=== PATIENT | male | born 1950 | race African-American/Black ===

== ENCOUNTER 2020-06-15 12:42 | Inpatient (IN) | payer OTHER ==
[~2020-06-15] VITALS: Ht 170.2 cm; Wt 71.2 kg
--- NOTE | 2020-06-15 15:25 | NUR ---
Admission Note with Justification for Admission to [facility] Patient admitted to [facility] for protective oversight for emergency stabilization of acute psychiatric crisis. Pt admitted from: [facility] Mode of arrival: EMS Accompanied By: Secure Transport Precipitating behaviors that initiated intake and admission: agitation, paranoia Description of failure of out patient attempts at stabilization in previous setting list behavior and medication trials: seroquel Behaviors and assessment findings upon admission: Agitation, threatening, paranoid Plan: Admit for protective oversight for adjustment and stabilization of medications, behaviors and mood. Intense treatment regimen including groups, medication adjustments, therapy, consistent regimen for ADL's, self care, and sleep hygiene. Daily monitoring by Inpatient staff, Psychiatry, and Medical Physician.
--- NOTE | 2020-06-15 15:51 | NUR ---
Mauricio has [facility] Medicaid insurance. Call placed to Ame Riddle at [facility] and received pending authorization number of [id number]. Call reference number is [place] 06/15/20 2:53pm. Clinical updates need to be faxed to [phone].
[2020-06-15 17:15] VITALS: BP 127/73
[2020-06-15] MEDS ORDERED: ACET325T21 PO (17:46)
[2020-06-15] MEDS ORDERED: QUET25TA5 PO (17:47)
[2020-06-15] MEDS ORDERED: CETI10TA74 PO (17:47)
[2020-06-15] MEDS ORDERED: HYDR-2765 PO (17:47)
[2020-06-15] MEDS ORDERED: THIA100T22 PO (17:47)
[2020-06-15] MEDS ORDERED: AMLO2.5T2 PO (17:47)
[2020-06-15] MEDS ORDERED: FOLI0.8T32 PO (17:47)
[2020-06-15] MEDS ORDERED: LORA0.5T21 PO ×2 (17:47)
[2020-06-15] MEDS ORDERED: MAG355OR12 PO ×2 (17:47)
[2020-06-15] MEDS ORDERED: DOCU100C28 PO (17:47)
[2020-06-15] MEDS ORDERED: OMEP20TA63 PO (17:47)
[2020-06-15] MEDS ORDERED: TRAZ-125 PO ×2 (17:47)
[2020-06-15] MEDS ORDERED: DOCUSATE SODIUM 100 MG CAPSULE PO PRN (18:00)
[2020-06-15] MEDS: CETIRIZINE HCL 10 MG TABLET PO SCH (20:08)
[2020-06-15] MEDS: THIAMINE 100 MG TABLET. PO SCH (20:08)
[2020-06-15] MEDS: LORazepam 0.5 MG TABLET PO SCH (20:09)
[2020-06-15] MEDS: traZODone 100 MG TABLET. PO SCH (20:09)
[2020-06-15] MEDS: amLODIPine BESYLATE 2.5 MG TABLET PO SCH (20:09)
[2020-06-15] MEDS: HYDROcodone/APAP 7.5/325MG 1 TAB TABLET PO SCH (20:10)
[2020-06-15] MEDS ORDERED: QUEtiapine 25 MG TABLET. PO SCH (21:00)
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
[2020-06-16] MEDS: ACETAMINOPHEN 325 MG TABLET PO PRN (00:20)
[2020-06-16 05:29] VITALS: BP 131/78
[2020-06-16 07:48] LABS: BASO # 0.1 x10^3/uL (0.0-0.2); BASO % 1 % (0-3); EOS # 0.2 x10^3/uL (0.0-0.7); EOS % 3 % (0-3); HEMATOCRIT 29.7 % (39.0-53.0); HEMOGLOBIN 9.5 g/dL (13.0-17.5); LYMPH # 1.1 x10^3/uL (1.0-4.8); LYMPH % 15 % (24-48); MEAN CORPUSCULAR HEMOGLOBIN 27 pg (25-35); MEAN CORPUSCULAR HGB CONC 32 g/dL (31-37); MEAN CORPUSCULAR VOLUME 85 fL (79-100); MONO # 0.5 x10^3/uL (0.0-1.1); MONO % 7 % (0-9); NEUT # 5.3 x10^3uL (1.8-7.7); NEUT % 74 % (31-73); PLATELET COUNT 328 x10^3/uL (140-400); RED BLOOD COUNT 3.48 x10^6/uL (4.30-5.70); RED CELL DISTRIBUTION WIDTH 14.8 % (11.5-14.5); WHITE BLOOD COUNT 7.2 x10^3/uL (4.0-11.0)
[2020-06-16 08:06] LABS: ALBUMIN 3.1 g/dL (3.4-5.0); ALBUMIN/GLOBULIN RATIO 0.8 (1.0-1.7); CALCIUM 8.8 mg/dL (8.5-10.1); CREATININE 0.8 mg/dL (0.7-1.3); GFR 116.3; MAGNESIUM 2.2 mg/dL (1.8-2.4); POTASSIUM 3.7 mmol/L (3.5-5.1); TOTAL BILIRUBIN 0.4 mg/dL (0.2-1.0); TOTAL PROTEIN 7.2 g/dL (6.4-8.2)
[2020-06-16] MEDS: traZODone 100 MG TABLET. PO SCH ×2 (08:47→19:47)
[2020-06-16] MEDS: FOLIC/VIT B COMP W-C (RENAL) TABLET. PO SCH (08:47)
[2020-06-16] MEDS: LORazepam 0.5 MG TABLET PO SCH ×2 (08:47→19:49)
[2020-06-16] MEDS: THIAMINE 100 MG TABLET. PO SCH ×2 (08:47→19:48)
[2020-06-16] MEDS: HYDROcodone/APAP 7.5/325MG 1 TAB TABLET PO SCH ×2 (08:47→19:49)
[2020-06-16] MEDS: amLODIPine BESYLATE 2.5 MG TABLET PO SCH ×2 (08:48→19:48)
[2020-06-16] MEDS: PANTOPRAZOLE 40 MG TABLET. PO SCH (08:48)
[2020-06-16] MEDS ORDERED: MAG HYDROX/AL HYDROX/SIMETH 30 ML ORAL.SUSP PO SCH (09:00)
[2020-06-16 11:13] LABS: THYROID STIM HORMONE (TSH) 1.335 uIU/mL (0.358-3.740)
[2020-06-16 15:52] VITALS: BP 111/72
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
[2020-06-16] MEDS: CETIRIZINE HCL 10 MG TABLET PO SCH (19:47)
[2020-06-16] MEDS: MIRTAZAPINE 7.5 MG TABLET. PO SCH (19:48)
--- NOTE | 2020-06-16 21:28 | PDOC ---
Exam Note: Srini Note: Please also refer to the separate dictated note~for this date of service dictated separately.~Patient seen individually. Discussed the patient with Nursing staff reviewed the chart.~Reviewed interim history and current functioning. Reviewed vital signs,~Labs/ Radiology~and current medications noted below. Continue current treatment with the changes noted in the dictated addendum note Assessment: Vital Signs/I&O: Vital Signs Date Time Temp Pulse Resp B/P (MAP) Pulse Ox O2 Delivery O2 Flow Rate FiO2 06/16/20 21:04 98 06/16/20 19:48 110 111/72 06/16/20 15:52 98.5 20 06/16/20 09:49 Room Air I & O 06/15/20 06/15/20 06/16/20 15:00 23:00 07:00 Intake Total 360 ml Balance 360 ml Labs: Laboratory Tests Test 06/16/20 06:00 06/16/20 07:30 Coronavirus (PCR) Not detected (Not Detected) White Blood Count 7.2 x10^3/uL (4.0-11.0) Red Blood Count 3.48 x10^6/uL (4.30-5.70) L Hemoglobin 9.5 g/dL (13.0-17.5) L Hematocrit 29.7 % (39.0-53.0) L Mean Corpuscular Volume 85 fL (79-100) Mean Corpuscular Hemoglobin 27 pg (25-35) Mean Corpuscular Hemoglobin Concent 32 g/dL (31-37) Red Cell Distribution Width 14.8 % (11.5-14.5) H Platelet Count 328 x10^3/uL (140-400) Neutrophils (%) (Auto) 74 % (31-73) H Lymphocytes (%) (Auto) 15 % (24-48) L Monocytes (%) (Auto) 7 % (0-9) Eosinophils (%) (Auto) 3 % (0-3) Basophils (%) (Auto) 1 % (0-3) Neutrophils # (Auto) 5.3 x10^3uL (1.8-7.7) Lymphocytes # (Auto) 1.1 x10^3/uL (1.0-4.8) Monocytes # (Auto) 0.5 x10^3/uL (0.0-1.1) Eosinophils # (Auto) 0.2 x10^3/uL (0.0-0.7) Basophils # (Auto) 0.1 x10^3/uL (0.0-0.2) Sodium Level 140 mmol/L (136-145) Potassium Level 3.7 mmol/L (3.5-5.1) Chloride Level 103 mmol/L (98-107) Carbon Dioxide Level 30 mmol/L (21-32) Anion Gap 7 (6-14) Blood Urea Nitrogen 18 mg/dL (8-26) Creatinine 0.8 mg/dL (0.7-1.3) Estimated GFR (Cockcroft-Gault) 116.3 BUN/Creatinine Ratio 23 (6-20) H Glucose Level 114 mg/dL (70-99) H Calcium Level 8.8 mg/dL (8.5-10.1) Magnesium Level 2.2 mg/dL (1.8-2.4) Iron Level 75 ug/dL (65-175) Total Iron Binding Capacity 317 ug/dL (250-450) Iron Saturation 24 % (15-34) Total Bilirubin 0.4 mg/dL (0.2-1.0) Aspartate Amino Transferase (AST) 24 U/L (15-37) Alanine Aminotransferase (ALT) 56 U/L (16-63) Alkaline Phosphatase 125 U/L (46-116) H Total Protein 7.2 g/dL (6.4-8.2) Albumin 3.1 g/dL (3.4-5.0) L Albumin/Globulin Ratio 0.8 (1.0-1.7) L Triglycerides Level 53 mg/dL (0-150) Cholesterol Level 162 mg/dL (0-200) LDL Cholesterol, Calculated 91 mg/dL (0-100) VLDL Cholesterol, Calculated 10 mg/dL (0-40) Non-HDL Cholesterol Calculated 101 mg/dL (0-129) HDL Cholesterol 61 mg/dL (40-60) H Cholesterol/HDL Ratio 2.0 Thyroid Stimulating Hormone (TSH) 1.335 uIU/mL (0.358-3.740) Current Medications: Meds: Current Medications Medications (Trade) Dose Ordered Sig/Jasmeet Route PRN Reason Start Time Stop Time Status Last Admin Dose Admin Multivit/Ca Carb/ B Cmplx/FA/Prenat (Nephro-Marilyn) 1 tab DAILY PO 06/16/20 09:00 06/16/20 08:47 Pantoprazole Sodium (Protonix) 40 mg DAILY PO 06/16/20 09:00 06/16/20 08:48 Mirtazapine (Remeron) 7.5 mg QHS PO 06/16/20 21:00 06/16/20 19:48 I have reviewed the current psychotropics carefully including drug interactions. Risk benefit ratio favors no change other than as noted in my dictated progress note. ARY PABLO MD Jun 16, 2020 21:28
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
--- NOTE | 2020-06-17 00:33 | PN ---
DATE: 06/16/2020 PSYCHIATRIC PROGRESS NOTE This note covers elements not covered in my initial note of 06/16/2020. SUBJECTIVE: I met with the patient in the evening of 06/16/2020. At length discussed with MALACHI Locke. The patient slept just 2 hours previous night. He has been anxious, restless, hyperverbal, constantly moving around the unit. He is demanding to leave, restless, paranoid at night. REVIEW OF SYSTEMS: No CV, , pulmonary, eye system symptoms on review. MENTAL STATUS EXAM: Oriented to himself. Insight, judgment, recent and remote memory, attention, concentration, fund of knowledge poor, consistent with his diagnosis. IMPRESSION: Major neurocognitive disorder, multifactorial, probably alcohol related and vascular with delusion, depression, behavioral disturbance; anxiety disorder, unspecified; impulse control disorder, unspecified. PLAN: The patient slept just 2 hours previous night. We will add Remeron 7.5 mg at bedtime to help with insomnia. Change Seroquel 25 mg at bedtime to 25 mg at 9 a.m., 1:00 p.m., and 5:00 p.m. We will make further adjustments as clinically indicated. MAN Matt PABLO MD DR: MARISELA/deejay JOB#: [id number] / [id number]
[2020-06-17 02:06] LABS: THYROXINE 5.2 ug/dL (4.5-12.0)
[2020-06-17] MEDS: ACETAMINOPHEN 325 MG TABLET PO PRN ×2 (04:54→23:32)
--- NOTE | 2020-06-17 05:27 | RAD ---
3 view bilateral knee radiographs 06/17/2020 CLINICAL HISTORY: Bilateral pain and swelling involving both knees. AP, lateral and oblique digital radiographs of both knees were obtained. No fracture or dislocation o f either knee is seen. A serpiginous sclerotic area is seen involving the proximal metaphysis/diaphys is of the left tibia which may represent an area of bone infarction. Mild to moderate degenerative ch anges are seen involving both knees. There is no radiographic evidence of a joint effusion. Scattered atherosclerotic calcification is seen in the region popliteal arteries and their branches. IMPRESSION: No acute osseous abnormality is seen. Electronically signed by: Cristhian Cárdenas MD (06/17/2020 5:24 AM) [id number]
[2020-06-17 05:38] LABS: HEMOGLOBIN A1C 4.6 % (4.8-5.6)
[2020-06-17] MEDS: MAG HYDROX/AL HYDROX/SIMETH 30 ML ORAL.SUSP PO PRN (06:13)
[2020-06-17 06:32] VITALS: BP 128/79
[2020-06-17] MEDS: LORazepam 0.5 MG TABLET PO SCH ×2 (08:29→21:04)
[2020-06-17] MEDS: amLODIPine BESYLATE 2.5 MG TABLET PO SCH ×2 (08:29→18:35)
[2020-06-17] MEDS: traZODone 100 MG TABLET. PO SCH ×2 (08:29→18:34)
[2020-06-17] MEDS: FOLIC/VIT B COMP W-C (RENAL) TABLET. PO SCH (08:30)
[2020-06-17] MEDS: QUEtiapine 25 MG TABLET. PO SCH ×3 (08:30→15:09)
[2020-06-17] MEDS: HYDROcodone/APAP 7.5/325MG 1 TAB TABLET PO SCH ×2 (08:30→21:04)
[2020-06-17] MEDS: THIAMINE 100 MG TABLET. PO SCH ×2 (08:30→18:34)
[2020-06-17] MEDS: PANTOPRAZOLE 40 MG TABLET. PO SCH (08:30)
--- NOTE | 2020-06-17 09:53 | RAD ---
EXAM: Bilateral lower extremity venous Doppler sonogram. HISTORY: Pain and swelling. TECHNIQUE: Ventura scale and color Doppler sonographic evaluation of the bilateral lower extremity veins with spectral waveform analysis was performed. FINDINGS: There is normal color flow, normal compressibility and there are normal spectral waveforms in the common femoral, superficial femoral, popliteal, posterior tibial and greater saphenous veins. There is bilateral lower extremity soft tissue edema. There are prominent bilateral inguinal lymph no latasha. These maintain fatty black are likely reactive in etiology. IMPRESSION: No Doppler evidence of lower extremity deep venous thrombosis. Electronically signed by: Angelica Alonzo MD (06/17/2020 9:50 AM) [id number]
--- NOTE | 2020-06-17 15:06 | NUR ---
Patient is obsessed with leaving. patient is wandering and asking all staff to let jaycob go home. Patient difficult to redirect.
[2020-06-17 16:20] VITALS: BP 124/81
[2020-06-17] MEDS: CETIRIZINE HCL 10 MG TABLET PO SCH (18:33)
[2020-06-17] MEDS: MIRTAZAPINE 7.5 MG TABLET. PO SCH (18:34)
--- NOTE | 2020-06-17 21:01 | PDOC ---
Exam Note: Srini Note: Please also refer to the separate dictated note~for this date of service dictated separately.~Patient seen individually. Discussed the patient with Nursing staff reviewed the chart.~Reviewed interim history and current functioning. Reviewed vital signs,~Labs/ Radiology~and current medications noted below. Continue current treatment with the changes noted in the dictated addendum note Assessment: Vital Signs/I&O: Vital Signs Date Time Temp Pulse Resp B/P (MAP) Pulse Ox O2 Delivery O2 Flow Rate FiO2 06/17/20 18:35 108 124/81 06/17/20 16:20 97.0 20 94 06/17/20 09:47 Room Air I & O 06/16/20 06/16/20 06/17/20 15:00 23:00 07:00 Intake Total 480 ml 750 ml Balance 480 ml 750 ml Current Medications: Meds: Current Medications Medications (Trade) Dose Ordered Sig/Jasmeet Route PRN Reason Start Time Stop Time Status Last Admin Dose Admin Quetiapine Fumarate (SEROquel) 25 mg TIDAC PO 06/17/20 09:00 06/17/20 15:09 Mirtazapine (Remeron) 7.5 mg QHS PO 06/16/20 21:00 06/17/20 18:34 I have reviewed the current psychotropics carefully including drug interactions. Risk benefit ratio favors no change other than as noted in my dictated progress note. Diagnosis: Problems: (1) Major neurocognitive disorder (2) Dementia associated with alcoholism with behavioral disturbance (3) Dementia in Alzheimer's disease with delusions (4) Dementia in Alzheimer's disease with depression (5) Dementia, vascular, with delusions (6) Dementia, vascular, with depression (7) Anxiety disorder, unspecified (8) Impulse control disorder, unspecified ARY PABLO MD Jun 17, 2020 21:01
--- NOTE | 2020-06-17 23:59 | NUR ---
Patient is located in the hallway on assumption of care, walking around the unit. He continues to be hyperverbal, perseverative about his money and wanting to leave, and getting snacks and vanilla Ensures. Patient repeatedly talks about these subjects and when explanations are provided to him, he doesn't retain that information. Compliant with assessments and medications whole. PRN Zydis given to patient with HS meds, little effect. Complained of bilateral knee pain and requested PRN, Tylenol given at 2345, pending effect. Patient remains awake in his room at present time, sitting quietly. Will continue to monitor.
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
[2020-06-18 06:36] VITALS: BP 135/79
[2020-06-18] MEDS: QUEtiapine 25 MG TABLET. PO SCH ×3 (07:30→16:30)
--- NOTE | 2020-06-18 08:45 | PDOC ---
Exam Note: Srini Note: This note is a late entry for 06/17/2020 covers elements not covered in my initial note. Subjective: The patient was seen face to face in the evening of 06/17/2020 with Morales LY, reviewed the chart. The patient slept 3-1/2 hours previous night. The patient has been obsessed and fixated on discharge. He did have a shower, listening to music on his tablet. He remains quite confused. Review of Systems: No CV, , pulmonary, eye system symptoms on review. Mental Status Exam: The patient is oriented to himself. Insight and judgment, recent and remote memory, attention and concentration, fund of knowledge is poor consistent with his diagnosis. Laboratory Data: Reviewed. Impression: Major neurocognitive disorder Alzheimer vascular with delusion, depression, behavioral disturbance. Anxiety disorder unspecified. Impulse control disorder unspecified. Plan: No change from initial note. Assessment: Vital Signs/I&O: Vital Signs Date Time Temp Pulse Resp B/P (MAP) Pulse Ox O2 Delivery O2 Flow Rate FiO2 06/18/20 06:36 98.1 85 14 135/79 (97) 100 Room Air I & O 06/17/20 06/17/20 06/18/20 15:00 23:00 07:00 Intake Total 480 ml 480 ml 120 ml Balance 480 ml 480 ml 120 ml Current Medications: Meds: Current Medications Medications (Trade) Dose Ordered Sig/Jasmeet Route PRN Reason Start Time Stop Time Status Last Admin Dose Admin Acetaminophen (Tylenol) 650 mg PRN Q4HRS PRN PO MILD PAIN / TEMP > 100.3'F 06/15/20 18:00 06/17/20 23:32 Amlodipine Besylate (Norvasc) 2.5 mg BID PO 06/15/20 21:00 06/17/20 18:35 Cetirizine HCl (ZyrTEC) 10 mg HS PO 06/15/20 21:00 06/17/20 18:33 Docusate Sodium (Colace) 100 mg PRN BID PRN PO CONSTIPATION 06/15/20 18:00 Multivit/Ca Carb/ B Cmplx/FA/Prenat (Nephro-Marilyn) 1 tab DAILY PO 06/16/20 09:00 06/17/20 08:30 Acetaminophen/ Hydrocodone Bitart (Lortab 7.5/325) 1 tab BID PO 06/15/20 21:00 06/17/20 21:04 Lorazepam (Ativan) 0.5 mg BID PO 06/15/20 21:00 06/17/20 21:04 Al Hydroxide/Mg Hydroxide (Mylanta Plus Xs) 30 ml PRN DAILY PRN PO DYSPEPSIA 06/15/20 18:00 06/17/20 06:13 Al Hydroxide/Mg Hydroxide (Mylanta Plus Xs) 355 ml DAILY PO 06/16/20 09:00 UNV Quetiapine Fumarate (SEROquel) 25 mg HS PO 06/15/20 21:00 06/16/20 16:15 DC 06/15/20 20:09 Thiamine HCl (Vitamin B-1) 100 mg BID PO 06/15/20 21:00 06/17/20 18:34 Trazodone HCl (Desyrel) 100 mg BID PO 06/15/20 21:00 06/17/20 18:34 Pantoprazole Sodium (Protonix) 40 mg DAILY PO 06/16/20 09:00 06/17/20 08:30 Olanzapine (ZyPREXA ZYDIS) 5 mg PRN Q2HR PRN PO PSYCHOSIS 06/15/20 18:00 06/17/20 21:04 Quetiapine Fumarate (SEROquel) 25 mg TIDAC PO 06/17/20 09:00 06/17/20 15:09 Mirtazapine (Remeron) 7.5 mg QHS PO 06/16/20 21:00 06/17/20 18:34 Current Medications Medications (Trade) Dose Ordered Sig/Jasmeet Route PRN Reason Start Time Stop Time Status Last Admin Dose Admin Quetiapine Fumarate (SEROquel) 25 mg TIDAC PO 06/17/20 09:00 06/17/20 15:09 I have reviewed the current psychotropics carefully including drug interactions. Risk benefit ratio favors no change other than as noted in my dictated progress note. Diagnosis: Problems: (1) Impulse control disorder, unspecified (2) Anxiety disorder, unspecified (3) Dementia, vascular, with depression (4) Dementia, vascular, with delusions (5) Dementia in Alzheimer's disease with depression (6) Dementia in Alzheimer's disease with delusions (7) Major neurocognitive disorder (8) Dementia associated with alcoholism with behavioral disturbance ARY PABLO MD Jun 18, 2020 08:44
[2020-06-18] MEDS: traZODone 100 MG TABLET. PO SCH ×2 (09:00→20:49)
[2020-06-18] MEDS: amLODIPine BESYLATE 2.5 MG TABLET PO SCH ×2 (09:00→20:50)
[2020-06-18] MEDS: FOLIC/VIT B COMP W-C (RENAL) TABLET. PO SCH (09:00)
[2020-06-18] MEDS: THIAMINE 100 MG TABLET. PO SCH ×2 (09:00→20:49)
[2020-06-18] MEDS: PANTOPRAZOLE 40 MG TABLET. PO SCH (09:00)
[2020-06-18] MEDS: HYDROcodone/APAP 7.5/325MG 1 TAB TABLET PO SCH ×2 (09:00→21:01)
[2020-06-18] MEDS: LORazepam 0.5 MG TABLET PO SCH ×2 (09:00→21:01)
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
--- NOTE | 2020-06-18 11:40 | NUR ---
ACTIVITY THERAPY ASSESSMENT completed based on notes, observation and interview. Pt was laying in quiet room with her eyes open. Pt had pulled her arms through the top of her onesie which exposed a small quarter size bruise on her shoulder. Pt was impulsive, agitated and not redirectable during time of assessment. AT introduced herself and pt yelled at AT "I know who you are" in an agitated manner. AT asked if she remembered her and remembered being here and pt yelled "yes". AT asked pt what activities she likes to do, she yelled "none" . Pt yelled out all her answers and some often unrelated to the question being asked. When asked how old she was and what year it was pt yelled "51" and "". Pt said that she does not like activities with her family or friends. AT said "thank you Olga for meeting with me" which pt replied with "eladio Espinoza". As AT left room pt said "fucking [facility] [employer] Initial goal aimed to increase time management and stress management/relaxation skills. Pt will participate in at least three individual or group Activity Therapy sessions before discharge. Addendum: 06/25/20 at 1428 by CAROLIN PAGAN ACT DISREGARD. NOTE BELONGS TO A DIFFERENT PATIENT
--- NOTE | 2020-06-18 12:09 | NUR ---
See downtime med rec for am medication administration.
--- NOTE | 2020-06-18 12:30 | NUR ---
WEEKLY ACTIVITY THERAPY NOTE Date of Admission: 06/15/2020 Date of AT Assessment: 06/18 Precipitating behaviors that initiated intake and admission: agitation, paranoia Goal aimed: increase stress management and relaxation skills Initial Goal: Pt will participate in at least three Activity Therapy group sessions per week. Weekly progress towards goal: NA Group participation level: 2 min on Thursday Weekly highlights: briefly engaged in both groups on Thursday Behaviors observed: hyperverbal, jumps from thought to thought, difficulty focusing Plan: meet/ assess Pt Beneficial adaptations:
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
[2020-06-18 16:14] VITALS: BP 122/78
--- NOTE | 2020-06-18 17:21 | NUR ---
Pt has been fixated on various topics today ranging from calling his sister, having food delivered to [facility] for himself, his money, and various belongings. He often requires multiple attempts at explanation and redirection. He is complaint with medications and assessment, cooperative and appropriate in his interactions with staff and other pts. Will pass on to the next shift
[2020-06-18] MEDS: CETIRIZINE HCL 10 MG TABLET PO SCH (20:49)
[2020-06-18] MEDS ORDERED: MIRTAZAPINE 7.5 MG TABLET. PO SCH (21:00)
[2020-06-18] MEDS: MIRTAZAPINE 15 MG TABLET PO SCH (21:04)
--- NOTE | 2020-06-18 21:11 | PDOC ---
Exam Note: Srini Note: Please also refer to the separate dictated note~for this date of service dictated separately.~Patient seen individually. Discussed the patient with Nursing staff reviewed the chart.~Reviewed interim history and current functioning. Reviewed vital signs,~Labs/ Radiology~and current medications noted below. Continue current treatment with the changes noted in the dictated addendum note Assessment: Vital Signs/I&O: Vital Signs Date Time Temp Pulse Resp B/P (MAP) Pulse Ox O2 Delivery O2 Flow Rate FiO2 06/18/20 20:50 108 122/78 06/18/20 16:14 97.2 20 100 06/18/20 06:36 Room Air I & O 06/17/20 06/17/20 06/18/20 15:00 23:00 07:00 Intake Total 480 ml 480 ml 120 ml Balance 480 ml 480 ml 120 ml Current Medications: Meds: Current Medications Medications (Trade) Dose Ordered Sig/Jasmeet Route PRN Reason Start Time Stop Time Status Last Admin Dose Admin Acetaminophen (Tylenol) 650 mg PRN Q4HRS PRN PO MILD PAIN / TEMP > 100.3'F 06/15/20 18:00 06/17/20 23:32 Amlodipine Besylate (Norvasc) 2.5 mg BID PO 06/15/20 21:00 06/18/20 20:50 Cetirizine HCl (ZyrTEC) 10 mg HS PO 06/15/20 21:00 06/18/20 20:49 Docusate Sodium (Colace) 100 mg PRN BID PRN PO CONSTIPATION 06/15/20 18:00 Multivit/Ca Carb/ B Cmplx/FA/Prenat (Nephro-Marilyn) 1 tab DAILY PO 06/16/20 09:00 06/17/20 08:30 Acetaminophen/ Hydrocodone Bitart (Lortab 7.5/325) 1 tab BID PO 06/15/20 21:00 06/18/20 21:01 Lorazepam (Ativan) 0.5 mg BID PO 06/15/20 21:00 06/18/20 21:01 Al Hydroxide/Mg Hydroxide (Mylanta Plus Xs) 30 ml PRN DAILY PRN PO DYSPEPSIA 06/15/20 18:00 06/17/20 06:13 Al Hydroxide/Mg Hydroxide (Mylanta Plus Xs) 355 ml DAILY PO 06/16/20 09:00 UNV Quetiapine Fumarate (SEROquel) 25 mg HS PO 06/15/20 21:00 06/16/20 16:15 DC 06/15/20 20:09 Thiamine HCl (Vitamin B-1) 100 mg BID PO 06/15/20 21:00 06/18/20 20:49 Trazodone HCl (Desyrel) 100 mg BID PO 06/15/20 21:00 06/18/20 20:49 Pantoprazole Sodium (Protonix) 40 mg DAILY PO 06/16/20 09:00 06/17/20 08:30 Olanzapine (ZyPREXA ZYDIS) 5 mg PRN Q2HR PRN PO PSYCHOSIS 06/15/20 18:00 06/17/20 21:04 Quetiapine Fumarate (SEROquel) 25 mg TIDAC PO 06/17/20 09:00 06/18/20 16:30 Mirtazapine (Remeron) 7.5 mg QHS PO 06/16/20 21:00 06/18/20 20:59 DC 06/17/20 18:34 Sertraline HCl (Zoloft) 25 mg DAILY PO 06/19/20 09:00 Mirtazapine (Remeron) 7.5 mg QHS PO 06/18/20 21:00 06/18/20 20:59 DC Mirtazapine (Remeron) 15 mg QHS PO 06/18/20 21:00 06/18/20 21:04 Current Medications Medications (Trade) Dose Ordered Sig/Jasmeet Route PRN Reason Start Time Stop Time Status Last Admin Dose Admin Mirtazapine (Remeron) 15 mg QHS PO 06/18/20 21:00 06/18/20 21:04 I have reviewed the current psychotropics carefully including drug interactions. Risk benefit ratio favors no change other than as noted in my dictated progress note. Diagnosis: Problems: (1) Impulse control disorder, unspecified (2) Anxiety disorder, unspecified (3) Dementia, vascular, with depression (4) Dementia, vascular, with delusions (5) Dementia in Alzheimer's disease with depression (6) Dementia in Alzheimer's disease with delusions (7) Major neurocognitive disorder (8) Dementia associated with alcoholism with behavioral disturbance ARY PABLO MD Jun 18, 2020 21:11
--- NOTE | 2020-06-18 21:30 | NUR ---
Patient has been pacing in the hallway, wanting to make phone calls to his sister. He has also been asking for lotion for "his legs" and went into great detail about how he soaks his legs in epsom salts then puts lotion on them. (staff reported that he was actually using the lotion to masturbate). Patient angry when he cannot have any more lotion. Patient compliant with medications taken whole with water. Urine sample obtained, it was negative and did not go to culture.
[2020-06-18 21:49] LABS: BACTERIA,URINE 0 /HPF (0-FEW); BILIRUBIN,URINE NEG (NEG); CLARITY,URINE CLEAR; COLOR,URINE YELLOW; GLUCOSE,URINE NEG (NEG); NITRITE,URINE NEG (NEG); RBC,URINE 0 /HPF (0-2); WBC,URINE 0 /HPF (0-4)
--- NOTE | 2020-06-19 00:19 | NUR ---
Patient has been attention seeking most of the night, making frequent requests for water, snacks and lotion. When patient is told he cannot have these items because he already has had them multiple times this shift, he gets angry, curses and slams his door. PRN zyprexa given for agitation as ordered. Will continue to monitor.
[2020-06-19] MEDS: ACETAMINOPHEN 325 MG TABLET PO PRN (02:51)
[2020-06-19] MEDS: MAG HYDROX/AL HYDROX/SIMETH 30 ML ORAL.SUSP PO PRN (04:40)
--- NOTE | 2020-06-19 04:41 | NUR ---
Patient reports dyspepsia. Requests mylanta. PRN mylanta provided per order.
[2020-06-19 06:07] VITALS: BP 108/71
[2020-06-19] MEDS: QUEtiapine 25 MG TABLET. PO SCH ×2 (07:30→11:30)
[2020-06-19] MEDS: LORazepam 0.5 MG TABLET PO SCH ×2 (09:00→20:19)
[2020-06-19] MEDS: HYDROcodone/APAP 7.5/325MG 1 TAB TABLET PO SCH ×2 (09:00→20:20)
[2020-06-19] MEDS: FOLIC/VIT B COMP W-C (RENAL) TABLET. PO SCH (09:00)
[2020-06-19] MEDS: THIAMINE 100 MG TABLET. PO SCH ×2 (09:00→20:18)
[2020-06-19] MEDS: SERTRALINE 25 MG TABLET. PO SCH (09:00)
[2020-06-19] MEDS: PANTOPRAZOLE 40 MG TABLET. PO SCH (09:00)
[2020-06-19] MEDS: amLODIPine BESYLATE 2.5 MG TABLET PO SCH ×2 (09:00→20:18)
[2020-06-19] MEDS: traZODone 100 MG TABLET. PO SCH ×2 (09:00→20:18)
--- NOTE | 2020-06-19 11:04 | NUR ---
Per request of Gracia Hernández, faxed update for concurrent review to [employer] to fax number [phone]. Awaiting outcome. Addendum: 06/19/20 at 1651 by BRANNON ALONSO Mauricio has been approved thru 06/22/20, next review due on 06/22/20.
--- NOTE | 2020-06-19 16:02 | NUR ---
Pt presents with pressured speech and hyperfixation over his personal belongings, in particular the belongings in the facility safe. Attempts and explanation of facility policy is difficult d/t pt dominating the conversation. He often presents with flight of ideas and it's difficult to keep up with the shifting topics, which are often unrelated to eachother. He is often grandiose in his delusions, in particular concerning his wealth and belongings. He denies SI/HI/VA/AH. He has been absent of aggressive behaviors so far this shift. PRN Mylanta administered for c/o nausea with reported effectiveness. Will pass on to the next shift.
[2020-06-19 16:24] VITALS: BP 152/82
[2020-06-19] MEDS: CETIRIZINE HCL 10 MG TABLET PO SCH (20:18)
[2020-06-19] MEDS: DIVALPROEX 125 MG CAP.SPRINK PO SCH (20:18)
[2020-06-19] MEDS: MIRTAZAPINE 15 MG TABLET PO SCH (20:19)
--- NOTE | 2020-06-19 21:35 | PDOC ---
Exam Note: Srini Note: This note is a late entry for 06/18/2020 covers elements not covered in my initial note. Subjective: The patient was seen face to face in the morning of 06/18/2020 for a treatment team meeting with Haylie Yoo, Cassie Vazquez and Judy (social welfare research worker), Krysten Schroeder, activity therapy and Julia LY, discussed the patients diagnosis, progress, and reviewed the chart. The patient slept 2-3/4 hours previous night. We got further historical information from the patients sister. He has a history of alcohol abuse, mainly beer. No drug abuse. He remains hyperverbal, confused, states he needs to leave to pay off his bills, and believes people are stealing his possessions. He received Zyprexa and Tylenol previous night. Review of Systems: No CV, , pulmonary, eye system symptoms on review. Reliability poor. Mental Status Exam: The patient is oriented to himself. Insight and judgment, recent and remote memory, attention and concentration, fund of knowledge is poor consistent with his diagnosis. Laboratory Data: Reviewed. Impression: Major neurocognitive disorder Alzheimer vascular with delusion, depression, behavioral disturbance. Anxiety disorder unspecified. Impulse control disorder unspecified. Plan: No change from initial note. Continue current psychotropics. Start Remeron 7.5 mg h.s. to help with insomnia. Initiate Zoloft 25 mg a day. Assessment: Vital Signs/I&O: Vital Signs Date Time Temp Pulse Resp B/P (MAP) Pulse Ox O2 Delivery O2 Flow Rate FiO2 06/19/20 20:20 18 Room Air 06/19/20 20:18 111 152/82 06/19/20 16:24 97.6 100 I & O 06/18/20 06/18/20 06/19/20 15:00 23:00 07:00 Intake Total 480 ml 360 ml 120 ml Balance 480 ml 360 ml 120 ml Current Medications: Meds: Current Medications Medications (Trade) Dose Ordered Sig/Jasmeet Route PRN Reason Start Time Stop Time Status Last Admin Dose Admin Acetaminophen (Tylenol) 650 mg PRN Q4HRS PRN PO MILD PAIN / TEMP > 100.3'F 06/15/20 18:00 06/19/20 02:51 Amlodipine Besylate (Norvasc) 2.5 mg BID PO 06/15/20 21:00 2/16/21 20:18 Cetirizine HCl (ZyrTEC) 10 mg HS PO 06/15/20 21:00 06/19/20 20:18 Docusate Sodium (Colace) 100 mg PRN BID PRN PO CONSTIPATION 06/15/20 18:00 Multivit/Ca Carb/ B Cmplx/FA/Prenat (Nephro-Marilyn) 1 tab DAILY PO 06/16/20 09:00 06/19/20 09:00 Acetaminophen/ Hydrocodone Bitart (Lortab 7.5/325) 1 tab BID PO 06/15/20 21:00 06/19/20 20:20 Lorazepam (Ativan) 0.5 mg BID PO 06/15/20 21:00 06/19/20 20:19 Al Hydroxide/Mg Hydroxide (Mylanta Plus Xs) 30 ml PRN DAILY PRN PO DYSPEPSIA 06/15/20 18:00 06/19/20 04:40 Al Hydroxide/Mg Hydroxide (Mylanta Plus Xs) 355 ml DAILY PO 06/16/20 09:00 UNV Quetiapine Fumarate (SEROquel) 25 mg HS PO 06/15/20 21:00 06/16/20 16:15 DC 06/15/20 20:09 Thiamine HCl (Vitamin B-1) 100 mg BID PO 06/15/20 21:00 06/19/20 20:18 Trazodone HCl (Desyrel) 100 mg BID PO 06/15/20 21:00 06/19/20 20:18 Pantoprazole Sodium (Protonix) 40 mg DAILY PO 06/16/20 09:00 06/19/20 09:00 Olanzapine (ZyPREXA ZYDIS) 5 mg PRN Q2HR PRN PO PSYCHOSIS 06/15/20 18:00 06/19/20 00:22 Quetiapine Fumarate (SEROquel) 25 mg TIDAC PO 06/17/20 09:00 06/19/20 11:30 Mirtazapine (Remeron) 7.5 mg QHS PO 06/16/20 21:00 06/18/20 20:59 DC 06/17/20 18:34 Sertraline HCl (Zoloft) 25 mg DAILY PO 06/19/20 09:00 06/19/20 09:00 Mirtazapine (Remeron) 7.5 mg QHS PO 06/18/20 21:00 06/18/20 20:59 DC Mirtazapine (Remeron) 15 mg QHS PO 06/18/20 21:00 06/19/20 20:19 Divalproex Sodium (Depakote Sprinkles) 250 mg 0900,2100 PO 06/19/20 21:00 06/19/20 20:18 Current Medications Medications (Trade) Dose Ordered Sig/Jasmeet Route PRN Reason Start Time Stop Time Status Last Admin Dose Admin Sertraline HCl (Zoloft) 25 mg DAILY PO 06/19/20 09:00 06/19/20 09:00 Divalproex Sodium (Depakote Sprinkles) 250 mg 0900,2100 PO 06/19/20 21:00 06/19/20 20:18 I have reviewed the current psychotropics carefully including drug interactions. Risk benefit ratio favors no change other than as noted in my dictated progress note. Diagnosis: Problems: (1) Impulse control disorder, unspecified (2) Anxiety disorder, unspecified (3) Dementia, vascular, with depression (4) Dementia, vascular, with delusions (5) Dementia in Alzheimer's disease with depression (6) Dementia in Alzheimer's disease with delusions (7) Major neurocognitive disorder (8) Dementia associated with alcoholism with behavioral disturbance ARY PABLO MD Jun 19, 2020 21:35
--- NOTE | 2020-06-19 21:36 | PDOC ---
Exam Note: Srini Note: Please also refer to the separate dictated note~for this date of service dictated separately.~Patient seen individually. Discussed the patient with Nursing staff reviewed the chart.~Reviewed interim history and current functioning. Reviewed vital signs,~Labs/ Radiology~and current medications noted below. Continue current treatment with the changes noted in the dictated addendum note Assessment: Vital Signs/I&O: Vital Signs Date Time Temp Pulse Resp B/P (MAP) Pulse Ox O2 Delivery O2 Flow Rate FiO2 06/19/20 20:20 18 Room Air 06/19/20 20:18 111 152/82 06/19/20 16:24 97.6 100 I & O 06/18/20 06/18/20 06/19/20 15:00 23:00 07:00 Intake Total 480 ml 360 ml 120 ml Balance 480 ml 360 ml 120 ml Current Medications: Meds: Current Medications Medications (Trade) Dose Ordered Sig/Jasmeet Route PRN Reason Start Time Stop Time Status Last Admin Dose Admin Acetaminophen (Tylenol) 650 mg PRN Q4HRS PRN PO MILD PAIN / TEMP > 100.3'F 06/15/20 18:00 06/19/20 02:51 Amlodipine Besylate (Norvasc) 2.5 mg BID PO 06/15/20 21:00 06/19/20 20:18 Cetirizine HCl (ZyrTEC) 10 mg HS PO 06/15/20 21:00 06/19/20 20:18 Docusate Sodium (Colace) 100 mg PRN BID PRN PO CONSTIPATION 06/15/20 18:00 Multivit/Ca Carb/ B Cmplx/FA/Prenat (Nephro-Marilyn) 1 tab DAILY PO 06/16/20 09:00 06/19/20 09:00 Acetaminophen/ Hydrocodone Bitart (Lortab 7.5/325) 1 tab BID PO 06/15/20 21:00 06/19/20 20:20 Lorazepam (Ativan) 0.5 mg BID PO 06/15/20 21:00 06/19/20 20:19 Al Hydroxide/Mg Hydroxide (Mylanta Plus Xs) 30 ml PRN DAILY PRN PO DYSPEPSIA 06/15/20 18:00 06/19/20 04:40 Al Hydroxide/Mg Hydroxide (Mylanta Plus Xs) 355 ml DAILY PO 06/16/20 09:00 UNV Quetiapine Fumarate (SEROquel) 25 mg HS PO 06/15/20 21:00 06/16/20 16:15 DC 06/15/20 20:09 Thiamine HCl (Vitamin B-1) 100 mg BID PO 06/15/20 21:00 06/19/20 20:18 Trazodone HCl (Desyrel) 100 mg BID PO 06/15/20 21:00 06/19/20 20:18 Pantoprazole Sodium (Protonix) 40 mg DAILY PO 06/16/20 09:00 06/19/20 09:00 Olanzapine (ZyPREXA ZYDIS) 5 mg PRN Q2HR PRN PO PSYCHOSIS 06/15/20 18:00 06/19/20 00:22 Quetiapine Fumarate (SEROquel) 25 mg TIDAC PO 06/17/20 09:00 06/19/20 11:30 Mirtazapine (Remeron) 7.5 mg QHS PO 06/16/20 21:00 06/18/20 20:59 DC 06/17/20 18:34 Sertraline HCl (Zoloft) 25 mg DAILY PO 06/19/20 09:00 06/19/20 09:00 Mirtazapine (Remeron) 7.5 mg QHS PO 06/18/20 21:00 06/18/20 20:59 DC Mirtazapine (Remeron) 15 mg QHS PO 06/18/20 21:00 06/19/20 20:19 Divalproex Sodium (Depakote Sprinkles) 250 mg 0900,2100 PO 06/19/20 21:00 06/19/20 20:18 Current Medications Medications (Trade) Dose Ordered Sig/Jasmeet Route PRN Reason Start Time Stop Time Status Last Admin Dose Admin Sertraline HCl (Zoloft) 25 mg DAILY PO 06/19/20 09:00 06/19/20 09:00 Divalproex Sodium (Depakote Sprinkles) 250 mg 0900,2100 PO 06/19/20 21:00 06/19/20 20:18 I have reviewed the current psychotropics carefully including drug interactions. Risk benefit ratio favors no change other than as noted in my dictated progress note. Diagnosis: Problems: (1) Impulse control disorder, unspecified (2) Anxiety disorder, unspecified (3) Dementia, vascular, with depression (4) Dementia, vascular, with delusions (5) Dementia in Alzheimer's disease with depression (6) Dementia in Alzheimer's disease with delusions (7) Major neurocognitive disorder (8) Dementia associated with alcoholism with behavioral disturbance ARY PABLO MD Jun 19, 2020 21:36
--- NOTE | 2020-06-19 22:33 | NUR ---
Nursing Note The patient has been intrusive and repetitive this shift. The patient was intrusive with other patients r/t attempting to talk to this nurse while interacting with/assessing other patients. The patient was repetitive this shift r/t repeatedly asking for snacks and medications even after being provided with them. The patient was compliant with his medication and took them whole. The patient is currently in his room.
[2020-06-20] MEDS: MAG HYDROX/AL HYDROX/SIMETH 30 ML ORAL.SUSP PO PRN (00:32)
[2020-06-20 05:52] VITALS: BP 172/100
[2020-06-20] MEDS: QUEtiapine 25 MG TABLET. PO SCH ×4 (07:30→16:53)
--- NOTE | 2020-06-20 07:50 | PDOC ---
Exam Note: Srini Note: This note is a late entry for 06/19/2020 covers elements not covered in my initial note. Subjective: The patient was seen face to face in the evening of 06/19/2020 with Julia LY, discussed and reviewed the chart. The patient slept 1-1/2 hours previous night and we will increase the Remeron from 7.5 mg h.s. to 15 mg h.s. Overall he had pressure of speech and flight of ideas. He gets fixated on different things including discharge plans, wanting his belongings, unable to be redirected. Review of Systems: No CV, , pulmonary, eye system symptoms on review. Mental Status Exam: The patient is oriented to himself. Insight and judgment, recent and remote memory, attention and concentration, fund of knowledge is poor consistent with his diagnosis. Laboratory Data: Reviewed. Impression: Major neurocognitive disorder Alzheimer vascular with delusion, depression, behavioral disturbance. Anxiety disorder unspecified. Impulse control disorder unspecified. Plan: No change from initial note. Increase Remeron as above. Start Depakote Sprinkle 250 mg twice a day. Check CBC, CMP, valproic acid level in 3 days. Rest unchanged for now. Assessment: Vital Signs/I&O: Vital Signs Date Time Temp Pulse Resp B/P (MAP) Pulse Ox O2 Delivery O2 Flow Rate FiO2 06/20/20 05:52 98.8 104 24 172/100 (124) 99 06/19/20 21:42 Room Air I & O 06/19/20 06/19/20 06/20/20 14:59 22:59 06:59 Intake Total 840 ml 600 ml Balance 840 ml 600 ml Current Medications: Meds: Current Medications Medications (Trade) Dose Ordered Sig/Jasmeet Route PRN Reason Start Time Stop Time Status Last Admin Dose Admin Acetaminophen (Tylenol) 650 mg PRN Q4HRS PRN PO MILD PAIN / TEMP > 100.3'F 06/15/20 18:00 06/19/20 02:51 Amlodipine Besylate (Norvasc) 2.5 mg BID PO 06/15/20 21:00 06/19/20 20:18 Cetirizine HCl (ZyrTEC) 10 mg HS PO 06/15/20 21:00 06/19/20 20:18 Docusate Sodium (Colace) 100 mg PRN BID PRN PO CONSTIPATION 06/15/20 18:00 Multivit/Ca Carb/ B Cmplx/FA/Prenat (Nephro-Marilyn) 1 tab DAILY PO 06/16/20 09:00 06/19/20 09:00 Acetaminophen/ Hydrocodone Bitart (Lortab 7.5/325) 1 tab BID PO 06/15/20 21:00 06/19/20 20:20 Lorazepam (Ativan) 0.5 mg BID PO 06/15/20 21:00 06/19/20 20:19 Al Hydroxide/Mg Hydroxide (Mylanta Plus Xs) 30 ml PRN DAILY PRN PO DYSPEPSIA 06/15/20 18:00 06/20/20 00:32 Al Hydroxide/Mg Hydroxide (Mylanta Plus Xs) 355 ml DAILY PO 06/16/20 09:00 UNV Quetiapine Fumarate (SEROquel) 25 mg HS PO 06/15/20 21:00 06/16/20 16:15 DC 06/15/20 20:09 Thiamine HCl (Vitamin B-1) 100 mg BID PO 06/15/20 21:00 06/19/20 20:18 Trazodone HCl (Desyrel) 100 mg BID PO 06/15/20 21:00 06/19/20 20:18 Pantoprazole Sodium (Protonix) 40 mg DAILY PO 06/16/20 09:00 06/19/20 09:00 Olanzapine (ZyPREXA ZYDIS) 5 mg PRN Q2HR PRN PO PSYCHOSIS 06/15/20 18:00 06/19/20 00:22 Quetiapine Fumarate (SEROquel) 25 mg TIDAC PO 06/17/20 09:00 06/19/20 11:30 Mirtazapine (Remeron) 7.5 mg QHS PO 06/16/20 21:00 06/18/20 20:59 DC 06/17/20 18:34 Sertraline HCl (Zoloft) 25 mg DAILY PO 06/19/20 09:00 06/19/20 09:00 Mirtazapine (Remeron) 7.5 mg QHS PO 06/18/20 21:00 06/18/20 20:59 DC Mirtazapine (Remeron) 15 mg QHS PO 06/18/20 21:00 06/19/20 20:19 Divalproex Sodium (Depakote Sprinkles) 250 mg 0900,2100 PO 06/19/20 21:00 06/19/20 20:18 Current Medications Medications (Trade) Dose Ordered Sig/Jasmeet Route PRN Reason Start Time Stop Time Status Last Admin Dose Admin Sertraline HCl (Zoloft) 25 mg DAILY PO 06/19/20 09:00 06/19/20 09:00 Divalproex Sodium (Depakote Sprinkles) 250 mg 0900,2100 PO 06/19/20 21:00 06/19/20 20:18 I have reviewed the current psychotropics carefully including drug interactions. Risk benefit ratio favors no change other than as noted in my dictated progress note. Diagnosis: Problems: (1) Impulse control disorder, unspecified (2) Anxiety disorder, unspecified (3) Dementia, vascular, with depression (4) Dementia, vascular, with delusions (5) Dementia in Alzheimer's disease with depression (6) Dementia in Alzheimer's disease with delusions (7) Major neurocognitive disorder (8) Dementia associated with alcoholism with behavioral disturbance ARY PABLO MD Jun 20, 2020 07:50
[2020-06-20] MEDS: HYDROcodone/APAP 7.5/325MG 1 TAB TABLET PO SCH ×2 (08:02→19:53)
[2020-06-20] MEDS: amLODIPine BESYLATE 2.5 MG TABLET PO SCH ×2 (08:02→19:53)
[2020-06-20] MEDS: SERTRALINE 25 MG TABLET. PO SCH (08:02)
[2020-06-20] MEDS: traZODone 100 MG TABLET. PO SCH ×2 (08:02→19:52)
[2020-06-20] MEDS: LORazepam 0.5 MG TABLET PO SCH ×2 (08:02→19:51)
[2020-06-20] MEDS: PANTOPRAZOLE 40 MG TABLET. PO SCH (08:02)
[2020-06-20] MEDS: THIAMINE 100 MG TABLET. PO SCH ×2 (08:03→19:53)
[2020-06-20] MEDS: DIVALPROEX 125 MG CAP.SPRINK PO SCH ×2 (08:03→19:55)
[2020-06-20] MEDS: FOLIC/VIT B COMP W-C (RENAL) TABLET. PO SCH (08:03)
--- NOTE | 2020-06-20 12:49 | NUR ---
Pt remains very manic in speech and behaviors. He continues with pressured speech and dominating the conversation with others. He has continued to be hyperfixated on his personal belongings in the safe, as well as medications for indigestion. Attempts at explanation/redirection/distraction with pt have been unsuccessful, this is the 2nd day in a row that he attempts to revisit these particular topics to great length. He has participated in group activity with fellow pts and has been absent of verbal/physical inappropriateness in his interactions with them. He denies SI/HI/VH/AH. He is A&OX4. He has been appropriate and complaint with assessment and medication administration. Will pass on to the next shift.
[2020-06-20] MEDS ORDERED: MAG HYDROX/AL HYDROX/SIMETH 30 ML ORAL.SUSP PO ONE (16:00)
[2020-06-20 16:59] VITALS: BP 157/92
--- NOTE | 2020-06-20 18:37 | NUR ---
MATERIAL EXPEDITOR reports that when he went into pt's room to do housekeeping he found a metal fork and spoon. Pts on this unit are not given metal eating utensils (plastic only). However, there is one patient who is not at risk for HI/SI/aggression who is permitted metal utensils d/t difficulties with ROM and fine motor skills. It appears as if pt took the metal utensils from the other patient and hid them in his room. MATERIAL EXPEDITOR also found a tablet that he was unable to identify. This nurse observed it to be a Acetaminophen/Hydrocodone 325 mg / 7.5 mg tab. Pt is one of 3 pts who are currently on Acetaminophen/Hydrocodone. It is unknown if he obtained this medication from another patient, or if he is cheeking/saving his own medications. Will pass on to the next shift. Addendum: 06/20/20 at 1842 by NABIL STACK RN Medication wasted by this nurse and Trey LY
[2020-06-20] MEDS: MIRTAZAPINE 15 MG TABLET PO SCH (19:53)
[2020-06-20] MEDS: CETIRIZINE HCL 10 MG TABLET PO SCH (19:53)
--- NOTE | 2020-06-20 21:11 | PDOC ---
Exam Note: Srini Note: Please also refer to the separate dictated note~for this date of service dictated separately.~Patient seen individually. Discussed the patient with Nursing staff reviewed the chart.~Reviewed interim history and current functioning. Reviewed vital signs,~Labs/ Radiology~and current medications noted below. Continue current treatment with the changes noted in the dictated addendum note Assessment: Vital Signs/I&O: Vital Signs Date Time Temp Pulse Resp B/P (MAP) Pulse Ox O2 Delivery O2 Flow Rate FiO2 06/20/20 19:53 18 Room Air 06/20/20 19:53 72 157/92 06/20/20 16:59 98.1 95 I & O 06/19/20 06/19/20 06/20/20 14:59 22:59 06:59 Intake Total 840 ml 600 ml Balance 840 ml 600 ml Current Medications: Meds: Current Medications Medications (Trade) Dose Ordered Sig/Jasmeet Route PRN Reason Start Time Stop Time Status Last Admin Dose Admin Acetaminophen (Tylenol) 650 mg PRN Q4HRS PRN PO MILD PAIN / TEMP > 100.3'F 06/15/20 18:00 06/19/20 02:51 Amlodipine Besylate (Norvasc) 2.5 mg BID PO 06/15/20 21:00 06/20/20 19:53 Cetirizine HCl (ZyrTEC) 10 mg HS PO 06/15/20 21:00 06/20/20 19:53 Docusate Sodium (Colace) 100 mg PRN BID PRN PO CONSTIPATION 06/15/20 18:00 Multivit/Ca Carb/ B Cmplx/FA/Prenat (Nephro-Marilyn) 1 tab DAILY PO 06/16/20 09:00 06/20/20 08:03 Acetaminophen/ Hydrocodone Bitart (Lortab 7.5/325) 1 tab BID PO 06/15/20 21:00 06/20/20 19:53 Lorazepam (Ativan) 0.5 mg BID PO 06/15/20 21:00 06/20/20 19:51 Al Hydroxide/Mg Hydroxide (Mylanta Plus Xs) 30 ml PRN DAILY PRN PO DYSPEPSIA 06/15/20 18:00 06/20/20 00:32 Al Hydroxide/Mg Hydroxide (Mylanta Plus Xs) 355 ml DAILY PO 06/16/20 09:00 UNV Quetiapine Fumarate (SEROquel) 25 mg HS PO 06/15/20 21:00 06/16/20 16:15 DC 06/15/20 20:09 Thiamine HCl (Vitamin B-1) 100 mg BID PO 06/15/20 21:00 06/20/20 19:53 Trazodone HCl (Desyrel) 100 mg BID PO 06/15/20 21:00 06/20/20 19:52 Pantoprazole Sodium (Protonix) 40 mg DAILY PO 06/16/20 09:00 06/20/20 08:02 Olanzapine (ZyPREXA ZYDIS) 5 mg PRN Q2HR PRN PO PSYCHOSIS 06/15/20 18:00 06/19/20 00:22 Quetiapine Fumarate (SEROquel) 25 mg TIDAC PO 06/17/20 09:00 06/20/20 16:53 Mirtazapine (Remeron) 7.5 mg QHS PO 06/16/20 21:00 06/18/20 20:59 DC 06/17/20 18:34 Sertraline HCl (Zoloft) 25 mg DAILY PO 06/19/20 09:00 06/21/20 09:00 06/20/20 08:02 Mirtazapine (Remeron) 7.5 mg QHS PO 06/18/20 21:00 06/18/20 20:59 DC Mirtazapine (Remeron) 15 mg QHS PO 06/18/20 21:00 06/20/20 19:53 Divalproex Sodium (Depakote Sprinkles) 250 mg 0900,2100 PO 06/19/20 21:00 06/20/20 19:55 Al Hydroxide/Mg Hydroxide (Mylanta Plus Xs) 30 ml 1X ONCE PO 06/20/20 16:00 06/20/20 16:02 DC 06/20/20 16:00 Sertraline HCl (Zoloft) 50 mg DAILY PO 06/22/20 09:00 Melatonin (Melatonin) 3 mg PRN QHS PRN PO INSOMNIA 06/20/20 18:30 Current Medications Medications (Trade) Dose Ordered Sig/Jasmeet Route PRN Reason Start Time Stop Time Status Last Admin Dose Admin Al Hydroxide/Mg Hydroxide (Mylanta Plus Xs) 30 ml 1X ONCE PO 06/20/20 16:00 06/20/20 16:02 DC 06/20/20 16:00 I have reviewed the current psychotropics carefully including drug interactions. Risk benefit ratio favors no change other than as noted in my dictated progress note. Diagnosis: Problems: (1) Impulse control disorder, unspecified (2) Anxiety disorder, unspecified (3) Dementia, vascular, with depression (4) Dementia, vascular, with delusions (5) Dementia in Alzheimer's disease with depression (6) Dementia in Alzheimer's disease with delusions (7) Major neurocognitive disorder (8) Dementia associated with alcoholism with behavioral disturbance ARY PABLO MD Jun 20, 2020 21:11
[2020-06-21] MEDS: MAG HYDROX/AL HYDROX/SIMETH 30 ML ORAL.SUSP PO PRN (04:54)
--- NOTE | 2020-06-21 04:57 | NUR ---
Patient requested mylanta for upset stomach. PRN mylanta given per order for dyspepsia.
[2020-06-21 06:20] VITALS: BP 131/82
--- NOTE | 2020-06-21 06:31 | NUR ---
Nursing Note The patient was compliant with his medication this shift. The patient continues to talk about discharge while this nurse is attempting to assess him and give medication. The patient is difficult to assess due to constant speech. The patient discussed his prior abuse of alcohol with this nurse. The patient had a long conversation with his sister which seemed to go well. The patient wandered the halls while he was awake.
--- NOTE | 2020-06-21 08:11 | PDOC ---
Exam Note: Srini Note: This note is a late entry for 06/20/2020 covers elements not covered in my initial note. Subjective: The patient was seen face to face in the evening of 06/20/2020 with Julia LY, discussed and reviewed the chart. The patient slept 2-3/4 hours previous night. He continues to be confused, agitated, demanding, pressure of speech intrusive, somewhat domineering. He has been obsessed about wanting excessive amounts of Mylanta, seemed to urinate on the wall in the hallway. Review of Systems: No CV, , pulmonary, eye system symptoms on review. Mental Status Exam: The patient is oriented to himself and situation. Speech has some latency, coherent, rapid. Abstraction is fair. Computation is impaired. Language function is intact. Attention span is short. Mood and affect remains labile. Laboratory Data: Reviewed. Impression: Major neurocognitive disorder Alzheimer vascular with delusion, depression, behavioral disturbance. Anxiety disorder unspecified. Impulse control disorder unspecified. Plan: After he has been on Zoloft 25 mg a day for 3 days, we will increase to 50 mg a day. Add melatonin 3 mg h.s. for insomnia. Rest unchanged. Assessment: Vital Signs/I&O: Vital Signs Date Time Temp Pulse Resp B/P (MAP) Pulse Ox O2 Delivery O2 Flow Rate FiO2 06/21/20 06:20 98.6 94 22 131/82 (98) 96 06/20/20 20:53 Room Air I & O 06/20/20 06/20/20 06/21/20 15:00 23:00 07:00 Intake Total 240 ml 960 ml Balance 240 ml 960 ml Current Medications: Meds: Current Medications Medications (Trade) Dose Ordered Sig/Jasmeet Route PRN Reason Start Time Stop Time Status Last Admin Dose Admin Acetaminophen (Tylenol) 650 mg PRN Q4HRS PRN PO MILD PAIN / TEMP > 100.3'F 06/15/20 18:00 06/19/20 02:51 Amlodipine Besylate (Norvasc) 2.5 mg BID PO 06/15/20 21:00 06/20/20 19:53 Cetirizine HCl (ZyrTEC) 10 mg HS PO 06/15/20 21:00 06/20/20 19:53 Docusate Sodium (Colace) 100 mg PRN BID PRN PO CONSTIPATION 06/15/20 18:00 Multivit/Ca Carb/ B Cmplx/FA/Prenat (Nephro-Marilyn) 1 tab DAILY PO 06/16/20 09:00 06/20/20 08:03 Acetaminophen/ Hydrocodone Bitart (Lortab 7.5/325) 1 tab BID PO 06/15/20 21:00 06/20/20 19:53 Lorazepam (Ativan) 0.5 mg BID PO 06/15/20 21:00 06/20/20 19:51 Al Hydroxide/Mg Hydroxide (Mylanta Plus Xs) 30 ml PRN DAILY PRN PO DYSPEPSIA 06/15/20 18:00 06/21/20 04:54 Al Hydroxide/Mg Hydroxide (Mylanta Plus Xs) 355 ml DAILY PO 06/16/20 09:00 UNV Quetiapine Fumarate (SEROquel) 25 mg HS PO 06/15/20 21:00 06/16/20 16:15 DC 06/15/20 20:09 Thiamine HCl (Vitamin B-1) 100 mg BID PO 06/15/20 21:00 06/20/20 19:53 Trazodone HCl (Desyrel) 100 mg BID PO 06/15/20 21:00 06/20/20 19:52 Pantoprazole Sodium (Protonix) 40 mg DAILY PO 06/16/20 09:00 06/20/20 08:02 Olanzapine (ZyPREXA ZYDIS) 5 mg PRN Q2HR PRN PO PSYCHOSIS 06/15/20 18:00 06/19/20 00:22 Quetiapine Fumarate (SEROquel) 25 mg TIDAC PO 06/17/20 09:00 06/20/20 16:53 Mirtazapine (Remeron) 7.5 mg QHS PO 06/16/20 21:00 06/18/20 20:59 DC 06/17/20 18:34 Sertraline HCl (Zoloft) 25 mg DAILY PO 06/19/20 09:00 06/21/20 09:00 06/20/20 08:02 Mirtazapine (Remeron) 7.5 mg QHS PO 06/18/20 21:00 06/18/20 20:59 DC Mirtazapine (Remeron) 15 mg QHS PO 06/18/20 21:00 06/20/20 19:53 Divalproex Sodium (Depakote Sprinkles) 250 mg 0900,2100 PO 06/19/20 21:00 06/20/20 19:55 Al Hydroxide/Mg Hydroxide (Mylanta Plus Xs) 30 ml 1X ONCE PO 06/20/20 16:00 06/20/20 16:02 DC 06/20/20 16:00 Sertraline HCl (Zoloft) 50 mg DAILY PO 06/22/20 09:00 Melatonin (Melatonin) 3 mg PRN QHS PRN PO INSOMNIA 06/20/20 18:30 Current Medications Medications (Trade) Dose Ordered Sig/Jasmeet Route PRN Reason Start Time Stop Time Status Last Admin Dose Admin Al Hydroxide/Mg Hydroxide (Mylanta Plus Xs) 30 ml 1X ONCE PO 06/20/20 16:00 06/20/20 16:02 DC 06/20/20 16:00 I have reviewed the current psychotropics carefully including drug interactions. Risk benefit ratio favors no change other than as noted in my dictated progress note. Diagnosis: Problems: (1) Impulse control disorder, unspecified (2) Anxiety disorder, unspecified (3) Dementia, vascular, with depression (4) Dementia, vascular, with delusions (5) Dementia in Alzheimer's disease with depression (6) Dementia in Alzheimer's disease with delusions (7) Major neurocognitive disorder (8) Dementia associated with alcoholism with behavioral disturbance ARY PABLO MD Jun 21, 2020 08:11
[2020-06-21] MEDS: FOLIC/VIT B COMP W-C (RENAL) TABLET. PO SCH (09:00)
[2020-06-21] MEDS: amLODIPine BESYLATE 2.5 MG TABLET PO SCH ×2 (09:01→20:04)
[2020-06-21] MEDS: traZODone 100 MG TABLET. PO SCH ×2 (09:01→20:03)
[2020-06-21] MEDS: LORazepam 0.5 MG TABLET PO SCH ×2 (09:01→20:04)
[2020-06-21] MEDS: PANTOPRAZOLE 40 MG TABLET. PO SCH (09:01)
[2020-06-21] MEDS: HYDROcodone/APAP 7.5/325MG 1 TAB TABLET PO SCH ×2 (09:01→20:00)
[2020-06-21] MEDS: SERTRALINE 25 MG TABLET. PO SCH (09:01)
[2020-06-21] MEDS: DIVALPROEX 125 MG CAP.SPRINK PO SCH ×2 (09:01→20:03)
[2020-06-21] MEDS: QUEtiapine 25 MG TABLET. PO SCH ×3 (09:01→16:30)
[2020-06-21] MEDS: THIAMINE 100 MG TABLET. PO SCH ×2 (09:01→20:03)
--- NOTE | 2020-06-21 15:30 | NUR ---
GAVIN returned call to Aleena, bilingual patient support caseworker with [employer], to see if pt needs more behavioral health services at the time of discharge. GAVIN informed Aleena that pt is scheduled to discharge to a placement if one can be found. Aleena asked if the hospital has any DPOA paperwork that can be sent to [place] so they have it on file. GAVIN was also asked to email Aleena re: updates as GAVIN has them re: placement options at [email or web address]. Aleena can be reached at . It is noted that pt has a review due on 06/22/20 before noon.
--- NOTE | 2020-06-21 18:52 | NUR ---
Patient in room at time of assessment. Patient is cooperative and takes medications crushed with no problems. Patient has no complaints. No further concerns at this time.
[2020-06-21] MEDS: MIRTAZAPINE 15 MG TABLET PO SCH (20:03)
[2020-06-21] MEDS: MELATONIN 3 MG TABLET PO PRN (20:03)
[2020-06-21] MEDS: CETIRIZINE HCL 10 MG TABLET PO SCH (20:04)
--- NOTE | 2020-06-21 21:10 | PDOC ---
Exam Note: Srini Note: Please also refer to the separate dictated note~for this date of service dictated separately.~Patient seen individually. Discussed the patient with Nursing staff reviewed the chart.~Reviewed interim history and current functioning. Reviewed vital signs,~Labs/ Radiology~and current medications noted below. Continue current treatment with the changes noted in the dictated addendum note Assessment: Vital Signs/I&O: Vital Signs Date Time Temp Pulse Resp B/P (MAP) Pulse Ox O2 Delivery O2 Flow Rate FiO2 06/21/20 20:04 94 131/82 06/21/20 20:00 18 Room Air 06/21/20 06:20 98.6 96 I & O 06/20/20 06/20/20 06/21/20 15:00 23:00 07:00 Intake Total 240 ml 960 ml Balance 240 ml 960 ml Current Medications: Meds: Current Medications Medications (Trade) Dose Ordered Sig/Jasmeet Route PRN Reason Start Time Stop Time Status Last Admin Dose Admin Acetaminophen (Tylenol) 650 mg PRN Q4HRS PRN PO MILD PAIN / TEMP > 100.3'F 06/15/20 18:00 06/19/20 02:51 Amlodipine Besylate (Norvasc) 2.5 mg BID PO 06/15/20 21:00 06/21/20 20:04 Cetirizine HCl (ZyrTEC) 10 mg HS PO 06/15/20 21:00 06/21/20 20:04 Docusate Sodium (Colace) 100 mg PRN BID PRN PO CONSTIPATION 06/15/20 18:00 Multivit/Ca Carb/ B Cmplx/FA/Prenat (Nephro-Marilyn) 1 tab DAILY PO 06/16/20 09:00 06/21/20 09:00 Acetaminophen/ Hydrocodone Bitart (Lortab 7.5/325) 1 tab BID PO 06/15/20 21:00 06/21/20 20:00 Lorazepam (Ativan) 0.5 mg BID PO 06/15/20 21:00 06/21/20 20:04 Al Hydroxide/Mg Hydroxide (Mylanta Plus Xs) 30 ml PRN DAILY PRN PO DYSPEPSIA 06/15/20 18:00 06/21/20 04:54 Al Hydroxide/Mg Hydroxide (Mylanta Plus Xs) 355 ml DAILY PO 06/16/20 09:00 UNV Quetiapine Fumarate (SEROquel) 25 mg HS PO 06/15/20 21:00 06/16/20 16:15 DC 06/15/20 20:09 Thiamine HCl (Vitamin B-1) 100 mg BID PO 06/15/20 21:00 06/21/20 20:03 Trazodone HCl (Desyrel) 100 mg BID PO 06/15/20 21:00 06/21/20 20:03 Pantoprazole Sodium (Protonix) 40 mg DAILY PO 06/16/20 09:00 06/21/20 09:01 Olanzapine (ZyPREXA ZYDIS) 5 mg PRN Q2HR PRN PO PSYCHOSIS 06/15/20 18:00 06/21/20 20:03 Quetiapine Fumarate (SEROquel) 25 mg TIDAC PO 06/17/20 09:00 06/21/20 16:30 Mirtazapine (Remeron) 7.5 mg QHS PO 06/16/20 21:00 06/18/20 20:59 DC 06/17/20 18:34 Sertraline HCl (Zoloft) 25 mg DAILY PO 06/19/20 09:00 06/21/20 09:00 DC 06/21/20 09:01 Mirtazapine (Remeron) 7.5 mg QHS PO 06/18/20 21:00 06/18/20 20:59 DC Mirtazapine (Remeron) 15 mg QHS PO 06/18/20 21:00 06/21/20 20:03 Divalproex Sodium (Depakote Sprinkles) 250 mg 0900,2100 PO 06/19/20 21:00 06/21/20 20:03 Al Hydroxide/Mg Hydroxide (Mylanta Plus Xs) 30 ml 1X ONCE PO 06/20/20 16:00 06/20/20 16:02 DC 06/20/20 16:00 Sertraline HCl (Zoloft) 50 mg DAILY PO 06/22/20 09:00 Melatonin (Melatonin) 3 mg PRN QHS PRN PO INSOMNIA 06/20/20 18:30 06/21/20 20:03 I have reviewed the current psychotropics carefully including drug interactions. Risk benefit ratio favors no change other than as noted in my dictated progress note. Diagnosis: Problems: (1) Impulse control disorder, unspecified (2) Anxiety disorder, unspecified (3) Dementia, vascular, with depression (4) Dementia, vascular, with delusions (5) Dementia in Alzheimer's disease with depression (6) Dementia in Alzheimer's disease with delusions (7) Major neurocognitive disorder ARY PABLO MD Jun 21, 2020 21:10
[2020-06-22] MEDS: ACETAMINOPHEN 325 MG TABLET PO PRN ×2 (00:04→21:11)
--- NOTE | 2020-06-22 01:00 | NUR ---
Pt has been active on unit [employer]. He is hyperverbal and social with peers. He took meds whole with vanilla boost with minimal difficulty swallowing reported. He reports a history of esophageal narrowing and dysphagia saying the diameter of his esophagus is about that of a "toothpick", note that a speech therapy consult is pending. Awhile after going to bed he was given pain med which he had declined at HS and melatonin.
[2020-06-22] MEDS: MAG HYDROX/AL HYDROX/SIMETH 30 ML ORAL.SUSP PO PRN (03:54)
[2020-06-22 05:49] VITALS: BP 122/78
--- NOTE | 2020-06-22 05:57 | NUR ---
Nursing Note The patient was calm and compliant this shift. The patient took his medication whole and was pleasant during interactions with this nurse. The patient requested numerous food items throughout this shift. the patient interacted appropriately with peers this shift. the patient is currently sitting in the day room watching the news.
--- NOTE | 2020-06-22 07:37 | NUR ---
Late entry for 06/20/20: Around dinner time CNAs observed pt standing by the wall near the dining room, facing very close to it. They report to this nurse that his hands were down in close proximity to his genital area. When CNAs called out to pt he quickly walked away and they saw wet streaks on the wall where he was facing. CNAs question if he was urinating on the wall. This nurse contacted Security to conduct tape review of the hallway to confirm if he was in fact urinating however they were unable to clearly see pt on footage to confirm this.
[2020-06-22] MEDS: SERTRALINE 50 MG TABLET. PO SCH (08:29)
[2020-06-22] MEDS: LORazepam 0.5 MG TABLET PO SCH ×2 (08:29→21:11)
[2020-06-22] MEDS: HYDROcodone/APAP 7.5/325MG 1 TAB TABLET PO SCH ×3 (08:30→23:52)
[2020-06-22] MEDS: FOLIC/VIT B COMP W-C (RENAL) TABLET. PO SCH (08:30)
[2020-06-22] MEDS: PANTOPRAZOLE 40 MG TABLET. PO SCH (08:30)
[2020-06-22] MEDS: QUEtiapine 25 MG TABLET. PO SCH ×4 (08:30→17:10)
--- NOTE | 2020-06-22 08:30 | PDOC ---
Exam Note: Srini Note: This note is a late entry for 06/21/2020 covers elements not covered in my initial note. Subjective: The patient was seen face to face in the evening of 06/21/2020 with Eloina LY, discussed and reviewed the chart. The patient slept 3-1/2 hours previous night. He remains confused, anxious, restless. He was walking around with the Bible this evening as I met with him. Review of Systems: No CV, , pulmonary, eye system symptoms on review. Mental Status Exam: The patient is oriented to himself and situation. Speech is coherent, somewhat pressured at times. Abstraction is fair. Computation is impaired. Language function is intact. Mood and affect somewhat anxious, labile. Laboratory Data: Reviewed. Impression: Major neurocognitive disorder Alzheimer vascular with delusion, depression, behavioral disturbance. Anxiety disorder unspecified. Impulse control disorder unspecified. Plan: No change from initial note. We have added melatonin 3 mg h.s. for insomnia. She slept 3-1/2 hours previous night. Zoloft is increased to 50 mg a day. Assessment: Vital Signs/I&O: Vital Signs Date Time Temp Pulse Resp B/P (MAP) Pulse Ox O2 Delivery O2 Flow Rate FiO2 06/22/20 05:49 97.2 82 18 122/78 (93) 99 Room Air I & O 06/21/20 06/21/20 06/22/20 15:00 23:00 07:00 Intake Total 360 ml 200 ml 360 ml Balance 360 ml 200 ml 360 ml Current Medications: Meds: Current Medications Medications (Trade) Dose Ordered Sig/Jasmeet Route PRN Reason Start Time Stop Time Status Last Admin Dose Admin Acetaminophen (Tylenol) 650 mg PRN Q4HRS PRN PO MILD PAIN / TEMP > 100.3'F 06/15/20 18:00 06/22/20 00:04 Amlodipine Besylate (Norvasc) 2.5 mg BID PO 06/15/20 21:00 06/21/20 20:04 Cetirizine HCl (ZyrTEC) 10 mg HS PO 06/15/20 21:00 06/21/20 20:04 Docusate Sodium (Colace) 100 mg PRN BID PRN PO CONSTIPATION 06/15/20 18:00 Multivit/Ca Carb/ B Cmplx/FA/Prenat (Nephro-Marilyn) 1 tab DAILY PO 06/16/20 09:00 06/21/20 09:00 Acetaminophen/ Hydrocodone Bitart (Lortab 7.5/325) 1 tab BID PO 06/15/20 21:00 06/21/20 20:00 Lorazepam (Ativan) 0.5 mg BID PO 06/15/20 21:00 06/21/20 20:04 Al Hydroxide/Mg Hydroxide (Mylanta Plus Xs) 30 ml PRN DAILY PRN PO DYSPEPSIA 06/15/20 18:00 06/22/20 03:54 Al Hydroxide/Mg Hydroxide (Mylanta Plus Xs) 355 ml DAILY PO 06/16/20 09:00 UNV Quetiapine Fumarate (SEROquel) 25 mg HS PO 06/15/20 21:00 06/16/20 16:15 DC 06/15/20 20:09 Thiamine HCl (Vitamin B-1) 100 mg BID PO 06/15/20 21:00 06/21/20 20:03 Trazodone HCl (Desyrel) 100 mg BID PO 06/15/20 21:00 06/21/20 20:03 Pantoprazole Sodium (Protonix) 40 mg DAILY PO 06/16/20 09:00 06/21/20 09:01 Olanzapine (ZyPREXA ZYDIS) 5 mg PRN Q2HR PRN PO PSYCHOSIS 06/15/20 18:00 06/21/20 20:03 Quetiapine Fumarate (SEROquel) 25 mg TIDAC PO 06/17/20 09:00 06/21/20 16:30 Mirtazapine (Remeron) 7.5 mg QHS PO 06/16/20 21:00 06/18/20 20:59 DC 06/17/20 18:34 Sertraline HCl (Zoloft) 25 mg DAILY PO 06/19/20 09:00 06/21/20 09:00 DC 06/21/20 09:01 Mirtazapine (Remeron) 7.5 mg QHS PO 06/18/20 21:00 06/18/20 20:59 DC Mirtazapine (Remeron) 15 mg QHS PO 06/18/20 21:00 06/21/20 20:03 Divalproex Sodium (Depakote Sprinkles) 250 mg 0900,2100 PO 06/19/20 21:00 06/21/20 20:03 Al Hydroxide/Mg Hydroxide (Mylanta Plus Xs) 30 ml 1X ONCE PO 06/20/20 16:00 06/20/20 16:02 DC 06/20/20 16:00 Sertraline HCl (Zoloft) 50 mg DAILY PO 06/22/20 09:00 Melatonin (Melatonin) 3 mg PRN QHS PRN PO INSOMNIA 06/20/20 18:30 06/21/20 20:03 I have reviewed the current psychotropics carefully including drug interactions. Risk benefit ratio favors no change other than as noted in my dictated progress note. Diagnosis: Problems: (1) Impulse control disorder, unspecified (2) Anxiety disorder, unspecified (3) Dementia, vascular, with depression (4) Dementia, vascular, with delusions (5) Dementia in Alzheimer's disease with depression (6) Dementia in Alzheimer's disease with delusions (7) Major neurocognitive disorder (8) Dementia associated with alcoholism with behavioral disturbance ARY PABLO MD Jun 22, 2020 08:30
[2020-06-22] MEDS: amLODIPine BESYLATE 2.5 MG TABLET PO SCH ×2 (08:31→21:12)
[2020-06-22] MEDS: traZODone 100 MG TABLET. PO SCH ×2 (08:31→21:11)
[2020-06-22] MEDS: THIAMINE 100 MG TABLET. PO SCH ×2 (08:35→21:12)
[2020-06-22] MEDS: DIVALPROEX 125 MG CAP.SPRINK PO SCH ×2 (08:35→21:11)
--- NOTE | 2020-06-22 08:58 | NUR ---
Pt abrasive, demanding, and confrontational this morning. Upon entering with his morning medications he immediately said, "Where's my vanilla Ensure?! I know I talked to you about that this morning." Of note, he has not talked to this nurse at all this morning about an Ensure. PO medications administered whole, except for Trazodone, Seroquel, Ativan, and Lortab which were crushed and mixed into applesauce d/t concerns of pt holding onto medications and not taking them when administered. Pt took only one spoonful and became increasingly argumentative, stating he will not take medications crushed into applesauce. This nurse reinforced purpose of unit safety, informing him that staff discovered Lortab in his room that he apparently did not take when administered. Pt stopped and said, "If I knew you would find that in my room I would have just kept it in my pocket." This nurse reminded pt that the unit has patients who wander and are confused, and a patient could have taken the medication and become sick. This nurse also informed pt that by possibly saving and taking multiple doses of a medication he too could also become sick. 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 Pt became angry and said, "Well fine! Kick me out!" Pt then attempted to rationalize his inability to take medications crushed in applesauce, stating that he's had multiple surgeries on this throat d/t a narrow esophageal opening; and that taking medications in applesauce is physically difficult and causes choking. This nurse asked for clarification, "So you physically cannot swallow applesauce but you are able to swallow a whole tablet?" Pt then changed the complaint to dissatisfaction with taste. He would not take anymore of the applesauce with medications in it, and this nurse provided him with a vanilla Ensure.
--- NOTE | 2020-06-22 10:39 | NUR ---
While discussing pt's confrontational morning regarding his medications with GAVIN Garcia and DORIS Pina, GAVIN states that pt has no hx of esophageal surgery that is known to her. EHR/Chart review by this nurse revealed no esophageal surgery, only documented GI hx is GERD. Further discussion with GAVIN Garcia and DORIS Pina, LUMBER HACKER reports yesterday (06/21/20) that she observed pt attempt to tuck metal silverware assigned to another pt into his sleeve during mealtime which was intervened and halted by staff. LUMBER HACKER also reports pt going to the bathroom after medication administration and vomiting d/t what he claims is "allergies" and that staff is becoming increasingly concerned that he may be attempting to purge his medications up to hold onto and save. Possible interventions were discussed with GAVIN and DORIS, including continuing to crush his medications and mix with applesauce or having him sit by the nurse station for approx 30 minutes after medication administration to be observed by staff and he not be allowed to go to the bathroom to potentially purge. This nurse spoke directly with DORIS Pina and instructed her to write progress notes detailing any concerning or problematic behaviors performed by pt and to maintain open communication with nursing staff. DORIS verbalized understanding.
--- NOTE | 2020-06-22 14:01 | NUR ---
This nurse received a call from pt's sister, who requested that pt's once daily Mylanta be changed to TID. This nurse said I would have to discuss changing it with the Dr before any modifications can be made. Sister also discussed further pt's GI and dental hx, including needing his meat ground up for easier chewing. This nurse asked if pt has had any surgical hx with his esophagus and she replied that his esophagus had a procedure where it was "stretched out." When asked if he struggles with swallowing or will sometimes regurgitate food or medication she replied that he has. We discussed the concern of pt possibly holding onto medications/not taking them when administered, and the intervention of crushing them into applesauce which is he not pleased about. Sister stated that pt doesn't typically like applesauce and may be more receptive to pudding or vanilla Ensure.
--- NOTE | 2020-06-22 14:58 | NUR ---
Spoke with Dr Barth about pt's home Mylanta schedule being TID and reports from him and his sister concerning esophageal procedure hx with hx of difficulty swallowing and possible regurgitation of medications. Orders given: Mylanta 30 mL PO TID, ST consult. Order read back and verified.
[2020-06-22] MEDS: MAG HYDROX/AL HYDROX/SIMETH 30 ML ORAL.SUSP PO SCH ×2 (15:00→17:00)
[2020-06-22 15:37] VITALS: BP 115/72
--- NOTE | 2020-06-22 18:43 | NUR ---
Pt was discovered with cordless phone for patients in his pocket. When asked by a JAILER CHIEF, he denied it was a phone but it was discovered in fact to be one. This is not the first time staff has had difficulties with pt and the phone, one particular time he took the phone as another patient was talking to a loved one and hung up on the loved one so he could use it. JAILER CHIEF and this nurse attempted to discuss the phone with pt and to explain that there are 3 cordless phones for 13 patients, and after a phone call is completed the phone needs to be returned. In response pt became verbally aggressive, yelled, swore, accused staff of singling him out because of his race, postured. Among things yelled by pt include "Get off my case," "this ain't your business," "I'll find another way to call my sister," "this is because of the color of my skin," "back off, you can't handle a man like me in any way." Attempts to diffuse the situation were difficult d/t pt's inability to listen to staff. In the end pt walked away on his own volition and staff allowed him to d/t the tense situation for all involved.
--- NOTE | 2020-06-22 20:59 | PDOC ---
Exam Note: Srini Note: Please also refer to the separate dictated note~for this date of service dictated separately.~Patient seen individually. Discussed the patient with Nursing staff reviewed the chart.~Reviewed interim history and current functioning. Reviewed vital signs,~Labs/ Radiology~and current medications noted below. Continue current treatment with the changes noted in the dictated addendum note Assessment: Vital Signs/I&O: Vital Signs Date Time Temp Pulse Resp B/P (MAP) Pulse Ox O2 Delivery O2 Flow Rate FiO2 06/22/20 15:37 98.6 91 16 115/72 (86) 97 06/22/20 05:49 Room Air I & O 06/21/20 06/21/20 06/22/20 14:59 22:59 06:59 Intake Total 360 ml 200 ml 360 ml Balance 360 ml 200 ml 360 ml Current Medications: Meds: Current Medications Medications (Trade) Dose Ordered Sig/Jasmeet Route PRN Reason Start Time Stop Time Status Last Admin Dose Admin Acetaminophen (Tylenol) 650 mg PRN Q4HRS PRN PO MILD PAIN / TEMP > 100.3'F 06/15/20 18:00 06/22/20 00:04 Amlodipine Besylate (Norvasc) 2.5 mg BID PO 06/15/20 21:00 06/22/20 08:31 Cetirizine HCl (ZyrTEC) 10 mg HS PO 06/15/20 21:00 06/21/20 20:04 Docusate Sodium (Colace) 100 mg PRN BID PRN PO CONSTIPATION 06/15/20 18:00 Multivit/Ca Carb/ B Cmplx/FA/Prenat (Nephro-Marilyn) 1 tab DAILY PO 06/16/20 09:00 06/22/20 08:30 Acetaminophen/ Hydrocodone Bitart (Lortab 7.5/325) 1 tab BID PO 06/15/20 21:00 06/22/20 08:30 Lorazepam (Ativan) 0.5 mg BID PO 06/15/20 21:00 06/22/20 08:29 Al Hydroxide/Mg Hydroxide (Mylanta Plus Xs) 30 ml PRN DAILY PRN PO DYSPEPSIA 06/15/20 18:00 06/22/20 03:54 Al Hydroxide/Mg Hydroxide (Mylanta Plus Xs) 355 ml DAILY PO 06/16/20 09:00 UNV Quetiapine Fumarate (SEROquel) 25 mg HS PO 06/15/20 21:00 06/16/20 16:15 DC 06/15/20 20:09 Thiamine HCl (Vitamin B-1) 100 mg BID PO 06/15/20 21:00 06/22/20 08:35 Trazodone HCl (Desyrel) 100 mg BID PO 06/15/20 21:00 06/22/20 08:31 Pantoprazole Sodium (Protonix) 40 mg DAILY PO 06/16/20 09:00 06/22/20 08:30 Olanzapine (ZyPREXA ZYDIS) 5 mg PRN Q2HR PRN PO PSYCHOSIS 06/15/20 18:00 06/21/20 20:03 Quetiapine Fumarate (SEROquel) 25 mg TIDAC PO 06/17/20 09:00 06/22/20 17:10 Mirtazapine (Remeron) 7.5 mg QHS PO 06/16/20 21:00 06/18/20 20:59 DC 06/17/20 18:34 Sertraline HCl (Zoloft) 25 mg DAILY PO 06/19/20 09:00 06/21/20 09:00 DC 06/21/20 09:01 Mirtazapine (Remeron) 7.5 mg QHS PO 06/18/20 21:00 06/18/20 20:59 DC Mirtazapine (Remeron) 15 mg QHS PO 06/18/20 21:00 06/21/20 20:03 Divalproex Sodium (Depakote Sprinkles) 250 mg 0900,2100 PO 06/19/20 21:00 06/22/20 08:35 Al Hydroxide/Mg Hydroxide (Mylanta Plus Xs) 30 ml 1X ONCE PO 06/20/20 16:00 06/20/20 16:02 DC 06/20/20 16:00 Sertraline HCl (Zoloft) 50 mg DAILY PO 06/22/20 09:00 06/22/20 08:29 Melatonin (Melatonin) 3 mg PRN QHS PRN PO INSOMNIA 06/20/20 18:30 06/21/20 20:03 Al Hydroxide/Mg Hydroxide (Mylanta Plus Xs) 30 ml DAILY08 PO 06/23/20 08:00 06/22/20 14:58 DC Al Hydroxide/Mg Hydroxide (Mylanta Plus Xs) 30 ml 0800,1300,1700 PO 06/22/20 15:00 06/22/20 17:00 Current Medications Medications (Trade) Dose Ordered Sig/Jasmeet Route PRN Reason Start Time Stop Time Status Last Admin Dose Admin Sertraline HCl (Zoloft) 50 mg DAILY PO 06/22/20 09:00 06/22/20 08:29 Al Hydroxide/Mg Hydroxide (Mylanta Plus Xs) 30 ml 0800,1300,1700 PO 06/22/20 15:00 06/22/20 17:00 I have reviewed the current psychotropics carefully including drug interactions. Risk benefit ratio favors no change other than as noted in my dictated progress note. Diagnosis: Problems: (1) Impulse control disorder, unspecified (2) Anxiety disorder, unspecified (3) Dementia, vascular, with depression (4) Dementia, vascular, with delusions (5) Dementia in Alzheimer's disease with depression (6) Dementia in Alzheimer's disease with delusions (7) Major neurocognitive disorder (8) Dementia associated with alcoholism with behavioral disturbance ARY PABLO MD Jun 22, 2020 20:59
[2020-06-22] MEDS: MIRTAZAPINE 15 MG TABLET PO SCH (21:11)
[2020-06-22] MEDS: CETIRIZINE HCL 10 MG TABLET PO SCH (21:12)
[2020-06-22] MEDS: MELATONIN 3 MG TABLET PO PRN (23:52)
[2020-06-23 06:21] VITALS: BP 108/71
[2020-06-23] MEDS: DIVALPROEX 125 MG CAP.SPRINK PO SCH ×2 (07:54→20:51)
[2020-06-23] MEDS: HYDROcodone/APAP 7.5/325MG 1 TAB TABLET PO SCH ×2 (07:54→20:52)
[2020-06-23] MEDS: THIAMINE 100 MG TABLET. PO SCH ×2 (07:54→20:52)
[2020-06-23] MEDS: SERTRALINE 50 MG TABLET. PO SCH (07:54)
[2020-06-23] MEDS: QUEtiapine 25 MG TABLET. PO SCH ×3 (07:54→16:47)
[2020-06-23] MEDS: traZODone 100 MG TABLET. PO SCH ×2 (07:54→20:52)
--- NOTE | 2020-06-23 07:54 | PDOC ---
Exam Note: Srini Note: This note is a late entry for 06/22/2020 covers elements not covered in my initial note. Subjective: The patient was seen face to face in the evening of 06/22/2020 with Julia LY, discussed and reviewed the chart. The patient slept just 1-3/4 hours previous night. He has had pressure of speech, somewhat domineering, manic, and grandiose. A tablet of Lortab was found in his room and he has been trying to discard the medication. He is trying to vomit after meds to prevent taking them. Review of Systems: No CV, , pulmonary, eye, ENT system symptoms on review. Mental Status Exam: The patient is oriented to himself and situation. Insight and judgment, recent and remote memory, attention and concentration, fund of knowledge is poor consistent with his diagnosis. Laboratory Data: Reviewed. Impression: Major neurocognitive disorder Alzheimer vascular with delusion, depression, behavioral disturbance. Anxiety disorder unspecified. Impulse control disorder unspecified. Plan: No change from initial note. We have increased Zoloft. Started melatonin, adjusting the Depakote. We will adjust further as clinically indicated. Assessment: Vital Signs/I&O: Vital Signs Date Time Temp Pulse Resp B/P (MAP) Pulse Ox O2 Delivery O2 Flow Rate FiO2 06/23/20 06:21 97.8 85 18 108/71 (83) 98 06/23/20 01:00 Room Air I & O 06/22/20 06/22/20 06/23/20 14:59 22:59 06:59 Intake Total 580 ml 840 ml Balance 580 ml 840 ml Current Medications: Meds: Current Medications Medications (Trade) Dose Ordered Sig/Jasmeet Route PRN Reason Start Time Stop Time Status Last Admin Dose Admin Acetaminophen (Tylenol) 650 mg PRN Q4HRS PRN PO MILD PAIN / TEMP > 100.3'F 06/15/20 18:00 06/22/20 21:11 Amlodipine Besylate (Norvasc) 2.5 mg BID PO 06/15/20 21:00 06/22/20 21:12 Cetirizine HCl (ZyrTEC) 10 mg HS PO 06/15/20 21:00 06/22/20 21:12 Docusate Sodium (Colace) 100 mg PRN BID PRN PO CONSTIPATION 06/15/20 18:00 Multivit/Ca Carb/ B Cmplx/FA/Prenat (Nephro-Marilyn) 1 tab DAILY PO 06/16/20 09:00 06/22/20 08:30 Acetaminophen/ Hydrocodone Bitart (Lortab 7.5/325) 1 tab BID PO 06/15/20 21:00 06/22/20 23:52 Lorazepam (Ativan) 0.5 mg BID PO 06/15/20 21:00 06/22/20 21:11 Al Hydroxide/Mg Hydroxide (Mylanta Plus Xs) 30 ml PRN DAILY PRN PO DYSPEPSIA 06/15/20 18:00 06/22/20 03:54 Al Hydroxide/Mg Hydroxide (Mylanta Plus Xs) 355 ml DAILY PO 06/16/20 09:00 UNV Quetiapine Fumarate (SEROquel) 25 mg HS PO 06/15/20 21:00 06/16/20 16:15 DC 06/15/20 20:09 Thiamine HCl (Vitamin B-1) 100 mg BID PO 06/15/20 21:00 06/22/20 21:12 Trazodone HCl (Desyrel) 100 mg BID PO 06/15/20 21:00 06/22/20 21:11 Pantoprazole Sodium (Protonix) 40 mg DAILY PO 06/16/20 09:00 06/22/20 08:30 Olanzapine (ZyPREXA ZYDIS) 5 mg PRN Q2HR PRN PO PSYCHOSIS 06/15/20 18:00 06/21/20 20:03 Quetiapine Fumarate (SEROquel) 25 mg TIDAC PO 06/17/20 09:00 06/22/20 17:10 Mirtazapine (Remeron) 7.5 mg QHS PO 06/16/20 21:00 06/18/20 20:59 DC 06/17/20 18:34 Sertraline HCl (Zoloft) 25 mg DAILY PO 06/19/20 09:00 06/21/20 09:00 DC 06/21/20 09:01 Mirtazapine (Remeron) 7.5 mg QHS PO 06/18/20 21:00 06/18/20 20:59 DC Mirtazapine (Remeron) 15 mg QHS PO 06/18/20 21:00 06/22/20 21:11 Divalproex Sodium (Depakote Sprinkles) 250 mg 0900,2100 PO 06/19/20 21:00 06/22/20 21:11 Al Hydroxide/Mg Hydroxide (Mylanta Plus Xs) 30 ml 1X ONCE PO 06/20/20 16:00 06/20/20 16:02 DC 06/20/20 16:00 Sertraline HCl (Zoloft) 50 mg DAILY PO 06/22/20 09:00 06/22/20 08:29 Melatonin (Melatonin) 3 mg PRN QHS PRN PO INSOMNIA 06/20/20 18:30 06/22/20 23:52 Al Hydroxide/Mg Hydroxide (Mylanta Plus Xs) 30 ml DAILY08 PO 06/23/20 08:00 06/22/20 14:58 DC Al Hydroxide/Mg Hydroxide (Mylanta Plus Xs) 30 ml 0800,1300,1700 PO 06/22/20 15:00 06/22/20 17:00 Current Medications Medications (Trade) Dose Ordered Sig/Jasmeet Route PRN Reason Start Time Stop Time Status Last Admin Dose Admin Sertraline HCl (Zoloft) 50 mg DAILY PO 06/22/20 09:00 06/22/20 08:29 Al Hydroxide/Mg Hydroxide (Mylanta Plus Xs) 30 ml 0800,1300,1700 PO 06/22/20 15:00 06/22/20 17:00 I have reviewed the current psychotropics carefully including drug interactions. Risk benefit ratio favors no change other than as noted in my dictated progress note. Diagnosis: Problems: (1) Impulse control disorder, unspecified (2) Anxiety disorder, unspecified (3) Dementia, vascular, with depression (4) Dementia, vascular, with delusions (5) Dementia in Alzheimer's disease with depression (6) Dementia in Alzheimer's disease with delusions (7) Major neurocognitive disorder (8) Dementia associated with alcoholism with behavioral disturbance ARY PABLO MD Jun 23, 2020 07:54
[2020-06-23] MEDS: PANTOPRAZOLE 40 MG TABLET. PO SCH (07:55)
[2020-06-23] MEDS: FOLIC/VIT B COMP W-C (RENAL) TABLET. PO SCH (07:55)
[2020-06-23] MEDS: MAG HYDROX/AL HYDROX/SIMETH 30 ML ORAL.SUSP PO SCH ×3 (07:55→16:47)
[2020-06-23] MEDS: LORazepam 0.5 MG TABLET PO SCH ×2 (07:55→20:52)
[2020-06-23] MEDS: amLODIPine BESYLATE 2.5 MG TABLET PO SCH ×2 (07:55→20:51)
[2020-06-23] MEDS ORDERED: MAG HYDROX/AL HYDROX/SIMETH 30 ML ORAL.SUSP PO SCH (08:00)
[2020-06-23 08:35] LABS: BASO % 1 % (0-3); EOS # 0.2 x10^3/uL (0.0-0.7); EOS % 2 % (0-3); HEMATOCRIT 32.7 % (39.0-53.0); HEMOGLOBIN 10.4 g/dL (13.0-17.5); LYMPH # 1.5 x10^3/uL (1.0-4.8); LYMPH % 24 % (24-48); MEAN CORPUSCULAR HEMOGLOBIN 27 pg (25-35); MEAN CORPUSCULAR HGB CONC 32 g/dL (31-37); MEAN CORPUSCULAR VOLUME 86 fL (79-100); MONO # 0.7 x10^3/uL (0.0-1.1); MONO % 11 % (0-9); NEUT # 4.1 x10^3uL (1.8-7.7); NEUT % 62 % (31-73); PLATELET COUNT 339 x10^3/uL (140-400); RED BLOOD COUNT 3.82 x10^6/uL (4.30-5.70); RED CELL DISTRIBUTION WIDTH 14.9 % (11.5-14.5); WHITE BLOOD COUNT 6.5 x10^3/uL (4.0-11.0)
[2020-06-23 08:50] LABS: ALBUMIN 3.4 g/dL (3.4-5.0); ALBUMIN/GLOBULIN RATIO 0.8 (1.0-1.7); ALK PHOS 125 U/L (46-116); ALT (SGPT) 33 U/L (16-63); ANION GAP 5 (6-14); AST (SGOT) 19 U/L (15-37); BLOOD UREA NITROGEN 15 mg/dL (8-26); BUN/CREATININE RATIO 21 (6-20); CALCIUM 9.3 mg/dL (8.5-10.1); CARBON DIOXIDE 31 mmol/L (21-32); CHLORIDE 104 mmol/L (98-107); CREATININE 0.7 mg/dL (0.7-1.3); GFR 135.7; GLUCOSE 81 mg/dL (70-99); POTASSIUM 4.1 mmol/L (3.5-5.1); SODIUM 140 mmol/L (136-145); TOTAL BILIRUBIN 0.3 mg/dL (0.2-1.0); TOTAL PROTEIN 7.5 g/dL (6.4-8.2)
[2020-06-23 08:51] LABS: VAL ACID 52 mcg/mL (50-100)
--- NOTE | 2020-06-23 09:06 | NUR ---
Patient is calm and cooperative at this time. patient coughing up food during breakfast. Patient has a order for speech evaluation. patient has no further needs at this time.
--- NOTE | 2020-06-23 12:49 | NUR ---
Bedside Swallow Evaluation completed. Please refer to full report in intervention section for additional information. Impressions: Functional oropharyngeal swallow for modified diet r/t poor dentition. Pt reports hx consistent w/ esophageal dysphagia and EGD in past, and current complaints from patient as well as reports of swallow difficulty from staff are consistent w/ esophageal dysphagia. Would suggest GI referral at discharge location to further address esophageal concerns. Recommendations: Dyspahgia II diet (ground meat), thin liquids. General swallow precautions, esophageal precautions. GI referral when pt stable at discharge location. Results/recommendations D/w MALACHI Locke as well as if esophageal concerns continue or worsen that further downgrade of diet may be beneficial.
[2020-06-23 15:49] VITALS: BP 120/75
[2020-06-23] MEDS: MIRTAZAPINE 15 MG TABLET PO SCH (20:52)
[2020-06-23] MEDS: CETIRIZINE HCL 10 MG TABLET PO SCH (20:52)
--- NOTE | 2020-06-23 21:04 | PDOC ---
Exam Note: Srini Note: Please also refer to the separate dictated note~for this date of service dictated separately.~Patient seen individually. Discussed the patient with Nursing staff reviewed the chart.~Reviewed interim history and current functioning. Reviewed vital signs,~Labs/ Radiology~and current medications noted below. Continue current treatment with the changes noted in the dictated addendum note Assessment: Vital Signs/I&O: Vital Signs Date Time Temp Pulse Resp B/P (MAP) Pulse Ox O2 Delivery O2 Flow Rate FiO2 06/23/20 20:51 103 120/75 06/23/20 15:49 98.0 20 98 Room Air I & O 06/22/20 06/22/20 06/23/20 14:59 22:59 06:59 Intake Total 580 ml 840 ml Balance 580 ml 840 ml Labs: Laboratory Tests Test 06/23/20 08:07 White Blood Count 6.5 x10^3/uL (4.0-11.0) Red Blood Count 3.82 x10^6/uL (4.30-5.70) L Hemoglobin 10.4 g/dL (13.0-17.5) L Hematocrit 32.7 % (39.0-53.0) L Mean Corpuscular Volume 86 fL (79-100) Mean Corpuscular Hemoglobin 27 pg (25-35) Mean Corpuscular Hemoglobin Concent 32 g/dL (31-37) Red Cell Distribution Width 14.9 % (11.5-14.5) H Platelet Count 339 x10^3/uL (140-400) Neutrophils (%) (Auto) 62 % (31-73) Lymphocytes (%) (Auto) 24 % (24-48) Monocytes (%) (Auto) 11 % (0-9) H Eosinophils (%) (Auto) 2 % (0-3) Basophils (%) (Auto) 1 % (0-3) Neutrophils # (Auto) 4.1 x10^3uL (1.8-7.7) Lymphocytes # (Auto) 1.5 x10^3/uL (1.0-4.8) Monocytes # (Auto) 0.7 x10^3/uL (0.0-1.1) Eosinophils # (Auto) 0.2 x10^3/uL (0.0-0.7) Basophils # (Auto) 0.0 x10^3/uL (0.0-0.2) Sodium Level 140 mmol/L (136-145) Potassium Level 4.1 mmol/L (3.5-5.1) Chloride Level 104 mmol/L (98-107) Carbon Dioxide Level 31 mmol/L (21-32) Anion Gap 5 (6-14) L Blood Urea Nitrogen 15 mg/dL (8-26) Creatinine 0.7 mg/dL (0.7-1.3) Estimated GFR (Cockcroft-Gault) 135.7 BUN/Creatinine Ratio 21 (6-20) H Glucose Level 81 mg/dL (70-99) Calcium Level 9.3 mg/dL (8.5-10.1) Total Bilirubin 0.3 mg/dL (0.2-1.0) Aspartate Amino Transferase (AST) 19 U/L (15-37) Alanine Aminotransferase (ALT) 33 U/L (16-63) Alkaline Phosphatase 125 U/L (46-116) H Total Protein 7.5 g/dL (6.4-8.2) Albumin 3.4 g/dL (3.4-5.0) Albumin/Globulin Ratio 0.8 (1.0-1.7) L Valproic Acid Level 52 mcg/mL (50-100) Valproic Acid Last Dose Date 06/22/20 Valproic Acid Last Dose Time 2100 Current Medications: Meds: Laboratory Tests Test 06/23/20 08:07 White Blood Count 6.5 x10^3/uL Red Blood Count 3.82 x10^6/uL Hemoglobin 10.4 g/dL Hematocrit 32.7 % Mean Corpuscular Volume 86 fL Mean Corpuscular Hemoglobin 27 pg Mean Corpuscular Hemoglobin Concent 32 g/dL Red Cell Distribution Width 14.9 % Platelet Count 339 x10^3/uL Neutrophils (%) (Auto) 62 % Lymphocytes (%) (Auto) 24 % Monocytes (%) (Auto) 11 % Eosinophils (%) (Auto) 2 % Basophils (%) (Auto) 1 % Neutrophils # (Auto) 4.1 x10^3uL Lymphocytes # (Auto) 1.5 x10^3/uL Monocytes # (Auto) 0.7 x10^3/uL Eosinophils # (Auto) 0.2 x10^3/uL Basophils # (Auto) 0.0 x10^3/uL Sodium Level 140 mmol/L Potassium Level 4.1 mmol/L Chloride Level 104 mmol/L Carbon Dioxide Level 31 mmol/L Anion Gap 5 Blood Urea Nitrogen 15 mg/dL Creatinine 0.7 mg/dL Estimated GFR (Cockcroft-Gault) 135.7 BUN/Creatinine Ratio 21 Glucose Level 81 mg/dL Calcium Level 9.3 mg/dL Total Bilirubin 0.3 mg/dL Aspartate Amino Transf (AST/SGOT) 19 U/L Alanine Aminotransferase (ALT/SGPT) 33 U/L Alkaline Phosphatase 125 U/L Total Protein 7.5 g/dL Albumin 3.4 g/dL Albumin/Globulin Ratio 0.8 Valproic Acid (Depakene) Level 52 mcg/mL Valproic Acid Last Dose Date 06/22/20 Valproic Acid Last Dose Time 2100 Current Medications Medications (Trade) Dose Ordered Sig/Jasmeet Route PRN Reason Start Time Stop Time Status Last Admin Dose Admin Acetaminophen (Tylenol) 650 mg PRN Q4HRS PRN PO MILD PAIN / TEMP > 100.3'F 06/15/20 18:00 06/22/20 21:11 Amlodipine Besylate (Norvasc) 2.5 mg BID PO 06/15/20 21:00 06/23/20 20:51 Cetirizine HCl (ZyrTEC) 10 mg HS PO 06/15/20 21:00 06/23/20 20:52 Docusate Sodium (Colace) 100 mg PRN BID PRN PO CONSTIPATION 06/15/20 18:00 Multivit/Ca Carb/ B Cmplx/FA/Prenat (Nephro-Marilyn) 1 tab DAILY PO 06/16/20 09:00 06/23/20 07:55 Acetaminophen/ Hydrocodone Bitart (Lortab 7.5/325) 1 tab BID PO 06/15/20 21:00 06/23/20 20:52 Lorazepam (Ativan) 0.5 mg BID PO 06/15/20 21:00 06/23/20 20:52 Al Hydroxide/Mg Hydroxide (Mylanta Plus Xs) 30 ml PRN DAILY PRN PO DYSPEPSIA 06/15/20 18:00 06/22/20 03:54 Al Hydroxide/Mg Hydroxide (Mylanta Plus Xs) 355 ml DAILY PO 06/16/20 09:00 UNV Quetiapine Fumarate (SEROquel) 25 mg HS PO 06/15/20 21:00 06/16/20 16:15 DC 06/15/20 20:09 Thiamine HCl (Vitamin B-1) 100 mg BID PO 06/15/20 21:00 06/23/20 20:52 Trazodone HCl (Desyrel) 100 mg BID PO 06/15/20 21:00 06/23/20 17:55 DC 06/23/20 07:54 Pantoprazole Sodium (Protonix) 40 mg DAILY PO 06/16/20 09:00 06/23/20 07:55 Olanzapine (ZyPREXA ZYDIS) 5 mg PRN Q2HR PRN PO PSYCHOSIS 06/15/20 18:00 06/21/20 20:03 Quetiapine Fumarate (SEROquel) 25 mg TIDAC PO 06/17/20 09:00 06/23/20 16:47 Mirtazapine (Remeron) 7.5 mg QHS PO 06/16/20 21:00 06/18/20 20:59 DC 06/17/20 18:34 Sertraline HCl (Zoloft) 25 mg DAILY PO 06/19/20 09:00 06/21/20 09:00 DC 06/21/20 09:01 Mirtazapine (Remeron) 7.5 mg QHS PO 06/18/20 21:00 06/18/20 20:59 DC Mirtazapine (Remeron) 15 mg QHS PO 06/18/20 21:00 06/23/20 20:52 Divalproex Sodium (Depakote Sprinkles) 250 mg 0900,2100 PO 06/19/20 21:00 06/23/20 20:51 Al Hydroxide/Mg Hydroxide (Mylanta Plus Xs) 30 ml 1X ONCE PO 06/20/20 16:00 06/20/20 16:02 DC 06/20/20 16:00 Sertraline HCl (Zoloft) 50 mg DAILY PO 06/22/20 09:00 06/23/20 07:54 Melatonin (Melatonin) 3 mg PRN QHS PRN PO INSOMNIA 06/20/20 18:30 06/22/20 23:52 Al Hydroxide/Mg Hydroxide (Mylanta Plus Xs) 30 ml DAILY08 PO 06/23/20 08:00 06/22/20 14:58 DC Al Hydroxide/Mg Hydroxide (Mylanta Plus Xs) 30 ml 0800,1300,1700 PO 06/22/20 15:00 06/23/20 16:47 Trazodone HCl (Desyrel) 200 mg HS PO 06/23/20 21:00 06/23/20 20:52 Current Medications Medications (Trade) Dose Ordered Sig/Jasmeet Route PRN Reason Start Time Stop Time Status Last Admin Dose Admin Trazodone HCl (Desyrel) 200 mg HS PO 06/23/20 21:00 06/23/20 20:52 I have reviewed the current psychotropics carefully including drug interactions. Risk benefit ratio favors no change other than as noted in my dictated progress note. Diagnosis: Problems: (1) Impulse control disorder, unspecified (2) Anxiety disorder, unspecified (3) Dementia, vascular, with depression (4) Dementia, vascular, with delusions (5) Dementia in Alzheimer's disease with depression (6) Dementia in Alzheimer's disease with delusions (7) Major neurocognitive disorder (8) Dementia associated with alcoholism with behavioral disturbance ARY PABLO MD Jun 23, 2020 21:04
[2020-06-23] MEDS: MELATONIN 3 MG TABLET PO PRN (23:37)
[2020-06-23] MEDS: ACETAMINOPHEN 325 MG TABLET PO PRN (23:37)
[2020-06-24 05:40] VITALS: BP 160/90
[2020-06-24] MEDS: DIVALPROEX 125 MG CAP.SPRINK PO SCH ×2 (07:58→20:53)
[2020-06-24] MEDS: amLODIPine BESYLATE 2.5 MG TABLET PO SCH ×2 (07:58→20:53)
[2020-06-24] MEDS: MAG HYDROX/AL HYDROX/SIMETH 30 ML ORAL.SUSP PO SCH ×3 (07:58→17:21)
[2020-06-24] MEDS: THIAMINE 100 MG TABLET. PO SCH ×2 (07:59→20:53)
[2020-06-24] MEDS: HYDROcodone/APAP 7.5/325MG 1 TAB TABLET PO SCH ×2 (07:59→20:56)
[2020-06-24] MEDS: PANTOPRAZOLE 40 MG TABLET. PO SCH (07:59)
[2020-06-24] MEDS: SERTRALINE 50 MG TABLET. PO SCH (07:59)
[2020-06-24] MEDS: QUEtiapine 25 MG TABLET. PO SCH ×3 (07:59→20:56)
[2020-06-24] MEDS: LORazepam 0.5 MG TABLET PO SCH ×2 (07:59→20:56)
[2020-06-24] MEDS: FOLIC/VIT B COMP W-C (RENAL) TABLET. PO SCH (08:00)
--- NOTE | 2020-06-24 08:43 | NUR ---
Patient is calm and cooperative at this time. patient medication crushed after patient regurgitated them. Patient had no issues with eating his meal. Patient will be monitored during medication pass to insure he does not attempt to cough up medicine to hide in his room.
[2020-06-24 16:26] VITALS: BP 137/74
[2020-06-24] MEDS: MIRTAZAPINE 15 MG TABLET PO SCH (20:53)
[2020-06-24] MEDS: CETIRIZINE HCL 10 MG TABLET PO SCH (20:56)
[2020-06-24] MEDS: traZODone 100 MG TABLET. PO SCH (20:56)
[2020-06-24] MEDS: MAG HYDROX/AL HYDROX/SIMETH 30 ML ORAL.SUSP PO PRN (21:01)
--- NOTE | 2020-06-24 21:34 | PDOC ---
Exam Note: Srini Note: Please also refer to the separate dictated note~for this date of service dictated separately.~Patient seen individually. Discussed the patient with Nursing staff reviewed the chart.~Reviewed interim history and current functioning. Reviewed vital signs,~Labs/ Radiology~and current medications noted below. Continue current treatment with the changes noted in the dictated addendum note Assessment: Vital Signs/I&O: Vital Signs Date Time Temp Pulse Resp B/P (MAP) Pulse Ox O2 Delivery O2 Flow Rate FiO2 06/24/20 20:53 95 137/74 06/24/20 16:26 97.3 18 99 Room Air I & O 06/23/20 06/23/20 06/24/20 15:00 23:00 07:00 Intake Total 840 ml 840 ml Balance 840 ml 840 ml Current Medications: Meds: Current Medications Medications (Trade) Dose Ordered Sig/Jasmeet Route PRN Reason Start Time Stop Time Status Last Admin Dose Admin Quetiapine Fumarate (SEROquel) 75 mg QHS PO 06/24/20 21:00 06/24/20 20:56 I have reviewed the current psychotropics carefully including drug interactions. Risk benefit ratio favors no change other than as noted in my dictated progress note. Diagnosis: Problems: (1) Impulse control disorder, unspecified (2) Anxiety disorder, unspecified (3) Dementia, vascular, with depression (4) Dementia, vascular, with delusions (5) Dementia in Alzheimer's disease with depression (6) Dementia in Alzheimer's disease with delusions (7) Major neurocognitive disorder (8) Dementia associated with alcoholism with behavioral disturbance ARY PABLO MD Jun 24, 2020 21:34
--- NOTE | 2020-06-25 01:20 | NUR ---
Patient states he is having "trouble with his throat". Patient took medications two at a time. Nurse verified that patient had swallowed them. His mouth was clear and he ate a fig barron after his medications for HS snack. He was not asking for an endless amount of snacks tonight. Patient oriented only to self, he states it is "the " and he "is 81 years old". He is aware that he was at [facility] prior to coming here but does not know the reason. Patient is less attention seeking than last week but is still delusional, talking about the money he won playing the [employer] and carrying the small orange New Testament Bible with him in his pocket.
[2020-06-25 05:59] VITALS: BP 148/93
[2020-06-25] MEDS: MAG HYDROX/AL HYDROX/SIMETH 30 ML ORAL.SUSP PO SCH ×3 (08:00→17:00)
[2020-06-25] MEDS: QUEtiapine 25 MG TABLET. PO SCH ×2 (09:00→20:44)
[2020-06-25] MEDS: FOLIC/VIT B COMP W-C (RENAL) TABLET. PO SCH (09:00)
[2020-06-25] MEDS: amLODIPine BESYLATE 2.5 MG TABLET PO SCH ×2 (09:12→20:43)
[2020-06-25] MEDS: THIAMINE 100 MG TABLET. PO SCH ×2 (09:12→20:43)
[2020-06-25] MEDS: SERTRALINE 50 MG TABLET. PO SCH (09:12)
[2020-06-25] MEDS: PANTOPRAZOLE 40 MG TABLET. PO SCH (09:13)
[2020-06-25] MEDS: HYDROcodone/APAP 7.5/325MG 1 TAB TABLET PO SCH ×2 (09:13→20:46)
[2020-06-25] MEDS: LORazepam 0.5 MG TABLET PO SCH ×2 (09:13→20:46)
[2020-06-25] MEDS: DIVALPROEX 125 MG CAP.SPRINK PO SCH ×2 (09:13→20:43)
--- NOTE | 2020-06-25 11:09 | PN ---
DATE: 06/24/2020 PSYCHIATRIC PROGRESS NOTE This late entry 06/24 covers elements not covered in my initial note. SUBJECTIVE: I met with the patient evening of 06/24. Per MALACHI Locke, the patient slept 2-3/4 hours previous night. He gets tired after lunchtime trying to make up on his last sleep from night. He tends to cheek his medications, remains anxious, somewhat domineering, hyperverbal, fixated on discharge plans, confused, very poor insight into circumstances prompting admission. He takes his medications crushed. REVIEW OF SYSTEMS: No CV, , pulmonary, eye, ENT system symptoms on review. Reliability poor. MENTAL STATUS EXAM: Oriented to himself. Insight, judgment, recent and remote memory, attention, concentration, fund of knowledge poor, consistent with his diagnosis. IMPRESSION: Major neurocognitive disorder, multifactorial secondary to alcohol, possibly vascular with delusion, depression, behavioral disturbance; anxiety disorder, unspecified; impulse control disorder, unspecified. PLAN: I have carefully reviewed the patient's current psychotropics. He has been on Seroquel 25 mg 3 times a day. Given his daytime sedation, we will change it to 25 mg in the morning and 75 mg at night. Continue Depakote at current dosage, valproic acid level therapeutic at 52 on Depakote Sprinkles 250 mg a.m. and at bedtime. He remains on Ativan 0.5 mg b.i.d. and in due course, we will reduce this. Maintain trazodone 200 mg at bedtime, Remeron 15 mg at bedtime, Zoloft 50 mg a day, melatonin 3 mg at bedtime. MAN Matt PABLO MD DR: MARISELA/deejay JOB#: [id number] / [id number]
--- NOTE | 2020-06-25 14:21 | NUR ---
WEEKLY ACTIVITY THERAPY NOTE Date of Admission: 06/15/2020 Date of AT Assessment: 06/18 Precipitating behaviors that initiated intake and admission: agitation, paranoia Goal aimed: increase stress management and relaxation skills Initial Goal: Pt will participate in at least three Activity Therapy group sessions per week. Weekly progress towards goal: exceeded 01/04 Group participation level: 8 min, 1 mod Weekly highlights: around group often this week Behaviors observed: talkative/ hyperverbal which is often distracting and needs redirection, sleepy in groups, has Bible in hand usually Plan: Change goal to: Pt. will participate in at least one Activity Therapy group per day Beneficial adaptations: likes Breathing Buildings
[2020-06-25 15:39] VITALS: BP 132/76
--- NOTE | 2020-06-25 17:53 | NUR ---
Patient in room at time of assessment. Patient is alert and oriented to self and place. Patient is confused of time. He states it is 1982. He has no complaints and states he is doing well today. No behaviors noted today and no further concerns at this time.
[2020-06-25] MEDS: ACETAMINOPHEN 325 MG TABLET PO PRN (18:22)
--- NOTE | 2020-06-25 18:23 | NUR ---
Patient complaining of pain in both legs . Tylenol given to patient. Will get Pain meds this evening.
[2020-06-25] MEDS: traZODone 100 MG TABLET. PO SCH (20:43)
[2020-06-25] MEDS: MIRTAZAPINE 15 MG TABLET PO SCH (20:43)
[2020-06-25] MEDS: CETIRIZINE HCL 10 MG TABLET PO SCH (20:43)
[2020-06-25] MEDS: MAG HYDROX/AL HYDROX/SIMETH 30 ML ORAL.SUSP PO PRN (20:44)
--- NOTE | 2020-06-25 22:01 | PDOC ---
Exam Note: Srini Note: Please also refer to the separate dictated note~for this date of service dictated separately.~Patient seen individually. Discussed the patient with Nursing staff reviewed the chart.~Reviewed interim history and current functioning. Reviewed vital signs,~Labs/ Radiology~and current medications noted below. Continue current treatment with the changes noted in the dictated addendum note Assessment: Vital Signs/I&O: Vital Signs Date Time Temp Pulse Resp B/P (MAP) Pulse Ox O2 Delivery O2 Flow Rate FiO2 06/25/20 20:43 98 132/76 06/25/20 15:39 98.7 16 97 Room Air I & O 06/24/20 06/24/20 06/25/20 15:00 23:00 07:00 Intake Total 720 ml 960 ml Balance 720 ml 960 ml Current Medications: Meds: Current Medications Medications (Trade) Dose Ordered Sig/Jasmeet Route PRN Reason Start Time Stop Time Status Last Admin Dose Admin Quetiapine Fumarate (SEROquel) 25 mg DAILY PO 06/25/20 09:00 06/25/20 09:00 I have reviewed the current psychotropics carefully including drug interactions. Risk benefit ratio favors no change other than as noted in my dictated progress note. Diagnosis: Problems: (1) Impulse control disorder, unspecified (2) Anxiety disorder, unspecified (3) Dementia, vascular, with depression (4) Dementia, vascular, with delusions (5) Dementia in Alzheimer's disease with depression (6) Dementia in Alzheimer's disease with delusions (7) Major neurocognitive disorder (8) Dementia associated with alcoholism with behavioral disturbance ARY PABLO MD Jun 25, 2020 22:01
--- NOTE | 2020-06-26 00:19 | NUR ---
Patient has been cooperative and pleasant this shift. He is compliant with medications, preferring to have a snack after them. PRN mylanta provided per patients request for dyspepsia. Patient stated that he frequently gets dyspepsia because he "needs his throat stretched". Patient remains delusional and is talking about his winning lottery ticket that is in his bible.
--- NOTE | 2020-06-26 08:21 | PDOC ---
Exam Note: Srini Note: This note is a late entry for 06/23/2020 covers elements not covered in my initial note. Subjective: The patient was seen face to face in the evening of 06/23/2020 with Morales LY, discussed and reviewed the chart. The patient slept just 1-3/4 hours previous night. He is rambling in his speech, fixated on discharge. He followed me around the unit, wanting a discharge this evening. He was somewhat tired in the evening. Family called they were concerned that he was tired during the day but he doesnt sleep well at night and probably explains his tiredness. We will change the 100 mg b.i.d. to trazodone 200 mg h.s. to help with insomnia and diet has been changed to dysphagia three post-speech consult. He did eat dinner. Review of Systems: No CV, , pulmonary, eye, ENT system symptoms on review. Mental Status Exam: The patient is oriented to himself. Insight and judgment, recent and remote memory, attention and concentration, fund of knowledge is poor consistent with his diagnosis. Laboratory Data: Reviewed. Impression: Major neurocognitive disorder Alzheimer vascular with delusion, depression, behavioral disturbance. Anxiety disorder unspecified. Impulse control disorder unspecified. Plan: No change from initial note. Assessment: Vital Signs/I&O: Vital Signs Date Time Temp Pulse Resp B/P (MAP) Pulse Ox O2 Delivery O2 Flow Rate FiO2 06/25/20 20:43 98 132/76 06/25/20 15:39 98.7 16 97 Room Air I & O 06/25/20 06/25/20 06/26/20 14:59 22:59 06:59 Intake Total 960 ml 840 ml Balance 960 ml 840 ml Current Medications: Meds: Current Medications Medications (Trade) Dose Ordered Sig/Jasmeet Route PRN Reason Start Time Stop Time Status Last Admin Dose Admin Acetaminophen (Tylenol) 650 mg PRN Q4HRS PRN PO MILD PAIN / TEMP > 100.3'F 06/15/20 18:00 06/25/20 18:22 Amlodipine Besylate (Norvasc) 2.5 mg BID PO 06/15/20 21:00 06/25/20 20:43 Cetirizine HCl (ZyrTEC) 10 mg HS PO 06/15/20 21:00 06/25/20 20:43 Docusate Sodium (Colace) 100 mg PRN BID PRN PO CONSTIPATION 06/15/20 18:00 Multivit/Ca Carb/ B Cmplx/FA/Prenat (Nephro-Marilyn) 1 tab DAILY PO 06/16/20 09:00 06/25/20 09:00 Acetaminophen/ Hydrocodone Bitart (Lortab 7.5/325) 1 tab BID PO 06/15/20 21:00 06/25/20 20:46 Lorazepam (Ativan) 0.5 mg BID PO 06/15/20 21:00 06/25/20 20:46 Al Hydroxide/Mg Hydroxide (Mylanta Plus Xs) 30 ml PRN DAILY PRN PO DYSPEPSIA 06/15/20 18:00 06/25/20 20:44 Al Hydroxide/Mg Hydroxide (Mylanta Plus Xs) 355 ml DAILY PO 06/16/20 09:00 UNV Quetiapine Fumarate (SEROquel) 25 mg HS PO 06/15/20 21:00 06/16/20 16:15 DC 06/15/20 20:09 Thiamine HCl (Vitamin B-1) 100 mg BID PO 06/15/20 21:00 06/25/20 20:43 Trazodone HCl (Desyrel) 100 mg BID PO 06/15/20 21:00 06/23/20 17:55 DC 06/23/20 07:54 Pantoprazole Sodium (Protonix) 40 mg DAILY PO 06/16/20 09:00 06/25/20 09:13 Olanzapine (ZyPREXA ZYDIS) 5 mg PRN Q2HR PRN PO PSYCHOSIS 06/15/20 18:00 06/21/20 20:03 Quetiapine Fumarate (SEROquel) 25 mg TIDAC PO 06/17/20 09:00 06/24/20 14:08 DC 06/24/20 11:37 Mirtazapine (Remeron) 7.5 mg QHS PO 06/16/20 21:00 06/18/20 20:59 DC 06/17/20 18:34 Sertraline HCl (Zoloft) 25 mg DAILY PO 06/19/20 09:00 06/21/20 09:00 DC 06/21/20 09:01 Mirtazapine (Remeron) 7.5 mg QHS PO 06/18/20 21:00 06/18/20 20:59 DC Mirtazapine (Remeron) 15 mg QHS PO 06/18/20 21:00 06/25/20 20:43 Divalproex Sodium (Depakote Sprinkles) 250 mg 0900,2100 PO 06/19/20 21:00 06/25/20 20:43 Al Hydroxide/Mg Hydroxide (Mylanta Plus Xs) 30 ml 1X ONCE PO 06/20/20 16:00 06/20/20 16:02 DC 06/20/20 16:00 Sertraline HCl (Zoloft) 50 mg DAILY PO 06/22/20 09:00 06/25/20 09:12 Melatonin (Melatonin) 3 mg PRN QHS PRN PO INSOMNIA 06/20/20 18:30 06/23/20 23:37 Al Hydroxide/Mg Hydroxide (Mylanta Plus Xs) 30 ml DAILY08 PO 06/23/20 08:00 06/22/20 14:58 DC Al Hydroxide/Mg Hydroxide (Mylanta Plus Xs) 30 ml 0800,1300,1700 PO 06/22/20 15:00 06/25/20 17:00 Trazodone HCl (Desyrel) 200 mg HS PO 06/23/20 21:00 06/25/20 20:43 Quetiapine Fumarate (SEROquel) 25 mg DAILY PO 06/25/20 09:00 06/25/20 09:00 Quetiapine Fumarate (SEROquel) 75 mg QHS PO 06/24/20 21:00 06/25/20 20:44 Current Medications Medications (Trade) Dose Ordered Sig/Jasmeet Route PRN Reason Start Time Stop Time Status Last Admin Dose Admin Quetiapine Fumarate (SEROquel) 25 mg DAILY PO 06/25/20 09:00 06/25/20 09:00 I have reviewed the current psychotropics carefully including drug interactions. Risk benefit ratio favors no change other than as noted in my dictated progress note. Diagnosis: Problems: (1) Impulse control disorder, unspecified (2) Anxiety disorder, unspecified (3) Dementia, vascular, with depression (4) Dementia, vascular, with delusions (5) Dementia in Alzheimer's disease with depression (6) Dementia in Alzheimer's disease with delusions (7) Major neurocognitive disorder (8) Dementia associated with alcoholism with behavioral disturbance ARY PABLO MD Jun 26, 2020 08:21
[2020-06-26] MEDS: FOLIC/VIT B COMP W-C (RENAL) TABLET. PO SCH (09:00)
[2020-06-26] MEDS: MAG HYDROX/AL HYDROX/SIMETH 30 ML ORAL.SUSP PO SCH ×3 (09:36→17:52)
[2020-06-26] MEDS: DIVALPROEX 125 MG CAP.SPRINK PO SCH ×2 (09:36→21:26)
[2020-06-26] MEDS: QUEtiapine 25 MG TABLET. PO SCH ×2 (09:36→21:27)
[2020-06-26] MEDS: SERTRALINE 50 MG TABLET. PO SCH (09:36)
[2020-06-26] MEDS: PANTOPRAZOLE 40 MG TABLET. PO SCH (09:37)
[2020-06-26] MEDS: amLODIPine BESYLATE 2.5 MG TABLET PO SCH ×2 (09:37→21:27)
[2020-06-26] MEDS: THIAMINE 100 MG TABLET. PO SCH ×2 (09:37→21:27)
[2020-06-26] MEDS: LORazepam 0.5 MG TABLET PO SCH ×2 (09:39→21:29)
[2020-06-26] MEDS: HYDROcodone/APAP 7.5/325MG 1 TAB TABLET PO SCH ×2 (09:40→21:29)
[2020-06-26] MEDS: ACETAMINOPHEN 325 MG TABLET PO PRN ×2 (14:40→15:15)
--- NOTE | 2020-06-26 14:59 | NUR ---
Pt requested PRN medication for a headache. His assigned nurse (Charge Nurse Arabella) was unavailable at the time so this nurse attempted to administer PRN Acetaminophen 650 mg PO crushed and mixed into pudding. Upon seeing the pudding pt became argumentative and resistant to the medication, protesting and stating "the other nurse gave me my morning pills whole." This nurse verbalized understanding of what Charge Nurse may of done, but reiterated purpose of administering crushed medications d/t knowledge of him regurgitating medications and them being found in his room. Pt further attempted to debate that the discovery of medications in his room was "a long time ago." This nurse maintained the boundary and standards for medication safety, stating that staff needs to ensure that the medications can not only stay in him, but if they are regurgitated it is not whole where it could be held onto afterwords. Pt was not receptive and continued to attempt to argue and debate with this nurse, stating that a doctor told one of the nurses on [facility] that nursing staff did not need to crush his medications. At this point attempt at medication administration ceased. This nurse contacted GAVIN Garcia to update her concerning pt resistance to attempts at safe medication administration, and updated Charge Nurse Arabella on current pt status.
--- NOTE | 2020-06-26 15:30 | NUR ---
Nursing note: Pt has been pleasant and cooperative for most of the shift. He was able to take his medications whole this AM without any pocketing. He has spent time in the day room for groups and has been walking around the unit. Pt c/o headache earlier in afternoon and requested tylenol. While I was busy, another nurse offered him the tylenol crushed in pudding and refused. I asked pt about it later and he stated "Chocolate pudding is going to hurt my stomach. I can't eat anything red or chocolate." Pt was informed that this was the way it was being offered to him at the time, so he could take it or not. Pt was then agreeable to eating the bite of pudding with crushed tylenol mixed in. He is currently sitting quietly in the day room. Will continue to monitor.
[2020-06-26 15:49] VITALS: BP 133/80
--- NOTE | 2020-06-26 15:50 | NUR ---
GAVIN spoke with Chante at [facility], re: requesting an update on if they have made a decision on pt placement yet. Chante has not seen anything re: pt and GAVIN informed her that GAVIN emailed the referral to [facility] on . Chante took GAVIN information and would plan to get with [facility] tomorrow and have the team look over the packet.
--- NOTE | 2020-06-26 16:00 | NUR ---
GAVIN received a call from Ruth, pt DPOA/sister, who wanted to follow up and see if [facility] has made a decision yet. GAVIN informed pt sister that the referral was sent over on ; however, before returning her call, GAVIN contacted the facility and was told that the admissions office knew nothing about the referral and would have to talk to the forest supervisor. GAVIN will follow up with the facility and get back to Ruth re: their decision. GAVIN also questioned Ruth about how she gives pt his medications. With pt having throat trouble, Ruth reports that she cuts pt meds up and give them to him in his Boost. GAVIN explained the concerns of pt being inconsistent with his medications as when they are crushed he does fine; but when they are not, he tends to throw them back up. For facilities, this will not be acceptable. Pt sister agreed that pt needs them crushed and she will talk to pt about this so he understands that he needs to take his medications in this fashion.
[2020-06-26] MEDS ORDERED: AMITRIPTYLINE HCL 25 MG TABLET PO SCH (21:00)
--- NOTE | 2020-06-26 21:23 | PDOC ---
Exam Note: Srini Note: Please also refer to the separate dictated note~for this date of service dictated separately.~Patient seen individually. Discussed the patient with Nursing staff reviewed the chart.~Reviewed interim history and current functioning. Reviewed vital signs,~Labs/ Radiology~and current medications noted below. Continue current treatment with the changes noted in the dictated addendum note Assessment: Vital Signs/I&O: Vital Signs Date Time Temp Pulse Resp B/P (MAP) Pulse Ox O2 Delivery O2 Flow Rate FiO2 06/26/20 15:49 98.0 93 16 133/80 (97) 100 06/25/20 15:39 Room Air I & O 06/25/20 06/25/20 06/26/20 15:00 23:00 07:00 Intake Total 960 ml 840 ml Balance 960 ml 840 ml Current Medications: Meds: Current Medications Medications (Trade) Dose Ordered Sig/Jasmeet Route PRN Reason Start Time Stop Time Status Last Admin Dose Admin Acetaminophen (Tylenol) 650 mg PRN Q4HRS PRN PO MILD PAIN / TEMP > 100.3'F 06/15/20 18:00 06/26/20 15:15 Amlodipine Besylate (Norvasc) 2.5 mg BID PO 06/15/20 21:00 06/26/20 09:37 Cetirizine HCl (ZyrTEC) 10 mg HS PO 06/15/20 21:00 06/25/20 20:43 Docusate Sodium (Colace) 100 mg PRN BID PRN PO CONSTIPATION 06/15/20 18:00 Multivit/Ca Carb/ B Cmplx/FA/Prenat (Nephro-Marilyn) 1 tab DAILY PO 06/16/20 09:00 06/26/20 09:00 Acetaminophen/ Hydrocodone Bitart (Lortab 7.5/325) 1 tab BID PO 06/15/20 21:00 06/26/20 09:40 Lorazepam (Ativan) 0.5 mg BID PO 06/15/20 21:00 06/26/20 18:20 DC 06/26/20 09:39 Al Hydroxide/Mg Hydroxide (Mylanta Plus Xs) 30 ml PRN DAILY PRN PO DYSPEPSIA 06/15/20 18:00 06/25/20 20:44 Al Hydroxide/Mg Hydroxide (Mylanta Plus Xs) 355 ml DAILY PO 06/16/20 09:00 UNV Quetiapine Fumarate (SEROquel) 25 mg HS PO 06/15/20 21:00 06/16/20 16:15 DC 06/15/20 20:09 Thiamine HCl (Vitamin B-1) 100 mg BID PO 06/15/20 21:00 06/26/20 09:37 Trazodone HCl (Desyrel) 100 mg BID PO 06/15/20 21:00 06/23/20 17:55 DC 06/23/20 07:54 Pantoprazole Sodium (Protonix) 40 mg DAILY PO 06/16/20 09:00 06/26/20 09:37 Olanzapine (ZyPREXA ZYDIS) 5 mg PRN Q2HR PRN PO PSYCHOSIS 06/15/20 18:00 06/21/20 20:03 Quetiapine Fumarate (SEROquel) 25 mg TIDAC PO 06/17/20 09:00 06/24/20 14:08 DC 06/24/20 11:37 Mirtazapine (Remeron) 7.5 mg QHS PO 06/16/20 21:00 06/18/20 20:59 DC 06/17/20 18:34 Sertraline HCl (Zoloft) 25 mg DAILY PO 06/19/20 09:00 06/21/20 09:00 DC 06/21/20 09:01 Mirtazapine (Remeron) 7.5 mg QHS PO 06/18/20 21:00 06/18/20 20:59 DC Mirtazapine (Remeron) 15 mg QHS PO 06/18/20 21:00 06/26/20 18:20 DC 06/25/20 20:43 Divalproex Sodium (Depakote Sprinkles) 250 mg 0900,2100 PO 06/19/20 21:00 06/26/20 09:36 Al Hydroxide/Mg Hydroxide (Mylanta Plus Xs) 30 ml 1X ONCE PO 06/20/20 16:00 06/20/20 16:02 DC 06/20/20 16:00 Sertraline HCl (Zoloft) 50 mg DAILY PO 06/22/20 09:00 06/26/20 09:36 Melatonin (Melatonin) 3 mg PRN QHS PRN PO INSOMNIA 06/20/20 18:30 06/23/20 23:37 Al Hydroxide/Mg Hydroxide (Mylanta Plus Xs) 30 ml DAILY08 PO 06/23/20 08:00 06/22/20 14:58 DC Al Hydroxide/Mg Hydroxide (Mylanta Plus Xs) 30 ml 0800,1300,1700 PO 06/22/20 15:00 06/26/20 17:52 Trazodone HCl (Desyrel) 200 mg HS PO 06/23/20 21:00 06/25/20 20:43 Quetiapine Fumarate (SEROquel) 25 mg DAILY PO 06/25/20 09:00 06/26/20 09:36 Quetiapine Fumarate (SEROquel) 75 mg QHS PO 06/24/20 21:00 06/25/20 20:44 Lorazepam (Ativan) 0.5 mg QHS PO 06/26/20 21:00 Amitriptyline HCl (Elavil) 25 mg QHS PO 06/26/20 21:00 I have reviewed the current psychotropics carefully including drug interactions. Risk benefit ratio favors no change other than as noted in my dictated progress note. Diagnosis: Problems: (1) Impulse control disorder, unspecified (2) Anxiety disorder, unspecified (3) Dementia, vascular, with depression (4) Dementia, vascular, with delusions (5) Dementia in Alzheimer's disease with depression (6) Dementia in Alzheimer's disease with delusions (7) Major neurocognitive disorder (8) Dementia associated with alcoholism with behavioral disturbance ARY PABLO MD Jun 26, 2020 21:23
[2020-06-26] MEDS: traZODone 100 MG TABLET. PO SCH (21:27)
[2020-06-26] MEDS: CETIRIZINE HCL 10 MG TABLET PO SCH (21:27)
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
[2020-06-27] MEDS: HYDROcodone/APAP 7.5/325MG 1 TAB TABLET PO SCH ×3 (02:38→21:15)
[2020-06-27 06:18] VITALS: BP 131/78
[2020-06-27] MEDS: QUEtiapine 25 MG TABLET. PO SCH ×2 (08:19→21:12)
[2020-06-27] MEDS: MAG HYDROX/AL HYDROX/SIMETH 30 ML ORAL.SUSP PO SCH ×3 (08:19→17:41)
[2020-06-27] MEDS: DIVALPROEX 125 MG CAP.SPRINK PO SCH ×2 (08:19→21:12)
[2020-06-27] MEDS: PANTOPRAZOLE 40 MG TABLET. PO SCH (08:19)
[2020-06-27] MEDS: amLODIPine BESYLATE 2.5 MG TABLET PO SCH ×2 (08:19→21:13)
[2020-06-27] MEDS: THIAMINE 100 MG TABLET. PO SCH ×2 (08:19→21:12)
[2020-06-27] MEDS: SERTRALINE 50 MG TABLET. PO SCH (08:19)
[2020-06-27] MEDS: FOLIC/VIT B COMP W-C (RENAL) TABLET. PO SCH (08:20)
--- NOTE | 2020-06-27 08:34 | PDOC ---
Exam Note: Srini Note: This note is a late entry for 06/25/2020 covers elements not covered in my initial note. Subjective: The patient was seen face to face in the morning of 06/25/2020 for a treatment team meeting with Haylie Yoo, Cassie Vazquez and Judy (social and human services assistant), Krysten Schroeder, activity therapy and Eloina LY, discussed and reviewed the chart. The patient slept 3 hours previous night. He takes meds crushed and ground meat. He may be accepted at [facility] but he is confused, felt the years was 1979. Review of Systems: No CV, , pulmonary, eye, ENT system symptoms on review. Mental Status Exam: The patient is oriented to himself. Insight and judgment, recent and remote memory, attention and concentration, fund of knowledge is poor consistent with his diagnosis. Laboratory Data: Reviewed. Impression: Major neurocognitive disorder Alzheimer vascular with delusion, depression, behavioral disturbance. Anxiety disorder unspecified. Impulse control disorder unspecified. Plan: No change from initial note. Assessment: Vital Signs/I&O: Vital Signs Date Time Temp Pulse Resp B/P (MAP) Pulse Ox O2 Delivery O2 Flow Rate FiO2 06/27/20 08:31 99 06/27/20 08:19 91 131/78 06/27/20 06:18 97.8 18 06/25/20 15:39 Room Air I & O 06/26/20 06/26/20 06/27/20 15:00 23:00 07:00 Intake Total 960 ml 840 ml Balance 960 ml 840 ml Current Medications: Meds: Current Medications Medications (Trade) Dose Ordered Sig/Jasmeet Route PRN Reason Start Time Stop Time Status Last Admin Dose Admin Acetaminophen (Tylenol) 650 mg PRN Q4HRS PRN PO MILD PAIN / TEMP > 100.3'F 06/15/20 18:00 06/26/20 15:15 Amlodipine Besylate (Norvasc) 2.5 mg BID PO 06/15/20 21:00 06/27/20 08:19 Cetirizine HCl (ZyrTEC) 10 mg HS PO 06/15/20 21:00 06/26/20 21:27 Docusate Sodium (Colace) 100 mg PRN BID PRN PO CONSTIPATION 06/15/20 18:00 Multivit/Ca Carb/ B Cmplx/FA/Prenat (Nephro-Marilyn) 1 tab DAILY PO 06/16/20 09:00 06/27/20 08:20 Acetaminophen/ Hydrocodone Bitart (Lortab 7.5/325) 1 tab BID PO 06/15/20 21:00 06/27/20 08:31 Lorazepam (Ativan) 0.5 mg BID PO 06/15/20 21:00 06/26/20 18:20 DC 06/26/20 09:39 Al Hydroxide/Mg Hydroxide (Mylanta Plus Xs) 30 ml PRN DAILY PRN PO DYSPEPSIA 06/15/20 18:00 06/25/20 20:44 Al Hydroxide/Mg Hydroxide (Mylanta Plus Xs) 355 ml DAILY PO 06/16/20 09:00 UNV Quetiapine Fumarate (SEROquel) 25 mg HS PO 06/15/20 21:00 06/16/20 16:15 DC 06/15/20 20:09 Thiamine HCl (Vitamin B-1) 100 mg BID PO 06/15/20 21:00 06/27/20 08:19 Trazodone HCl (Desyrel) 100 mg BID PO 06/15/20 21:00 06/23/20 17:55 DC 06/23/20 07:54 Pantoprazole Sodium (Protonix) 40 mg DAILY PO 06/16/20 09:00 06/27/20 08:19 Olanzapine (ZyPREXA ZYDIS) 5 mg PRN Q2HR PRN PO PSYCHOSIS 06/15/20 18:00 06/21/20 20:03 Quetiapine Fumarate (SEROquel) 25 mg TIDAC PO 06/17/20 09:00 06/24/20 14:08 DC 06/24/20 11:37 Mirtazapine (Remeron) 7.5 mg QHS PO 06/16/20 21:00 06/18/20 20:59 DC 06/17/20 18:34 Sertraline HCl (Zoloft) 25 mg DAILY PO 06/19/20 09:00 06/21/20 09:00 DC 06/21/20 09:01 Mirtazapine (Remeron) 7.5 mg QHS PO 06/18/20 21:00 06/18/20 20:59 DC Mirtazapine (Remeron) 15 mg QHS PO 06/18/20 21:00 06/26/20 18:20 DC 06/25/20 20:43 Divalproex Sodium (Depakote Sprinkles) 250 mg 0900,2100 PO 06/19/20 21:00 06/27/20 08:19 Al Hydroxide/Mg Hydroxide (Mylanta Plus Xs) 30 ml 1X ONCE PO 06/20/20 16:00 06/20/20 16:02 DC 06/20/20 16:00 Sertraline HCl (Zoloft) 50 mg DAILY PO 06/22/20 09:00 06/27/20 08:19 Melatonin (Melatonin) 3 mg PRN QHS PRN PO INSOMNIA 06/20/20 18:30 06/23/20 23:37 Al Hydroxide/Mg Hydroxide (Mylanta Plus Xs) 30 ml DAILY08 PO 06/23/20 08:00 06/22/20 14:58 DC Al Hydroxide/Mg Hydroxide (Mylanta Plus Xs) 30 ml 0800,1300,1700 PO 06/22/20 15:00 06/27/20 08:19 Trazodone HCl (Desyrel) 200 mg HS PO 06/23/20 21:00 06/26/20 21:27 Quetiapine Fumarate (SEROquel) 25 mg DAILY PO 06/25/20 09:00 06/27/20 08:19 Quetiapine Fumarate (SEROquel) 75 mg QHS PO 06/24/20 21:00 06/26/20 21:27 Lorazepam (Ativan) 0.5 mg QHS PO 06/26/20 21:00 06/26/20 21:29 Amitriptyline HCl (Elavil) 25 mg QHS PO 06/26/20 21:00 06/26/20 21:29 Current Medications Medications (Trade) Dose Ordered Sig/Jasmeet Route PRN Reason Start Time Stop Time Status Last Admin Dose Admin Lorazepam (Ativan) 0.5 mg QHS PO 06/26/20 21:00 06/26/20 21:29 Amitriptyline HCl (Elavil) 25 mg QHS PO 06/26/20 21:00 06/26/20 21:29 I have reviewed the current psychotropics carefully including drug interactions. Risk benefit ratio favors no change other than as noted in my dictated progress note. Diagnosis: Problems: (1) Impulse control disorder, unspecified (2) Anxiety disorder, unspecified (3) Dementia, vascular, with depression (4) Dementia, vascular, with delusions (5) Dementia in Alzheimer's disease with depression (6) Dementia in Alzheimer's disease with delusions (7) Major neurocognitive disorder (8) Dementia associated with alcoholism with behavioral disturbance ARY PABLO MD Jun 27, 2020 08:34
--- NOTE | 2020-06-27 09:02 | PDOC ---
Exam Note: Srini Note: This note is a late entry for 06/26/2020 covers elements not covered in my initial note. Subjective: The patient was seen face to face in the evening of 06/26/2020 with Maria Victoria LY, discussed and reviewed the chart. The patient slept just 1-3/4 hours previous night. Previous evening he was delusional, believed he won the lottery. Nursing staff needed to take him to get the money. Review of Systems: No CV, , pulmonary, eye, ENT system symptoms on review. Mental Status Exam: The patient is oriented to himself. Insight and judgment, recent and remote memory, attention and concentration, fund of knowledge is poor consistent with his diagnosis. Laboratory Data: Reviewed. Impression: Major neurocognitive disorder Alzheimer vascular with delusion, depression, behavioral disturbance. Anxiety disorder unspecified. Impulse control disorder unspecified. Plan: We will go ahead and reduce the Ativan from 0.5 mg b.i.d. to 0.5 mg a day since this could be disinhibiting him. Change the Remeron 15 mg h.s. to Elavil 25 mg h.s. since he slept just 1-3/4 hours again previous night on the Remeron. Continue rest of the psychotropics unchanged. Assessment: Vital Signs/I&O: Vital Signs Date Time Temp Pulse Resp B/P (MAP) Pulse Ox O2 Delivery O2 Flow Rate FiO2 06/27/20 08:31 99 06/27/20 08:19 91 131/78 06/27/20 06:18 97.8 18 06/25/20 15:39 Room Air I & O 06/26/20 06/26/20 06/27/20 15:00 23:00 07:00 Intake Total 960 ml 840 ml Balance 960 ml 840 ml Current Medications: Meds: Current Medications Medications (Trade) Dose Ordered Sig/Jasmeet Route PRN Reason Start Time Stop Time Status Last Admin Dose Admin Acetaminophen (Tylenol) 650 mg PRN Q4HRS PRN PO MILD PAIN / TEMP > 100.3'F 06/15/20 18:00 06/26/20 15:15 Amlodipine Besylate (Norvasc) 2.5 mg BID PO 06/15/20 21:00 06/27/20 08:19 Cetirizine HCl (ZyrTEC) 10 mg HS PO 06/15/20 21:00 06/26/20 21:27 Docusate Sodium (Colace) 100 mg PRN BID PRN PO CONSTIPATION 06/15/20 18:00 Multivit/Ca Carb/ B Cmplx/FA/Prenat (Nephro-Marilyn) 1 tab DAILY PO 06/16/20 09:00 06/27/20 08:20 Acetaminophen/ Hydrocodone Bitart (Lortab 7.5/325) 1 tab BID PO 06/15/20 21:00 06/27/20 08:31 Lorazepam (Ativan) 0.5 mg BID PO 06/15/20 21:00 06/26/20 18:20 DC 06/26/20 09:39 Al Hydroxide/Mg Hydroxide (Mylanta Plus Xs) 30 ml PRN DAILY PRN PO DYSPEPSIA 06/15/20 18:00 06/25/20 20:44 Al Hydroxide/Mg Hydroxide (Mylanta Plus Xs) 355 ml DAILY PO 06/16/20 09:00 UNV Quetiapine Fumarate (SEROquel) 25 mg HS PO 06/15/20 21:00 06/16/20 16:15 DC 06/15/20 20:09 Thiamine HCl (Vitamin B-1) 100 mg BID PO 06/15/20 21:00 06/27/20 08:19 Trazodone HCl (Desyrel) 100 mg BID PO 06/15/20 21:00 06/23/20 17:55 DC 06/23/20 07:54 Pantoprazole Sodium (Protonix) 40 mg DAILY PO 06/16/20 09:00 06/27/20 08:19 Olanzapine (ZyPREXA ZYDIS) 5 mg PRN Q2HR PRN PO PSYCHOSIS 06/15/20 18:00 06/21/20 20:03 Quetiapine Fumarate (SEROquel) 25 mg TIDAC PO 06/17/20 09:00 06/24/20 14:08 DC 06/24/20 11:37 Mirtazapine (Remeron) 7.5 mg QHS PO 06/16/20 21:00 06/18/20 20:59 DC 06/17/20 18:34 Sertraline HCl (Zoloft) 25 mg DAILY PO 06/19/20 09:00 06/21/20 09:00 DC 06/21/20 09:01 Mirtazapine (Remeron) 7.5 mg QHS PO 06/18/20 21:00 06/18/20 20:59 DC Mirtazapine (Remeron) 15 mg QHS PO 06/18/20 21:00 06/26/20 18:20 DC 06/25/20 20:43 Divalproex Sodium (Depakote Sprinkles) 250 mg 0900,2100 PO 06/19/20 21:00 06/27/20 08:19 Al Hydroxide/Mg Hydroxide (Mylanta Plus Xs) 30 ml 1X ONCE PO 06/20/20 16:00 06/20/20 16:02 DC 06/20/20 16:00 Sertraline HCl (Zoloft) 50 mg DAILY PO 06/22/20 09:00 06/27/20 08:19 Melatonin (Melatonin) 3 mg PRN QHS PRN PO INSOMNIA 06/20/20 18:30 06/23/20 23:37 Al Hydroxide/Mg Hydroxide (Mylanta Plus Xs) 30 ml DAILY08 PO 06/23/20 08:00 06/22/20 14:58 DC Al Hydroxide/Mg Hydroxide (Mylanta Plus Xs) 30 ml 0800,1300,1700 PO 06/22/20 15:00 06/27/20 08:19 Trazodone HCl (Desyrel) 200 mg HS PO 06/23/20 21:00 06/26/20 21:27 Quetiapine Fumarate (SEROquel) 25 mg DAILY PO 06/25/20 09:00 06/27/20 08:19 Quetiapine Fumarate (SEROquel) 75 mg QHS PO 06/24/20 21:00 06/26/20 21:27 Lorazepam (Ativan) 0.5 mg QHS PO 06/26/20 21:00 06/26/20 21:29 Amitriptyline HCl (Elavil) 25 mg QHS PO 06/26/20 21:00 06/26/20 21:29 Current Medications Medications (Trade) Dose Ordered Sig/Jasmeet Route PRN Reason Start Time Stop Time Status Last Admin Dose Admin Lorazepam (Ativan) 0.5 mg QHS PO 06/26/20 21:00 06/26/20 21:29 Amitriptyline HCl (Elavil) 25 mg QHS PO 06/26/20 21:00 06/26/20 21:29 I have reviewed the current psychotropics carefully including drug interactions. Risk benefit ratio favors no change other than as noted in my dictated progress note. Diagnosis: Problems: (1) Impulse control disorder, unspecified (2) Anxiety disorder, unspecified (3) Dementia, vascular, with depression (4) Dementia, vascular, with delusions (5) Dementia in Alzheimer's disease with depression (6) Dementia in Alzheimer's disease with delusions (7) Major neurocognitive disorder (8) Dementia associated with alcoholism with behavioral disturbance ARY PABLO MD Jun 27, 2020 09:02
[2020-06-27 16:08] VITALS: BP 104/68
--- NOTE | 2020-06-27 18:11 | NUR ---
Nursing note: Pt has spent most of the shift in the day room, but occasionally will walk around the unit. He occasionally complains of pain in his stomach, but is relieved by the mylanta he receives after meals. He has been very pleasant today. No behaviors noted. Will continue to monitor.
[2020-06-27] MEDS: CETIRIZINE HCL 10 MG TABLET PO SCH (21:12)
[2020-06-27] MEDS: traZODone 100 MG TABLET. PO SCH (21:12)
[2020-06-27] MEDS: LORazepam 0.5 MG TABLET PO SCH (21:14)
[2020-06-27] MEDS: AMITRIPTYLINE HCL 50 MG TABLET PO SCH (21:15)
--- NOTE | 2020-06-27 21:15 | PDOC ---
Exam Note: Srini Note: Please also refer to the separate dictated note~for this date of service dictated separately.~Patient seen individually. Discussed the patient with Nursing staff reviewed the chart.~Reviewed interim history and current functioning. Reviewed vital signs,~Labs/ Radiology~and current medications noted below. Continue current treatment with the changes noted in the dictated addendum note Assessment: Vital Signs/I&O: Vital Signs Date Time Temp Pulse Resp B/P (MAP) Pulse Ox O2 Delivery O2 Flow Rate FiO2 06/27/20 16:08 98.7 90 18 104/68 (80) 97 06/25/20 15:39 Room Air I & O 06/26/20 06/26/20 06/27/20 15:00 23:00 07:00 Intake Total 960 ml 840 ml Balance 960 ml 840 ml Current Medications: Meds: Current Medications Medications (Trade) Dose Ordered Sig/Jasmeet Route PRN Reason Start Time Stop Time Status Last Admin Dose Admin Acetaminophen (Tylenol) 650 mg PRN Q4HRS PRN PO MILD PAIN / TEMP > 100.3'F 06/15/20 18:00 06/26/20 15:15 Amlodipine Besylate (Norvasc) 2.5 mg BID PO 06/15/20 21:00 06/27/20 08:19 Cetirizine HCl (ZyrTEC) 10 mg HS PO 06/15/20 21:00 06/26/20 21:27 Docusate Sodium (Colace) 100 mg PRN BID PRN PO CONSTIPATION 06/15/20 18:00 Multivit/Ca Carb/ B Cmplx/FA/Prenat (Nephro-Marilyn) 1 tab DAILY PO 06/16/20 09:00 06/27/20 08:20 Acetaminophen/ Hydrocodone Bitart (Lortab 7.5/325) 1 tab BID PO 06/15/20 21:00 06/27/20 08:31 Lorazepam (Ativan) 0.5 mg BID PO 06/15/20 21:00 06/26/20 18:20 DC 06/26/20 09:39 Al Hydroxide/Mg Hydroxide (Mylanta Plus Xs) 30 ml PRN DAILY PRN PO DYSPEPSIA 06/15/20 18:00 06/25/20 20:44 Al Hydroxide/Mg Hydroxide (Mylanta Plus Xs) 355 ml DAILY PO 06/16/20 09:00 UNV Quetiapine Fumarate (SEROquel) 25 mg HS PO 06/15/20 21:00 06/16/20 16:15 DC 06/15/20 20:09 Thiamine HCl (Vitamin B-1) 100 mg BID PO 06/15/20 21:00 06/27/20 08:19 Trazodone HCl (Desyrel) 100 mg BID PO 06/15/20 21:00 06/23/20 17:55 DC 06/23/20 07:54 Pantoprazole Sodium (Protonix) 40 mg DAILY PO 06/16/20 09:00 06/27/20 08:19 Olanzapine (ZyPREXA ZYDIS) 5 mg PRN Q2HR PRN PO PSYCHOSIS 06/15/20 18:00 06/21/20 20:03 Quetiapine Fumarate (SEROquel) 25 mg TIDAC PO 06/17/20 09:00 06/24/20 14:08 DC 06/24/20 11:37 Mirtazapine (Remeron) 7.5 mg QHS PO 06/16/20 21:00 06/18/20 20:59 DC 06/17/20 18:34 Sertraline HCl (Zoloft) 25 mg DAILY PO 06/19/20 09:00 06/21/20 09:00 DC 06/21/20 09:01 Mirtazapine (Remeron) 7.5 mg QHS PO 06/18/20 21:00 06/18/20 20:59 DC Mirtazapine (Remeron) 15 mg QHS PO 06/18/20 21:00 06/26/20 18:20 DC 06/25/20 20:43 Divalproex Sodium (Depakote Sprinkles) 250 mg 0900,2100 PO 06/19/20 21:00 06/27/20 08:19 Al Hydroxide/Mg Hydroxide (Mylanta Plus Xs) 30 ml 1X ONCE PO 06/20/20 16:00 06/20/20 16:02 DC 06/20/20 16:00 Sertraline HCl (Zoloft) 50 mg DAILY PO 06/22/20 09:00 06/27/20 08:19 Melatonin (Melatonin) 3 mg PRN QHS PRN PO INSOMNIA 06/20/20 18:30 06/23/20 23:37 Al Hydroxide/Mg Hydroxide (Mylanta Plus Xs) 30 ml DAILY08 PO 06/23/20 08:00 06/22/20 14:58 DC Al Hydroxide/Mg Hydroxide (Mylanta Plus Xs) 30 ml 0800,1300,1700 PO 06/22/20 15:00 06/27/20 17:41 Trazodone HCl (Desyrel) 200 mg HS PO 06/23/20 21:00 06/26/20 21:27 Quetiapine Fumarate (SEROquel) 25 mg DAILY PO 06/25/20 09:00 06/27/20 08:19 Quetiapine Fumarate (SEROquel) 75 mg QHS PO 06/24/20 21:00 06/26/20 21:27 Lorazepam (Ativan) 0.5 mg QHS PO 06/26/20 21:00 06/26/20 21:29 Amitriptyline HCl (Elavil) 25 mg QHS PO 06/26/20 21:00 06/27/20 18:48 DC 06/26/20 21:29 Amitriptyline HCl (Elavil) 50 mg QHS PO 06/27/20 21:00 I have reviewed the current psychotropics carefully including drug interactions. Risk benefit ratio favors no change other than as noted in my dictated progress note. Diagnosis: Problems: (1) Impulse control disorder, unspecified (2) Anxiety disorder, unspecified (3) Dementia, vascular, with depression (4) Dementia, vascular, with delusions (5) Dementia in Alzheimer's disease with depression (6) Dementia in Alzheimer's disease with delusions (7) Major neurocognitive disorder (8) Dementia associated with alcoholism with behavioral disturbance ARY PABLO MD Jun 27, 2020 21:15
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
[2020-06-28 05:48] VITALS: BP 131/79
[2020-06-28] MEDS: MAG HYDROX/AL HYDROX/SIMETH 30 ML ORAL.SUSP PO SCH ×3 (08:04→17:00)
[2020-06-28] MEDS: amLODIPine BESYLATE 2.5 MG TABLET PO SCH ×2 (08:05→20:57)
[2020-06-28] MEDS: FOLIC/VIT B COMP W-C (RENAL) TABLET. PO SCH (08:05)
[2020-06-28] MEDS: PANTOPRAZOLE 40 MG TABLET. PO SCH (08:05)
[2020-06-28] MEDS: THIAMINE 100 MG TABLET. PO SCH ×2 (08:05→20:56)
[2020-06-28] MEDS: HYDROcodone/APAP 7.5/325MG 1 TAB TABLET PO SCH ×2 (08:05→20:57)
[2020-06-28] MEDS: DIVALPROEX 125 MG CAP.SPRINK PO SCH ×2 (08:05→20:57)
[2020-06-28] MEDS: SERTRALINE 50 MG TABLET. PO SCH (08:05)
[2020-06-28] MEDS: QUEtiapine 25 MG TABLET. PO SCH ×2 (08:06→20:56)
--- NOTE | 2020-06-28 08:51 | PDOC ---
Exam Note: Srini Note: This note is a late entry for 06/27/2020 covers elements not covered in my initial note. Subjective: The patient was seen face to face in the evening of 06/27/2020 with Maria Victoria LY, discussed and reviewed the chart. The patient slept just 3-1/2 hours previous night. He has been wandering, less agitated, more compliant with his medications. Review of Systems: No CV, , pulmonary, eye, ENT system symptoms on review. Mental Status Exam: The patient is oriented to himself and situation. Speech has some latency, coherent. Abstraction is fair. Computation impaired. Language function is intact. Mood and affect is improved. Laboratory Data: Reviewed. Impression: Major neurocognitive disorder Alzheimer vascular with delusion, depression, behavioral disturbance. Anxiety disorder unspecified. Impulse control disorder unspecified. Plan: Increase amitriptyline from 25 mg h.s. to 50 mg h.s. Maintain rest of the psychotropics unchanged. We will adjust Depakote further as indicated but valproic acid level right now is 52 therapeutic. Assessment: Vital Signs/I&O: Vital Signs Date Time Temp Pulse Resp B/P (MAP) Pulse Ox O2 Delivery O2 Flow Rate FiO2 06/28/20 08:05 99 131/79 06/28/20 05:48 97.9 17 95 Room Air I & O 06/27/20 06/27/20 06/28/20 15:00 23:00 07:00 Intake Total 960 ml 720 ml Balance 960 ml 720 ml Current Medications: Meds: Current Medications Medications (Trade) Dose Ordered Sig/Jasmeet Route PRN Reason Start Time Stop Time Status Last Admin Dose Admin Acetaminophen (Tylenol) 650 mg PRN Q4HRS PRN PO MILD PAIN / TEMP > 100.3'F 06/15/20 18:00 06/26/20 15:15 Amlodipine Besylate (Norvasc) 2.5 mg BID PO 06/15/20 21:00 06/28/20 08:05 Cetirizine HCl (ZyrTEC) 10 mg HS PO 06/15/20 21:00 06/27/20 21:12 Docusate Sodium (Colace) 100 mg PRN BID PRN PO CONSTIPATION 06/15/20 18:00 Multivit/Ca Carb/ B Cmplx/FA/Prenat (Nephro-Marilyn) 1 tab DAILY PO 06/16/20 09:00 06/28/20 08:05 Acetaminophen/ Hydrocodone Bitart (Lortab 7.5/325) 1 tab BID PO 06/15/20 21:00 06/28/20 08:05 Lorazepam (Ativan) 0.5 mg BID PO 06/15/20 21:00 06/26/20 18:20 DC 06/26/20 09:39 Al Hydroxide/Mg Hydroxide (Mylanta Plus Xs) 30 ml PRN DAILY PRN PO DYSPEPSIA 06/15/20 18:00 06/25/20 20:44 Al Hydroxide/Mg Hydroxide (Mylanta Plus Xs) 355 ml DAILY PO 06/16/20 09:00 UNV Quetiapine Fumarate (SEROquel) 25 mg HS PO 06/15/20 21:00 06/16/20 16:15 DC 06/15/20 20:09 Thiamine HCl (Vitamin B-1) 100 mg BID PO 06/15/20 21:00 06/28/20 08:05 Trazodone HCl (Desyrel) 100 mg BID PO 06/15/20 21:00 06/23/20 17:55 DC 06/23/20 07:54 Pantoprazole Sodium (Protonix) 40 mg DAILY PO 06/16/20 09:00 06/28/20 08:05 Olanzapine (ZyPREXA ZYDIS) 5 mg PRN Q2HR PRN PO PSYCHOSIS 06/15/20 18:00 06/21/20 20:03 Quetiapine Fumarate (SEROquel) 25 mg TIDAC PO 06/17/20 09:00 06/24/20 14:08 DC 06/24/20 11:37 Mirtazapine (Remeron) 7.5 mg QHS PO 06/16/20 21:00 06/18/20 20:59 DC 06/17/20 18:34 Sertraline HCl (Zoloft) 25 mg DAILY PO 06/19/20 09:00 06/21/20 09:00 DC 06/21/20 09:01 Mirtazapine (Remeron) 7.5 mg QHS PO 06/18/20 21:00 06/18/20 20:59 DC Mirtazapine (Remeron) 15 mg QHS PO 06/18/20 21:00 06/26/20 18:20 DC 06/25/20 20:43 Divalproex Sodium (Depakote Sprinkles) 250 mg 0900,2100 PO 06/19/20 21:00 06/28/20 08:05 Al Hydroxide/Mg Hydroxide (Mylanta Plus Xs) 30 ml 1X ONCE PO 06/20/20 16:00 06/20/20 16:02 DC 06/20/20 16:00 Sertraline HCl (Zoloft) 50 mg DAILY PO 06/22/20 09:00 06/28/20 08:05 Melatonin (Melatonin) 3 mg PRN QHS PRN PO INSOMNIA 06/20/20 18:30 06/23/20 23:37 Al Hydroxide/Mg Hydroxide (Mylanta Plus Xs) 30 ml DAILY08 PO 06/23/20 08:00 06/22/20 14:58 DC Al Hydroxide/Mg Hydroxide (Mylanta Plus Xs) 30 ml 0800,1300,1700 PO 06/22/20 15:00 06/28/20 08:04 Trazodone HCl (Desyrel) 200 mg HS PO 06/23/20 21:00 06/27/20 21:12 Quetiapine Fumarate (SEROquel) 25 mg DAILY PO 06/25/20 09:00 06/28/20 08:06 Quetiapine Fumarate (SEROquel) 75 mg QHS PO 06/24/20 21:00 06/27/20 21:12 Lorazepam (Ativan) 0.5 mg QHS PO 06/26/20 21:00 06/27/20 21:14 Amitriptyline HCl (Elavil) 25 mg QHS PO 06/26/20 21:00 06/27/20 18:48 DC 06/26/20 21:29 Amitriptyline HCl (Elavil) 50 mg QHS PO 06/27/20 21:00 06/27/20 21:15 Current Medications Medications (Trade) Dose Ordered Sig/Jasmeet Route PRN Reason Start Time Stop Time Status Last Admin Dose Admin Amitriptyline HCl (Elavil) 50 mg QHS PO 06/27/20 21:00 06/27/20 21:15 I have reviewed the current psychotropics carefully including drug interactions. Risk benefit ratio favors no change other than as noted in my dictated progress note. Diagnosis: Problems: (1) Impulse control disorder, unspecified (2) Anxiety disorder, unspecified (3) Dementia, vascular, with depression (4) Dementia, vascular, with delusions (5) Dementia in Alzheimer's disease with depression (6) Dementia in Alzheimer's disease with delusions (7) Major neurocognitive disorder (8) Dementia associated with alcoholism with behavioral disturbance ARY PABLO MD Jun 28, 2020 08:51
[2020-06-28 15:27] VITALS: BP 109/70
--- NOTE | 2020-06-28 16:07 | NUR ---
Patient eating breakfast in dining [place] at time of assessment. Patient given medication whole floated in pudding with no problems. He takes medications fine but does state he will not take medications if they are crushed any more. I told him we would try to give him whole but as we were talking he was holding medications in his mouth. We will continue to crush medications until he can not hold medications in his mouth. He otherwise took them with no problems. Patient has no further complaints. No further concerns at this time.
[2020-06-28] MEDS: AMITRIPTYLINE HCL 50 MG TABLET PO SCH (20:56)
[2020-06-28] MEDS: LORazepam 0.5 MG TABLET PO SCH (20:56)
[2020-06-28] MEDS: traZODone 100 MG TABLET. PO SCH (20:56)
[2020-06-28] MEDS: CETIRIZINE HCL 10 MG TABLET PO SCH (20:57)
--- NOTE | 2020-06-28 21:13 | PDOC ---
Exam Note: Srini Note: Please also refer to the separate dictated note~for this date of service dictated separately.~Patient seen individually. Discussed the patient with Nursing staff reviewed the chart.~Reviewed interim history and current functioning. Reviewed vital signs,~Labs/ Radiology~and current medications noted below. Continue current treatment with the changes noted in the dictated addendum note Assessment: Vital Signs/I&O: Vital Signs Date Time Temp Pulse Resp B/P (MAP) Pulse Ox O2 Delivery O2 Flow Rate FiO2 06/28/20 20:57 83 109/70 06/28/20 15:27 97.8 16 99 Room Air I & O 06/27/20 06/27/20 06/28/20 14:59 22:59 06:59 Intake Total 960 ml 720 ml Balance 960 ml 720 ml Current Medications: Meds: Current Medications Medications (Trade) Dose Ordered Sig/Jasmeet Route PRN Reason Start Time Stop Time Status Last Admin Dose Admin Acetaminophen (Tylenol) 650 mg PRN Q4HRS PRN PO MILD PAIN / TEMP > 100.3'F 06/15/20 18:00 06/26/20 15:15 Amlodipine Besylate (Norvasc) 2.5 mg BID PO 06/15/20 21:00 06/28/20 20:57 Cetirizine HCl (ZyrTEC) 10 mg HS PO 06/15/20 21:00 06/28/20 20:57 Docusate Sodium (Colace) 100 mg PRN BID PRN PO CONSTIPATION 06/15/20 18:00 Multivit/Ca Carb/ B Cmplx/FA/Prenat (Nephro-Mariyln) 1 tab DAILY PO 06/16/20 09:00 06/28/20 08:05 Acetaminophen/ Hydrocodone Bitart (Lortab 7.5/325) 1 tab BID PO 06/15/20 21:00 06/28/20 20:57 Lorazepam (Ativan) 0.5 mg BID PO 06/15/20 21:00 06/26/20 18:20 DC 06/26/20 09:39 Al Hydroxide/Mg Hydroxide (Mylanta Plus Xs) 30 ml PRN DAILY PRN PO DYSPEPSIA 06/15/20 18:00 06/25/20 20:44 Al Hydroxide/Mg Hydroxide (Mylanta Plus Xs) 355 ml DAILY PO 06/16/20 09:00 UNV Quetiapine Fumarate (SEROquel) 25 mg HS PO 06/15/20 21:00 06/16/20 16:15 DC 06/15/20 20:09 Thiamine HCl (Vitamin B-1) 100 mg BID PO 06/15/20 21:00 06/28/20 20:56 Trazodone HCl (Desyrel) 100 mg BID PO 06/15/20 21:00 06/23/20 17:55 DC 06/23/20 07:54 Pantoprazole Sodium (Protonix) 40 mg DAILY PO 06/16/20 09:00 06/28/20 08:05 Olanzapine (ZyPREXA ZYDIS) 5 mg PRN Q2HR PRN PO PSYCHOSIS 06/15/20 18:00 06/21/20 20:03 Quetiapine Fumarate (SEROquel) 25 mg TIDAC PO 06/17/20 09:00 06/24/20 14:08 DC 06/24/20 11:37 Mirtazapine (Remeron) 7.5 mg QHS PO 06/16/20 21:00 06/18/20 20:59 DC 06/17/20 18:34 Sertraline HCl (Zoloft) 25 mg DAILY PO 06/19/20 09:00 06/21/20 09:00 DC 06/21/20 09:01 Mirtazapine (Remeron) 7.5 mg QHS PO 06/18/20 21:00 06/18/20 20:59 DC Mirtazapine (Remeron) 15 mg QHS PO 06/18/20 21:00 06/26/20 18:20 DC 06/25/20 20:43 Divalproex Sodium (Depakote Sprinkles) 250 mg 0900,2100 PO 06/19/20 21:00 06/28/20 20:57 Al Hydroxide/Mg Hydroxide (Mylanta Plus Xs) 30 ml 1X ONCE PO 06/20/20 16:00 06/20/20 16:02 DC 06/20/20 16:00 Sertraline HCl (Zoloft) 50 mg DAILY PO 06/22/20 09:00 06/28/20 08:05 Melatonin (Melatonin) 3 mg PRN QHS PRN PO INSOMNIA 06/20/20 18:30 06/23/20 23:37 Al Hydroxide/Mg Hydroxide (Mylanta Plus Xs) 30 ml DAILY08 PO 06/23/20 08:00 06/22/20 14:58 DC Al Hydroxide/Mg Hydroxide (Mylanta Plus Xs) 30 ml 0800,1300,1700 PO 06/22/20 15:00 06/28/20 17:00 Trazodone HCl (Desyrel) 200 mg HS PO 06/23/20 21:00 06/28/20 20:56 Quetiapine Fumarate (SEROquel) 25 mg DAILY PO 06/25/20 09:00 06/28/20 08:06 Quetiapine Fumarate (SEROquel) 75 mg QHS PO 06/24/20 21:00 06/28/20 20:56 Lorazepam (Ativan) 0.5 mg QHS PO 06/26/20 21:00 06/28/20 20:56 Amitriptyline HCl (Elavil) 25 mg QHS PO 06/26/20 21:00 06/27/20 18:48 DC 06/26/20 21:29 Amitriptyline HCl (Elavil) 50 mg QHS PO 06/27/20 21:00 06/28/20 20:56 I have reviewed the current psychotropics carefully including drug interactions. Risk benefit ratio favors no change other than as noted in my dictated progress note. Diagnosis: Problems: (1) Impulse control disorder, unspecified (2) Anxiety disorder, unspecified (3) Dementia, vascular, with depression (4) Dementia, vascular, with delusions (5) Dementia in Alzheimer's disease with depression (6) Dementia in Alzheimer's disease with delusions (7) Major neurocognitive disorder (8) Dementia associated with alcoholism with behavioral disturbance ARY PABLO MD Jun 28, 2020 21:13
--- NOTE | 2020-06-29 02:52 | NUR ---
Las evening pt was social and active on uni. He took meds whole without difficulty. He has had no behaviors, has been a little less hyperverbal tonight and has been sleeping well.
[2020-06-29 06:11] VITALS: BP 111/70
[2020-06-29 06:12] VITALS: BP 111/70
[2020-06-29] MEDS: THIAMINE 100 MG TABLET. PO SCH ×2 (08:01→19:30)
[2020-06-29] MEDS: DIVALPROEX 125 MG CAP.SPRINK PO SCH ×2 (08:02→19:31)
[2020-06-29] MEDS: CETIRIZINE HCL 10 MG TABLET PO SCH (08:02)
[2020-06-29] MEDS: amLODIPine BESYLATE 2.5 MG TABLET PO SCH ×2 (08:02→19:32)
[2020-06-29] MEDS: HYDROcodone/APAP 7.5/325MG 1 TAB TABLET PO SCH ×2 (08:02→19:30)
[2020-06-29] MEDS: SERTRALINE 50 MG TABLET. PO SCH (08:03)
[2020-06-29] MEDS: FOLIC/VIT B COMP W-C (RENAL) TABLET. PO SCH (08:03)
[2020-06-29] MEDS: QUEtiapine 25 MG TABLET. PO SCH ×2 (08:03→19:31)
[2020-06-29] MEDS: PANTOPRAZOLE 40 MG TABLET. PO SCH (08:03)
[2020-06-29] MEDS: MAG HYDROX/AL HYDROX/SIMETH 30 ML ORAL.SUSP PO SCH ×3 (08:03→17:00)
[2020-06-29 15:49] VITALS: BP 146/91
[2020-06-29] MEDS: traZODone 100 MG TABLET. PO SCH (19:31)
[2020-06-29] MEDS: AMITRIPTYLINE HCL 50 MG TABLET PO SCH (19:31)
[2020-06-29] MEDS: LORazepam 0.5 MG TABLET PO SCH (19:32)
--- NOTE | 2020-06-29 20:59 | PDOC ---
Exam Note: Srini Note: Please also refer to the separate dictated note~for this date of service dictated separately.~Patient seen individually. Discussed the patient with Nursing staff reviewed the chart.~Reviewed interim history and current functioning. Reviewed vital signs,~Labs/ Radiology~and current medications noted below. Continue current treatment with the changes noted in the dictated addendum note Assessment: Vital Signs/I&O: Vital Signs Date Time Temp Pulse Resp B/P (MAP) Pulse Ox O2 Delivery O2 Flow Rate FiO2 06/29/20 19:32 96 146/91 06/29/20 19:30 Room Air 06/29/20 15:49 98.2 20 99 I & O 06/28/20 06/28/20 06/29/20 15:00 23:00 07:00 Intake Total 840 ml 600 ml Balance 840 ml 600 ml Current Medications: Meds: Current Medications Medications (Trade) Dose Ordered Sig/Jasmeet Route PRN Reason Start Time Stop Time Status Last Admin Dose Admin Acetaminophen (Tylenol) 650 mg PRN Q4HRS PRN PO MILD PAIN / TEMP > 100.3'F 06/15/20 18:00 06/26/20 15:15 Amlodipine Besylate (Norvasc) 2.5 mg BID PO 06/15/20 21:00 06/29/20 19:32 Cetirizine HCl (ZyrTEC) 10 mg HS PO 06/15/20 21:00 06/29/20 08:02 Docusate Sodium (Colace) 100 mg PRN BID PRN PO CONSTIPATION 06/15/20 18:00 Multivit/Ca Carb/ B Cmplx/FA/Prenat (Nephro-Marilyn) 1 tab DAILY PO 06/16/20 09:00 06/29/20 08:03 Acetaminophen/ Hydrocodone Bitart (Lortab 7.5/325) 1 tab BID PO 06/15/20 21:00 06/29/20 19:30 Lorazepam (Ativan) 0.5 mg BID PO 06/15/20 21:00 06/26/20 18:20 DC 06/26/20 09:39 Al Hydroxide/Mg Hydroxide (Mylanta Plus Xs) 30 ml PRN DAILY PRN PO DYSPEPSIA 06/15/20 18:00 06/25/20 20:44 Al Hydroxide/Mg Hydroxide (Mylanta Plus Xs) 355 ml DAILY PO 06/16/20 09:00 UNV Quetiapine Fumarate (SEROquel) 25 mg HS PO 06/15/20 21:00 06/16/20 16:15 DC 06/15/20 20:09 Thiamine HCl (Vitamin B-1) 100 mg BID PO 06/15/20 21:00 06/29/20 19:30 Trazodone HCl (Desyrel) 100 mg BID PO 06/15/20 21:00 06/23/20 17:55 DC 06/23/20 07:54 Pantoprazole Sodium (Protonix) 40 mg DAILY PO 06/16/20 09:00 06/29/20 08:03 Olanzapine (ZyPREXA ZYDIS) 5 mg PRN Q2HR PRN PO PSYCHOSIS 06/15/20 18:00 06/21/20 20:03 Quetiapine Fumarate (SEROquel) 25 mg TIDAC PO 06/17/20 09:00 06/24/20 14:08 DC 06/24/20 11:37 Mirtazapine (Remeron) 7.5 mg QHS PO 06/16/20 21:00 06/18/20 20:59 DC 06/17/20 18:34 Sertraline HCl (Zoloft) 25 mg DAILY PO 06/19/20 09:00 06/21/20 09:00 DC 06/21/20 09:01 Mirtazapine (Remeron) 7.5 mg QHS PO 06/18/20 21:00 06/18/20 20:59 DC Mirtazapine (Remeron) 15 mg QHS PO 06/18/20 21:00 06/26/20 18:20 DC 06/25/20 20:43 Divalproex Sodium (Depakote Sprinkles) 250 mg 0900,2100 PO 06/19/20 21:00 06/29/20 19:31 Al Hydroxide/Mg Hydroxide (Mylanta Plus Xs) 30 ml 1X ONCE PO 06/20/20 16:00 06/20/20 16:02 DC 06/20/20 16:00 Sertraline HCl (Zoloft) 50 mg DAILY PO 06/22/20 09:00 06/29/20 08:03 Melatonin (Melatonin) 3 mg PRN QHS PRN PO INSOMNIA 06/20/20 18:30 06/23/20 23:37 Al Hydroxide/Mg Hydroxide (Mylanta Plus Xs) 30 ml DAILY08 PO 06/23/20 08:00 06/22/20 14:58 DC Al Hydroxide/Mg Hydroxide (Mylanta Plus Xs) 30 ml 0800,1300,1700 PO 06/22/20 15:00 06/29/20 17:00 Trazodone HCl (Desyrel) 200 mg HS PO 06/23/20 21:00 06/29/20 19:31 Quetiapine Fumarate (SEROquel) 25 mg DAILY PO 06/25/20 09:00 06/29/20 08:03 Quetiapine Fumarate (SEROquel) 75 mg QHS PO 06/24/20 21:00 06/29/20 19:31 Lorazepam (Ativan) 0.5 mg QHS PO 06/26/20 21:00 06/29/20 19:32 Amitriptyline HCl (Elavil) 25 mg QHS PO 06/26/20 21:00 06/27/20 18:48 DC 06/26/20 21:29 Amitriptyline HCl (Elavil) 50 mg QHS PO 06/27/20 21:00 06/29/20 19:31 I have reviewed the current psychotropics carefully including drug interactions. Risk benefit ratio favors no change other than as noted in my dictated progress note. Diagnosis: Problems: (1) Impulse control disorder, unspecified (2) Anxiety disorder, unspecified (3) Dementia, vascular, with depression (4) Dementia, vascular, with delusions (5) Dementia in Alzheimer's disease with depression (6) Dementia in Alzheimer's disease with delusions (7) Major neurocognitive disorder (8) Dementia associated with alcoholism with behavioral disturbance ARY PABLO MD Jun 29, 2020 20:59
--- NOTE | 2020-06-30 00:50 | NUR ---
Lesley magallon mainly sat quietly in the [facility]unn or day room. He was pleasant and social with no aggressive behavior. He told nurse how his brother from a [place] in which he was fed a frog which made him ill and ultimately led to his .
[2020-06-30 05:45] VITALS: BP 97/63
[2020-06-30] MEDS: amLODIPine BESYLATE 2.5 MG TABLET PO SCH ×2 (09:00→20:32)
[2020-06-30] MEDS: MAG HYDROX/AL HYDROX/SIMETH 30 ML ORAL.SUSP PO SCH ×3 (09:00→17:28)
[2020-06-30] MEDS: DIVALPROEX 125 MG CAP.SPRINK PO SCH ×2 (09:00→20:33)
[2020-06-30] MEDS: FOLIC/VIT B COMP W-C (RENAL) TABLET. PO SCH (09:01)
[2020-06-30] MEDS: HYDROcodone/APAP 7.5/325MG 1 TAB TABLET PO SCH ×2 (09:01→20:32)
[2020-06-30] MEDS: THIAMINE 100 MG TABLET. PO SCH ×2 (09:02→20:33)
[2020-06-30] MEDS: PANTOPRAZOLE 40 MG TABLET. PO SCH (09:02)
[2020-06-30] MEDS: SERTRALINE 50 MG TABLET. PO SCH (09:02)
[2020-06-30] MEDS: QUEtiapine 25 MG TABLET. PO SCH ×2 (09:02→20:32)
--- NOTE | 2020-06-30 12:19 | NUR ---
Pt is cooperative and compliant. No agitation, no aggression, no hallucinations or delusions noted. He is compliant with his medication and assessment. He is less hyperverbal this week than last week.
[2020-06-30 16:29] VITALS: BP 144/86
--- NOTE | 2020-06-30 17:43 | NUR ---
Pt is delusional yelling out fire, youre , youre going to . Staff is unable to redirect pt. PRN yonathan juarez given with dinner.
[2020-06-30] MEDS: AMITRIPTYLINE HCL 50 MG TABLET PO SCH (20:32)
[2020-06-30] MEDS: CETIRIZINE HCL 10 MG TABLET PO SCH (20:32)
[2020-06-30] MEDS: LORazepam 0.5 MG TABLET PO SCH (20:33)
[2020-06-30] MEDS: traZODone 100 MG TABLET. PO SCH (20:33)
--- NOTE | 2020-06-30 22:07 | PDOC ---
Exam Note: Srini Note: Please also refer to the separate dictated note~for this date of service dictated separately.~Patient seen individually. Discussed the patient with Nursing staff reviewed the chart.~Reviewed interim history and current functioning. Reviewed vital signs,~Labs/ Radiology~and current medications noted below. Continue current treatment with the changes noted in the dictated addendum note Assessment: Vital Signs/I&O: Vital Signs Date Time Temp Pulse Resp B/P (MAP) Pulse Ox O2 Delivery O2 Flow Rate FiO2 06/30/20 22:03 97 06/30/20 20:32 105 144/86 06/30/20 16:29 98.6 20 Room Air I & O 06/29/20 06/29/20 06/30/20 15:00 23:00 07:00 Intake Total 840 ml 600 ml Balance 840 ml 600 ml Current Medications: Meds: Current Medications Medications (Trade) Dose Ordered Sig/Jasmeet Route PRN Reason Start Time Stop Time Status Last Admin Dose Admin Acetaminophen (Tylenol) 650 mg PRN Q4HRS PRN PO MILD PAIN / TEMP > 100.3'F 06/15/20 18:00 06/26/20 15:15 Amlodipine Besylate (Norvasc) 2.5 mg BID PO 06/15/20 21:00 06/30/20 20:32 Cetirizine HCl (ZyrTEC) 10 mg HS PO 06/15/20 21:00 06/30/20 20:32 Docusate Sodium (Colace) 100 mg PRN BID PRN PO CONSTIPATION 06/15/20 18:00 Multivit/Ca Carb/ B Cmplx/FA/Prenat (Nephro-Marilyn) 1 tab DAILY PO 06/16/20 09:00 06/30/20 09:01 Acetaminophen/ Hydrocodone Bitart (Lortab 7.5/325) 1 tab BID PO 06/15/20 21:00 06/30/20 20:32 Lorazepam (Ativan) 0.5 mg BID PO 06/15/20 21:00 06/26/20 18:20 DC 06/26/20 09:39 Al Hydroxide/Mg Hydroxide (Mylanta Plus Xs) 30 ml PRN DAILY PRN PO DYSPEPSIA 06/15/20 18:00 06/25/20 20:44 Al Hydroxide/Mg Hydroxide (Mylanta Plus Xs) 355 ml DAILY PO 06/16/20 09:00 UNV Quetiapine Fumarate (SEROquel) 25 mg HS PO 06/15/20 21:00 06/16/20 16:15 DC 06/15/20 20:09 Thiamine HCl (Vitamin B-1) 100 mg BID PO 06/15/20 21:00 06/30/20 20:33 Trazodone HCl (Desyrel) 100 mg BID PO 06/15/20 21:00 06/23/20 17:55 DC 06/23/20 07:54 Pantoprazole Sodium (Protonix) 40 mg DAILY PO 06/16/20 09:00 06/30/20 09:02 Olanzapine (ZyPREXA ZYDIS) 5 mg PRN Q2HR PRN PO PSYCHOSIS 06/15/20 18:00 06/21/20 20:03 Quetiapine Fumarate (SEROquel) 25 mg TIDAC PO 06/17/20 09:00 06/24/20 14:08 DC 06/24/20 11:37 Mirtazapine (Remeron) 7.5 mg QHS PO 06/16/20 21:00 06/18/20 20:59 DC 06/17/20 18:34 Sertraline HCl (Zoloft) 25 mg DAILY PO 06/19/20 09:00 06/21/20 09:00 DC 06/21/20 09:01 Mirtazapine (Remeron) 7.5 mg QHS PO 06/18/20 21:00 06/18/20 20:59 DC Mirtazapine (Remeron) 15 mg QHS PO 06/18/20 21:00 06/26/20 18:20 DC 06/25/20 20:43 Divalproex Sodium (Depakote Sprinkles) 250 mg 0900,2100 PO 06/19/20 21:00 06/30/20 20:33 Al Hydroxide/Mg Hydroxide (Mylanta Plus Xs) 30 ml 1X ONCE PO 06/20/20 16:00 06/20/20 16:02 DC 06/20/20 16:00 Sertraline HCl (Zoloft) 50 mg DAILY PO 06/22/20 09:00 06/30/20 09:02 Melatonin (Melatonin) 3 mg PRN QHS PRN PO INSOMNIA 06/20/20 18:30 06/23/20 23:37 Al Hydroxide/Mg Hydroxide (Mylanta Plus Xs) 30 ml DAILY08 PO 06/23/20 08:00 06/22/20 14:58 DC Al Hydroxide/Mg Hydroxide (Mylanta Plus Xs) 30 ml 0800,1300,1700 PO 06/22/20 15:00 06/30/20 17:28 Trazodone HCl (Desyrel) 200 mg HS PO 06/23/20 21:00 06/30/20 20:33 Quetiapine Fumarate (SEROquel) 25 mg DAILY PO 06/25/20 09:00 06/30/20 09:02 Quetiapine Fumarate (SEROquel) 75 mg QHS PO 06/24/20 21:00 06/30/20 20:32 Lorazepam (Ativan) 0.5 mg QHS PO 06/26/20 21:00 06/30/20 20:33 Amitriptyline HCl (Elavil) 25 mg QHS PO 06/26/20 21:00 06/27/20 18:48 DC 06/26/20 21:29 Amitriptyline HCl (Elavil) 50 mg QHS PO 06/27/20 21:00 06/30/20 20:32 I have reviewed the current psychotropics carefully including drug interactions. Risk benefit ratio favors no change other than as noted in my dictated progress note. Diagnosis: Problems: (1) Impulse control disorder, unspecified (2) Anxiety disorder, unspecified (3) Dementia, vascular, with depression (4) Dementia, vascular, with delusions (5) Dementia in Alzheimer's disease with depression (6) Dementia in Alzheimer's disease with delusions (7) Major neurocognitive disorder (8) Dementia associated with alcoholism with behavioral disturbance ARY PABLO MD Jun 30, 2020 22:07
--- NOTE | 2020-06-30 23:14 | NUR ---
Pt located in the dayroom this evening interacting with peers and staff. Compliant with whole medications. Pt continues to be hyperverbal and can be irritable at times.
[2020-07-01 05:29] VITALS: BP 101/56
[2020-07-01] MEDS: amLODIPine BESYLATE 2.5 MG TABLET PO SCH ×2 (09:00→20:04)
[2020-07-01 09:36] LABS: BASO # 0.1 x10^3/uL (0.0-0.2); BASO % 1 % (0-3); EOS # 0.1 x10^3/uL (0.0-0.7); EOS % 2 % (0-3); HEMATOCRIT 32.8 % (39.0-53.0); HEMOGLOBIN 10.2 g/dL (13.0-17.5); LYMPH # 1.4 x10^3/uL (1.0-4.8); LYMPH % 24 % (24-48); MEAN CORPUSCULAR HEMOGLOBIN 26 pg (25-35); MEAN CORPUSCULAR HGB CONC 31 g/dL (31-37); MEAN CORPUSCULAR VOLUME 85 fL (79-100); MONO # 0.8 x10^3/uL (0.0-1.1); MONO % 13 % (0-9); NEUT # 3.7 x10^3uL (1.8-7.7); NEUT % 61 % (31-73); PLATELET COUNT 267 x10^3/uL (140-400); RED BLOOD COUNT 3.88 x10^6/uL (4.30-5.70); RED CELL DISTRIBUTION WIDTH 14.2 % (11.5-14.5)
[2020-07-01] MEDS: DIVALPROEX 125 MG CAP.SPRINK PO SCH ×2 (09:41→20:05)
[2020-07-01] MEDS: MAG HYDROX/AL HYDROX/SIMETH 30 ML ORAL.SUSP PO SCH ×3 (09:41→17:32)
[2020-07-01] MEDS: HYDROcodone/APAP 7.5/325MG 1 TAB TABLET PO SCH ×2 (09:42→20:07)
[2020-07-01] MEDS: FOLIC/VIT B COMP W-C (RENAL) TABLET. PO SCH (09:43)
[2020-07-01] MEDS: SERTRALINE 50 MG TABLET. PO SCH (09:44)
[2020-07-01] MEDS: THIAMINE 100 MG TABLET. PO SCH ×2 (09:44→20:04)
[2020-07-01] MEDS: QUEtiapine 25 MG TABLET. PO SCH ×2 (09:44→20:04)
[2020-07-01] MEDS: PANTOPRAZOLE 40 MG TABLET. PO SCH (09:44)
[2020-07-01 09:53] LABS: ALBUMIN 3.1 g/dL (3.4-5.0); ALBUMIN/GLOBULIN RATIO 0.8 (1.0-1.7); CALCIUM 8.9 mg/dL (8.5-10.1); CREATININE 0.8 mg/dL (0.7-1.3); GFR 116.3; POTASSIUM 3.9 mmol/L (3.5-5.1); TOTAL BILIRUBIN 0.2 mg/dL (0.2-1.0); TOTAL PROTEIN 6.9 g/dL (6.4-8.2)
--- NOTE | 2020-07-01 10:46 | NUR ---
Pt is calm, cooperative, and compliant. No agitation, no aggression, no hallucinations and no delusions noted. He is compliant with his medications and assessment.
[2020-07-01 16:03] VITALS: BP 125/75
[2020-07-01] MEDS: AMITRIPTYLINE HCL 50 MG TABLET PO SCH (20:05)
[2020-07-01] MEDS: traZODone 100 MG TABLET. PO SCH (20:05)
[2020-07-01] MEDS: CETIRIZINE HCL 10 MG TABLET PO SCH (20:05)
[2020-07-01] MEDS: LORazepam 0.5 MG TABLET PO SCH (20:07)
--- NOTE | 2020-07-01 21:06 | PDOC ---
Exam Note: Srini Note: This note is a late entry for 06/28/2020 covers elements not covered in my initial note. Subjective: The patient was seen face to face in the evening of 06/28/2020 with Eloina LY, discussed and reviewed the chart. The patient slept just 5-3/4 hours previous night. He has had a better day, less anxious, restless, fixated on discharge, and I addressed this with him. Review of Systems: No CV, , pulmonary, eye, ENT system symptoms on review. Mental Status Exam: The patient is oriented to himself and situation. Speech has some latency, coherent. Abstraction is fair. Computation impaired. Language function is intact. Mood and affect is improved. Laboratory Data: Reviewed. Impression: Major neurocognitive disorder Alzheimer vascular with delusion, depression, behavioral disturbance. Anxiety disorder unspecified. Impulse control disorder unspecified. Plan: No change from initial note. Assessment: Vital Signs/I&O: Vital Signs Date Time Temp Pulse Resp B/P (MAP) Pulse Ox O2 Delivery O2 Flow Rate FiO2 07/01/20 20:07 98 07/01/20 20:04 106 125/75 07/01/20 16:03 97.4 20 Room Air I & O 06/30/20 06/30/20 07/01/20 14:59 22:59 06:59 Intake Total 960 ml 480 ml 360 ml Balance 960 ml 480 ml 360 ml Labs: Laboratory Tests Test 07/01/20 08:45 White Blood Count 6.0 x10^3/uL (4.0-11.0) Red Blood Count 3.88 x10^6/uL (4.30-5.70) L Hemoglobin 10.2 g/dL (13.0-17.5) L Hematocrit 32.8 % (39.0-53.0) L Mean Corpuscular Volume 85 fL (79-100) Mean Corpuscular Hemoglobin 26 pg (25-35) Mean Corpuscular Hemoglobin Concent 31 g/dL (31-37) Red Cell Distribution Width 14.2 % (11.5-14.5) Platelet Count 267 x10^3/uL (140-400) Neutrophils (%) (Auto) 61 % (31-73) Lymphocytes (%) (Auto) 24 % (24-48) Monocytes (%) (Auto) 13 % (0-9) H Eosinophils (%) (Auto) 2 % (0-3) Basophils (%) (Auto) 1 % (0-3) Neutrophils # (Auto) 3.7 x10^3uL (1.8-7.7) Lymphocytes # (Auto) 1.4 x10^3/uL (1.0-4.8) Monocytes # (Auto) 0.8 x10^3/uL (0.0-1.1) Eosinophils # (Auto) 0.1 x10^3/uL (0.0-0.7) Basophils # (Auto) 0.1 x10^3/uL (0.0-0.2) Sodium Level 140 mmol/L (136-145) Potassium Level 3.9 mmol/L (3.5-5.1) Chloride Level 103 mmol/L (98-107) Carbon Dioxide Level 30 mmol/L (21-32) Anion Gap 7 (6-14) Blood Urea Nitrogen 13 mg/dL (8-26) Creatinine 0.8 mg/dL (0.7-1.3) Estimated GFR (Cockcroft-Gault) 116.3 BUN/Creatinine Ratio 16 (6-20) Glucose Level 77 mg/dL (70-99) Calcium Level 8.9 mg/dL (8.5-10.1) Total Bilirubin 0.2 mg/dL (0.2-1.0) Aspartate Amino Transferase (AST) 13 U/L (15-37) L Alanine Aminotransferase (ALT) 21 U/L (16-63) Alkaline Phosphatase 106 U/L (46-116) Total Protein 6.9 g/dL (6.4-8.2) Albumin 3.1 g/dL (3.4-5.0) L Albumin/Globulin Ratio 0.8 (1.0-1.7) L Current Medications: Meds: Laboratory Tests Test 07/01/20 08:45 White Blood Count 6.0 x10^3/uL Red Blood Count 3.88 x10^6/uL Hemoglobin 10.2 g/dL Hematocrit 32.8 % Mean Corpuscular Volume 85 fL Mean Corpuscular Hemoglobin 26 pg Mean Corpuscular Hemoglobin Concent 31 g/dL Red Cell Distribution Width 14.2 % Platelet Count 267 x10^3/uL Neutrophils (%) (Auto) 61 % Lymphocytes (%) (Auto) 24 % Monocytes (%) (Auto) 13 % Eosinophils (%) (Auto) 2 % Basophils (%) (Auto) 1 % Neutrophils # (Auto) 3.7 x10^3uL Lymphocytes # (Auto) 1.4 x10^3/uL Monocytes # (Auto) 0.8 x10^3/uL Eosinophils # (Auto) 0.1 x10^3/uL Basophils # (Auto) 0.1 x10^3/uL Sodium Level 140 mmol/L Potassium Level 3.9 mmol/L Chloride Level 103 mmol/L Carbon Dioxide Level 30 mmol/L Anion Gap 7 Blood Urea Nitrogen 13 mg/dL Creatinine 0.8 mg/dL Estimated GFR (Cockcroft-Gault) 116.3 BUN/Creatinine Ratio 16 Glucose Level 77 mg/dL Calcium Level 8.9 mg/dL Total Bilirubin 0.2 mg/dL Aspartate Amino Transf (AST/SGOT) 13 U/L Alanine Aminotransferase (ALT/SGPT) 21 U/L Alkaline Phosphatase 106 U/L Total Protein 6.9 g/dL Albumin 3.1 g/dL Albumin/Globulin Ratio 0.8 Current Medications Medications (Trade) Dose Ordered Sig/Jasmeet Route PRN Reason Start Time Stop Time Status Last Admin Dose Admin Acetaminophen (Tylenol) 650 mg PRN Q4HRS PRN PO MILD PAIN / TEMP > 100.3'F 06/15/20 18:00 06/26/20 15:15 Amlodipine Besylate (Norvasc) 2.5 mg BID PO 06/15/20 21:00 07/01/20 20:04 Cetirizine HCl (ZyrTEC) 10 mg HS PO 06/15/20 21:00 07/01/20 20:05 Docusate Sodium (Colace) 100 mg PRN BID PRN PO CONSTIPATION 06/15/20 18:00 Multivit/Ca Carb/ B Cmplx/FA/Prenat (Nephro-Marilyn) 1 tab DAILY PO 06/16/20 09:00 07/01/20 09:43 Acetaminophen/ Hydrocodone Bitart (Lortab 7.5/325) 1 tab BID PO 06/15/20 21:00 07/01/20 20:07 Lorazepam (Ativan) 0.5 mg BID PO 06/15/20 21:00 06/26/20 18:20 DC 06/26/20 09:39 Al Hydroxide/Mg Hydroxide (Mylanta Plus Xs) 30 ml PRN DAILY PRN PO DYSPEPSIA 06/15/20 18:00 06/25/20 20:44 Al Hydroxide/Mg Hydroxide (Mylanta Plus Xs) 355 ml DAILY PO 06/16/20 09:00 UNV Quetiapine Fumarate (SEROquel) 25 mg HS PO 06/15/20 21:00 06/16/20 16:15 DC 06/15/20 20:09 Thiamine HCl (Vitamin B-1) 100 mg BID PO 06/15/20 21:00 07/01/20 20:04 Trazodone HCl (Desyrel) 100 mg BID PO 06/15/20 21:00 06/23/20 17:55 DC 06/23/20 07:54 Pantoprazole Sodium (Protonix) 40 mg DAILY PO 06/16/20 09:00 07/01/20 09:44 Olanzapine (ZyPREXA ZYDIS) 5 mg PRN Q2HR PRN PO PSYCHOSIS 06/15/20 18:00 06/21/20 20:03 Quetiapine Fumarate (SEROquel) 25 mg TIDAC PO 06/17/20 09:00 06/24/20 14:08 DC 06/24/20 11:37 Mirtazapine (Remeron) 7.5 mg QHS PO 06/16/20 21:00 06/18/20 20:59 DC 06/17/20 18:34 Sertraline HCl (Zoloft) 25 mg DAILY PO 06/19/20 09:00 06/21/20 09:00 DC 06/21/20 09:01 Mirtazapine (Remeron) 7.5 mg QHS PO 06/18/20 21:00 06/18/20 20:59 DC Mirtazapine (Remeron) 15 mg QHS PO 06/18/20 21:00 06/26/20 18:20 DC 06/25/20 20:43 Divalproex Sodium (Depakote Sprinkles) 250 mg 0900,2100 PO 06/19/20 21:00 07/01/20 20:05 Al Hydroxide/Mg Hydroxide (Mylanta Plus Xs) 30 ml 1X ONCE PO 06/20/20 16:00 06/20/20 16:02 DC 06/20/20 16:00 Sertraline HCl (Zoloft) 50 mg DAILY PO 06/22/20 09:00 07/01/20 09:44 Melatonin (Melatonin) 3 mg PRN QHS PRN PO INSOMNIA 06/20/20 18:30 06/23/20 23:37 Al Hydroxide/Mg Hydroxide (Mylanta Plus Xs) 30 ml DAILY08 PO 06/23/20 08:00 06/22/20 14:58 DC Al Hydroxide/Mg Hydroxide (Mylanta Plus Xs) 30 ml 0800,1300,1700 PO 06/22/20 15:00 07/01/20 17:32 Trazodone HCl (Desyrel) 200 mg HS PO 06/23/20 21:00 07/01/20 20:05 Quetiapine Fumarate (SEROquel) 25 mg DAILY PO 06/25/20 09:00 07/01/20 09:44 Quetiapine Fumarate (SEROquel) 75 mg QHS PO 06/24/20 21:00 07/01/20 20:04 Lorazepam (Ativan) 0.5 mg QHS PO 06/26/20 21:00 07/01/20 20:07 Amitriptyline HCl (Elavil) 25 mg QHS PO 06/26/20 21:00 06/27/20 18:48 DC 06/26/20 21:29 Amitriptyline HCl (Elavil) 50 mg QHS PO 06/27/20 21:00 07/01/20 20:05 I have reviewed the current psychotropics carefully including drug interactions. Risk benefit ratio favors no change other than as noted in my dictated progress note. Diagnosis: Problems: (1) Impulse control disorder, unspecified (2) Anxiety disorder, unspecified (3) Dementia, vascular, with depression (4) Dementia, vascular, with delusions (5) Dementia in Alzheimer's disease with depression (6) Dementia in Alzheimer's disease with delusions (7) Major neurocognitive disorder (8) Dementia associated with alcoholism with behavioral disturbance ARY PABLO MD Jul 01, 2020 21:06
--- NOTE | 2020-07-01 21:29 | PDOC ---
Exam Note: Srini Note: This note is a late entry for 06/29/2020 covers elements not covered in my initial note. Subjective: The patient was seen face to face in the evening of 06/29/2020 with Eloina LY, discussed and reviewed the chart. The patient slept just 3-3/4 hours previous night. He has done better, less anxious, remains confused, obsessed about discharge, was showing me his arm band. He was convinced I could let him be discharged this evening, nothing I could say or do would convince otherwise. He followed me around the unit. Review of Systems: No CV, , pulmonary, eye, ENT system symptoms on review. Mental Status Exam: The patient is oriented to himself and situation. Speech has some latency, coherent. Abstraction is fair. Computation impaired. Language function is intact. Mood and affect is improved. Laboratory Data: Reviewed. Impression: Major neurocognitive disorder Alzheimer vascular with delusion, depression, behavioral disturbance. Anxiety disorder unspecified. Impulse control disorder unspecified. Plan: No change from initial note. Assessment: Vital Signs/I&O: Vital Signs Date Time Temp Pulse Resp B/P (MAP) Pulse Ox O2 Delivery O2 Flow Rate FiO2 07/01/20 21:18 98 07/01/20 20:04 106 125/75 07/01/20 16:03 97.4 20 Room Air I & O 06/30/20 06/30/20 07/01/20 15:00 23:00 07:00 Intake Total 960 ml 480 ml 360 ml Balance 960 ml 480 ml 360 ml Labs: Laboratory Tests Test 07/01/20 08:45 White Blood Count 6.0 x10^3/uL (4.0-11.0) Red Blood Count 3.88 x10^6/uL (4.30-5.70) L Hemoglobin 10.2 g/dL (13.0-17.5) L Hematocrit 32.8 % (39.0-53.0) L Mean Corpuscular Volume 85 fL (79-100) Mean Corpuscular Hemoglobin 26 pg (25-35) Mean Corpuscular Hemoglobin Concent 31 g/dL (31-37) Red Cell Distribution Width 14.2 % (11.5-14.5) Platelet Count 267 x10^3/uL (140-400) Neutrophils (%) (Auto) 61 % (31-73) Lymphocytes (%) (Auto) 24 % (24-48) Monocytes (%) (Auto) 13 % (0-9) H Eosinophils (%) (Auto) 2 % (0-3) Basophils (%) (Auto) 1 % (0-3) Neutrophils # (Auto) 3.7 x10^3uL (1.8-7.7) Lymphocytes # (Auto) 1.4 x10^3/uL (1.0-4.8) Monocytes # (Auto) 0.8 x10^3/uL (0.0-1.1) Eosinophils # (Auto) 0.1 x10^3/uL (0.0-0.7) Basophils # (Auto) 0.1 x10^3/uL (0.0-0.2) Sodium Level 140 mmol/L (136-145) Potassium Level 3.9 mmol/L (3.5-5.1) Chloride Level 103 mmol/L (98-107) Carbon Dioxide Level 30 mmol/L (21-32) Anion Gap 7 (6-14) Blood Urea Nitrogen 13 mg/dL (8-26) Creatinine 0.8 mg/dL (0.7-1.3) Estimated GFR (Cockcroft-Gault) 116.3 BUN/Creatinine Ratio 16 (6-20) Glucose Level 77 mg/dL (70-99) Calcium Level 8.9 mg/dL (8.5-10.1) Total Bilirubin 0.2 mg/dL (0.2-1.0) Aspartate Amino Transferase (AST) 13 U/L (15-37) L Alanine Aminotransferase (ALT) 21 U/L (16-63) Alkaline Phosphatase 106 U/L (46-116) Total Protein 6.9 g/dL (6.4-8.2) Albumin 3.1 g/dL (3.4-5.0) L Albumin/Globulin Ratio 0.8 (1.0-1.7) L Current Medications: I have reviewed the current psychotropics carefully including drug interactions. Risk benefit ratio favors no change other than as noted in my dictated progress note. Diagnosis: Problems: (1) Impulse control disorder, unspecified (2) Anxiety disorder, unspecified (3) Dementia, vascular, with depression (4) Dementia, vascular, with delusions (5) Dementia in Alzheimer's disease with depression (6) Dementia in Alzheimer's disease with delusions (7) Major neurocognitive disorder (8) Dementia associated with alcoholism with behavioral disturbance ARY PABLO MD Jul 01, 2020 21:29
--- NOTE | 2020-07-01 21:29 | PDOC ---
Exam Note: Srini Note: Please also refer to the separate dictated note~for this date of service dictated separately.~Patient seen individually. Discussed the patient with Nursing staff reviewed the chart.~Reviewed interim history and current functioning. Reviewed vital signs,~Labs/ Radiology~and current medications noted below. Continue current treatment with the changes noted in the dictated addendum note Assessment: Vital Signs/I&O: Vital Signs Date Time Temp Pulse Resp B/P (MAP) Pulse Ox O2 Delivery O2 Flow Rate FiO2 07/01/20 21:18 98 07/01/20 20:04 106 125/75 07/01/20 16:03 97.4 20 Room Air I & O 06/30/20 06/30/20 07/01/20 15:00 23:00 07:00 Intake Total 960 ml 480 ml 360 ml Balance 960 ml 480 ml 360 ml Labs: Laboratory Tests Test 07/01/20 08:45 White Blood Count 6.0 x10^3/uL (4.0-11.0) Red Blood Count 3.88 x10^6/uL (4.30-5.70) L Hemoglobin 10.2 g/dL (13.0-17.5) L Hematocrit 32.8 % (39.0-53.0) L Mean Corpuscular Volume 85 fL (79-100) Mean Corpuscular Hemoglobin 26 pg (25-35) Mean Corpuscular Hemoglobin Concent 31 g/dL (31-37) Red Cell Distribution Width 14.2 % (11.5-14.5) Platelet Count 267 x10^3/uL (140-400) Neutrophils (%) (Auto) 61 % (31-73) Lymphocytes (%) (Auto) 24 % (24-48) Monocytes (%) (Auto) 13 % (0-9) H Eosinophils (%) (Auto) 2 % (0-3) Basophils (%) (Auto) 1 % (0-3) Neutrophils # (Auto) 3.7 x10^3uL (1.8-7.7) Lymphocytes # (Auto) 1.4 x10^3/uL (1.0-4.8) Monocytes # (Auto) 0.8 x10^3/uL (0.0-1.1) Eosinophils # (Auto) 0.1 x10^3/uL (0.0-0.7) Basophils # (Auto) 0.1 x10^3/uL (0.0-0.2) Sodium Level 140 mmol/L (136-145) Potassium Level 3.9 mmol/L (3.5-5.1) Chloride Level 103 mmol/L (98-107) Carbon Dioxide Level 30 mmol/L (21-32) Anion Gap 7 (6-14) Blood Urea Nitrogen 13 mg/dL (8-26) Creatinine 0.8 mg/dL (0.7-1.3) Estimated GFR (Cockcroft-Gault) 116.3 BUN/Creatinine Ratio 16 (6-20) Glucose Level 77 mg/dL (70-99) Calcium Level 8.9 mg/dL (8.5-10.1) Total Bilirubin 0.2 mg/dL (0.2-1.0) Aspartate Amino Transferase (AST) 13 U/L (15-37) L Alanine Aminotransferase (ALT) 21 U/L (16-63) Alkaline Phosphatase 106 U/L (46-116) Total Protein 6.9 g/dL (6.4-8.2) Albumin 3.1 g/dL (3.4-5.0) L Albumin/Globulin Ratio 0.8 (1.0-1.7) L Current Medications: I have reviewed the current psychotropics carefully including drug interactions. Risk benefit ratio favors no change other than as noted in my dictated progress note. Diagnosis: Problems: (1) Impulse control disorder, unspecified (2) Anxiety disorder, unspecified (3) Dementia, vascular, with depression (4) Dementia, vascular, with delusions (5) Dementia in Alzheimer's disease with depression (6) Dementia in Alzheimer's disease with delusions (7) Major neurocognitive disorder (8) Dementia associated with alcoholism with behavioral disturbance ARY PABLO MD Jul 01, 2020 21:29
--- NOTE | 2020-07-01 22:10 | NUR ---
Pt sitting calmly in hallway this evening conversing with peers. Compliant with whole medications. Pt talked with sister on the phone. After phone conversation, pt stated that he was leaving tomorrow.
[2020-07-02 06:04] VITALS: BP 102/64
[2020-07-02] MEDS: MAG HYDROX/AL HYDROX/SIMETH 30 ML ORAL.SUSP PO SCH ×3 (08:55→17:40)
[2020-07-02] MEDS: DIVALPROEX 125 MG CAP.SPRINK PO SCH ×2 (08:55→20:13)
[2020-07-02] MEDS: FOLIC/VIT B COMP W-C (RENAL) TABLET. PO SCH (08:55)
[2020-07-02] MEDS: THIAMINE 100 MG TABLET. PO SCH ×2 (08:56→20:13)
[2020-07-02] MEDS: amLODIPine BESYLATE 2.5 MG TABLET PO SCH ×2 (08:56→20:12)
[2020-07-02] MEDS: PANTOPRAZOLE 40 MG TABLET. PO SCH (08:56)
[2020-07-02] MEDS: QUEtiapine 25 MG TABLET. PO SCH ×2 (08:56→20:13)
[2020-07-02] MEDS: SERTRALINE 50 MG TABLET. PO SCH (08:56)
[2020-07-02] MEDS: HYDROcodone/APAP 7.5/325MG 1 TAB TABLET PO SCH ×2 (09:01→20:15)
--- NOTE | 2020-07-02 11:05 | NUR ---
Pt is calm, cooperative, and compliant. No agitation, no aggression, no hallucinations and no delusions noted. He is compliant with his medications and assessment. He is adamant about leaving today and frequently asks to meet with his aids social worker.
--- NOTE | 2020-07-02 11:56 | NUR ---
WEEKLY ACTIVITY THERAPY NOTE Date of Admission: 06/15/2020 Date of AT Assessment: 06/18 Precipitating behaviors that initiated intake and admission: agitation, paranoia Goal aimed: increase stress management and relaxation skills Initial Goal: Pt will participate in at least three Activity Therapy group sessions per week. Goal changed 06/25: Pt. will participate in at least one Activity Therapy group per day Weekly progress towards goal: achieved Group participation level: 4 min, 2 mod Weekly highlights: balloon bop, card sorting and ball pass Behaviors observed: pleasant, sleeps often during group, hyperverbal, pt did refuse to answer a question Thursday during W[facility] during group, more appropriate as the week has progressed Plan: no change to goal Beneficial adaptations:
[2020-07-02 16:05] VITALS: BP 125/79
--- NOTE | 2020-07-02 16:50 | NUR ---
GAVIN returned call to Ruth, pt sister/DPOA, to give her an update on all denials. Pt sister reports that [facility] has called her and SW discussed the fact that they typically don't take Medicaid right away. Pt has to be private pay for a while before they accept Medicaid. Pt sister asked SW to call them and see what options for placement are. GAVIN explained to pt sister that pt may have to discharge home, as pt insurance has sent a denial for continued stay. Unless SW can get a placement for approval and get pt moved; having him return home may be the only option. GAVIN will continue to keep Ruth up to date.
--- NOTE | 2020-07-02 16:59 | NUR ---
GAVIN attempted to contact Dulce at [facility] and ended up leaving a message asking for a returned call when possible re: admission.
[2020-07-02] MEDS: CETIRIZINE HCL 10 MG TABLET PO SCH (20:12)
[2020-07-02] MEDS: traZODone 100 MG TABLET. PO SCH (20:13)
[2020-07-02] MEDS: AMITRIPTYLINE HCL 50 MG TABLET PO SCH (20:13)
[2020-07-02] MEDS: LORazepam 0.5 MG TABLET PO SCH (20:15)
--- NOTE | 2020-07-02 21:10 | PDOC ---
Exam Note: Srini Note: This note is a late entry for 06/30/2020 covers elements not covered in my initial note. Subjective: The patient was seen face to face in the evening of 06/30/2020 with Lynda LY, discussed and reviewed the chart. The patient slept just 3-1/2 hours previous night. He is little more redirectable, still anxious, restless, forgetful, very limited insight into his cognition problems. Review of Systems: No CV, , pulmonary, eye, ENT system symptoms on review. Mental Status Exam: The patient is oriented to himself and situation. He was repetitive, hyperverbal that he had to leave to go pay bills and various other things he had to do. Speech has some latency, coherent. Abstraction is fair. Computation impaired. Language function is intact. Mood and affect is improved. No suicidal or homicidal ideation. Laboratory Data: Reviewed. Impression: Major neurocognitive disorder Alzheimer vascular with delusion, depression, behavioral disturbance. Anxiety disorder unspecified. Impulse control disorder unspecified. Plan: Continue current psychotropics including Depakote, Seroquel, trazodone, melatonin, amitriptyline for sleep which seems to be helping. Adjust further as clinically indicated. Assessment: Vital Signs/I&O: Vital Signs Date Time Temp Pulse Resp B/P (MAP) Pulse Ox O2 Delivery O2 Flow Rate FiO2 07/02/20 20:15 99 07/02/20 20:12 90 125/79 07/02/20 16:05 98.9 18 07/01/20 16:03 Room Air I & O 07/01/20 07/01/20 07/02/20 15:00 23:00 07:00 Intake Total 240 ml 1680 ml Balance 240 ml 1680 ml Current Medications: Meds: Current Medications Medications (Trade) Dose Ordered Sig/Jasmeet Route PRN Reason Start Time Stop Time Status Last Admin Dose Admin Acetaminophen (Tylenol) 650 mg PRN Q4HRS PRN PO MILD PAIN / TEMP > 100.3'F 06/15/20 18:00 06/26/20 15:15 Amlodipine Besylate (Norvasc) 2.5 mg BID PO 06/15/20 21:00 07/02/20 20:12 Cetirizine HCl (ZyrTEC) 10 mg HS PO 06/15/20 21:00 07/02/20 20:12 Docusate Sodium (Colace) 100 mg PRN BID PRN PO CONSTIPATION 06/15/20 18:00 Multivit/Ca Carb/ B Cmplx/FA/Prenat (Nephro-Marilyn) 1 tab DAILY PO 06/16/20 09:00 07/02/20 08:55 Acetaminophen/ Hydrocodone Bitart (Lortab 7.5/325) 1 tab BID PO 06/15/20 21:00 07/02/20 20:15 Lorazepam (Ativan) 0.5 mg BID PO 06/15/20 21:00 06/26/20 18:20 DC 06/26/20 09:39 Al Hydroxide/Mg Hydroxide (Mylanta Plus Xs) 30 ml PRN DAILY PRN PO DYSPEPSIA 06/15/20 18:00 06/25/20 20:44 Al Hydroxide/Mg Hydroxide (Mylanta Plus Xs) 355 ml DAILY PO 06/16/20 09:00 UNV Quetiapine Fumarate (SEROquel) 25 mg HS PO 06/15/20 21:00 06/16/20 16:15 DC 06/15/20 20:09 Thiamine HCl (Vitamin B-1) 100 mg BID PO 06/15/20 21:00 07/02/20 20:13 Trazodone HCl (Desyrel) 100 mg BID PO 06/15/20 21:00 06/23/20 17:55 DC 06/23/20 07:54 Pantoprazole Sodium (Protonix) 40 mg DAILY PO 06/16/20 09:00 07/02/20 08:56 Olanzapine (ZyPREXA ZYDIS) 5 mg PRN Q2HR PRN PO PSYCHOSIS 06/15/20 18:00 06/21/20 20:03 Quetiapine Fumarate (SEROquel) 25 mg TIDAC PO 06/17/20 09:00 06/24/20 14:08 DC 06/24/20 11:37 Mirtazapine (Remeron) 7.5 mg QHS PO 06/16/20 21:00 06/18/20 20:59 DC 06/17/20 18:34 Sertraline HCl (Zoloft) 25 mg DAILY PO 06/19/20 09:00 06/21/20 09:00 DC 06/21/20 09:01 Mirtazapine (Remeron) 7.5 mg QHS PO 06/18/20 21:00 06/18/20 20:59 DC Mirtazapine (Remeron) 15 mg QHS PO 06/18/20 21:00 06/26/20 18:20 DC 06/25/20 20:43 Divalproex Sodium (Depakote Sprinkles) 250 mg 0900,2100 PO 06/19/20 21:00 07/02/20 20:13 Al Hydroxide/Mg Hydroxide (Mylanta Plus Xs) 30 ml 1X ONCE PO 06/20/20 16:00 06/20/20 16:02 DC 06/20/20 16:00 Sertraline HCl (Zoloft) 50 mg DAILY PO 06/22/20 09:00 07/02/20 08:56 Melatonin (Melatonin) 3 mg PRN QHS PRN PO INSOMNIA 06/20/20 18:30 06/23/20 23:37 Al Hydroxide/Mg Hydroxide (Mylanta Plus Xs) 30 ml DAILY08 PO 06/23/20 08:00 06/22/20 14:58 DC Al Hydroxide/Mg Hydroxide (Mylanta Plus Xs) 30 ml 0800,1300,1700 PO 06/22/20 15:00 07/02/20 17:40 Trazodone HCl (Desyrel) 200 mg HS PO 06/23/20 21:00 07/02/20 20:13 Quetiapine Fumarate (SEROquel) 25 mg DAILY PO 06/25/20 09:00 07/02/20 08:56 Quetiapine Fumarate (SEROquel) 75 mg QHS PO 06/24/20 21:00 07/02/20 20:13 Lorazepam (Ativan) 0.5 mg QHS PO 06/26/20 21:00 07/02/20 20:15 Amitriptyline HCl (Elavil) 25 mg QHS PO 06/26/20 21:00 06/27/20 18:48 DC 06/26/20 21:29 Amitriptyline HCl (Elavil) 50 mg QHS PO 06/27/20 21:00 07/02/20 20:13 I have reviewed the current psychotropics carefully including drug interactions. Risk benefit ratio favors no change other than as noted in my dictated progress note. Diagnosis: Problems: (1) Impulse control disorder, unspecified (2) Anxiety disorder, unspecified (3) Dementia, vascular, with depression (4) Dementia, vascular, with delusions (5) Dementia in Alzheimer's disease with depression (6) Dementia in Alzheimer's disease with delusions (7) Major neurocognitive disorder (8) Dementia associated with alcoholism with behavioral disturbance ARY PABLO MD Jul 02, 2020 21:10
--- NOTE | 2020-07-02 21:35 | PDOC ---
Exam Note: Srini Note: This note is a late entry for 07/01/2020 covers elements not covered in my initial note. Subjective: The patient was seen face to face in the evening of 07/01/2020 with Lynda LY, discussed and reviewed the chart. The patient slept just 3 hours previous night. He was irritable last night, then done well during the day today. He is hyperverbal. As I met with him, he is again fixated about discharge and wants to go home. We will discuss with social service staff tomorrow. Review of Systems: No CV, , pulmonary, eye, ENT system symptoms on review. Mental Status Exam: The patient is oriented to himself and situation. He was hyperverbal. Speech has some latency, coherent. Abstraction is fair. Computation impaired. Language function is intact. Mood and affect is improved. Laboratory Data: Reviewed. Impression: Major neurocognitive disorder Alzheimer vascular with delusion, depression, behavioral disturbance. Anxiety disorder unspecified. Impulse control disorder unspecified. Plan: No change from initial note. Assessment: Vital Signs/I&O: Vital Signs Date Time Temp Pulse Resp B/P (MAP) Pulse Ox O2 Delivery O2 Flow Rate FiO2 07/02/20 20:15 99 07/02/20 20:12 90 125/79 07/02/20 16:05 98.9 18 07/01/20 16:03 Room Air I & O 07/01/20 07/01/20 07/02/20 15:00 23:00 07:00 Intake Total 240 ml 1680 ml Balance 240 ml 1680 ml Current Medications: Meds: Current Medications Medications (Trade) Dose Ordered Sig/Jasmeet Route PRN Reason Start Time Stop Time Status Last Admin Dose Admin Acetaminophen (Tylenol) 650 mg PRN Q4HRS PRN PO MILD PAIN / TEMP > 100.3'F 06/15/20 18:00 06/26/20 15:15 Amlodipine Besylate (Norvasc) 2.5 mg BID PO 06/15/20 21:00 07/02/20 20:12 Cetirizine HCl (ZyrTEC) 10 mg HS PO 06/15/20 21:00 07/02/20 20:12 Docusate Sodium (Colace) 100 mg PRN BID PRN PO CONSTIPATION 06/15/20 18:00 Multivit/Ca Carb/ B Cmplx/FA/Prenat (Nephro-Marilyn) 1 tab DAILY PO 06/16/20 09:00 07/02/20 08:55 Acetaminophen/ Hydrocodone Bitart (Lortab 7.5/325) 1 tab BID PO 06/15/20 21:00 07/02/20 20:15 Lorazepam (Ativan) 0.5 mg BID PO 06/15/20 21:00 06/26/20 18:20 DC 06/26/20 09:39 Al Hydroxide/Mg Hydroxide (Mylanta Plus Xs) 30 ml PRN DAILY PRN PO DYSPEPSIA 06/15/20 18:00 06/25/20 20:44 Al Hydroxide/Mg Hydroxide (Mylanta Plus Xs) 355 ml DAILY PO 06/16/20 09:00 UNV Quetiapine Fumarate (SEROquel) 25 mg HS PO 06/15/20 21:00 06/16/20 16:15 DC 06/15/20 20:09 Thiamine HCl (Vitamin B-1) 100 mg BID PO 06/15/20 21:00 07/02/20 20:13 Trazodone HCl (Desyrel) 100 mg BID PO 06/15/20 21:00 06/23/20 17:55 DC 06/23/20 07:54 Pantoprazole Sodium (Protonix) 40 mg DAILY PO 06/16/20 09:00 07/02/20 08:56 Olanzapine (ZyPREXA ZYDIS) 5 mg PRN Q2HR PRN PO PSYCHOSIS 06/15/20 18:00 06/21/20 20:03 Quetiapine Fumarate (SEROquel) 25 mg TIDAC PO 06/17/20 09:00 06/24/20 14:08 DC 06/24/20 11:37 Mirtazapine (Remeron) 7.5 mg QHS PO 06/16/20 21:00 06/18/20 20:59 DC 06/17/20 18:34 Sertraline HCl (Zoloft) 25 mg DAILY PO 06/19/20 09:00 06/21/20 09:00 DC 06/21/20 09:01 Mirtazapine (Remeron) 7.5 mg QHS PO 06/18/20 21:00 06/18/20 20:59 DC Mirtazapine (Remeron) 15 mg QHS PO 06/18/20 21:00 06/26/20 18:20 DC 06/25/20 20:43 Divalproex Sodium (Depakote Sprinkles) 250 mg 0900,2100 PO 06/19/20 21:00 07/02/20 20:13 Al Hydroxide/Mg Hydroxide (Mylanta Plus Xs) 30 ml 1X ONCE PO 06/20/20 16:00 06/20/20 16:02 DC 06/20/20 16:00 Sertraline HCl (Zoloft) 50 mg DAILY PO 06/22/20 09:00 07/02/20 08:56 Melatonin (Melatonin) 3 mg PRN QHS PRN PO INSOMNIA 06/20/20 18:30 06/23/20 23:37 Al Hydroxide/Mg Hydroxide (Mylanta Plus Xs) 30 ml DAILY08 PO 06/23/20 08:00 06/22/20 14:58 DC Al Hydroxide/Mg Hydroxide (Mylanta Plus Xs) 30 ml 0800,1300,1700 PO 06/22/20 15:00 07/02/20 17:40 Trazodone HCl (Desyrel) 200 mg HS PO 06/23/20 21:00 07/02/20 20:13 Quetiapine Fumarate (SEROquel) 25 mg DAILY PO 06/25/20 09:00 07/02/20 08:56 Quetiapine Fumarate (SEROquel) 75 mg QHS PO 06/24/20 21:00 07/02/20 20:13 Lorazepam (Ativan) 0.5 mg QHS PO 06/26/20 21:00 07/02/20 20:15 Amitriptyline HCl (Elavil) 25 mg QHS PO 06/26/20 21:00 06/27/20 18:48 DC 06/26/20 21:29 Amitriptyline HCl (Elavil) 50 mg QHS PO 06/27/20 21:00 07/02/20 20:13 I have reviewed the current psychotropics carefully including drug interactions. Risk benefit ratio favors no change other than as noted in my dictated progress note. Diagnosis: Problems: (1) Impulse control disorder, unspecified (2) Anxiety disorder, unspecified (3) Dementia, vascular, with depression (4) Dementia, vascular, with delusions (5) Dementia in Alzheimer's disease with depression (6) Dementia in Alzheimer's disease with delusions (7) Major neurocognitive disorder (8) Dementia associated with alcoholism with behavioral disturbance ARY PABLO MD Jul 02, 2020 21:35
--- NOTE | 2020-07-02 21:57 | PDOC ---
Exam Note: Srini Note: Please also refer to the separate dictated note~for this date of service dictated separately.~Patient seen individually. Discussed the patient with Nursing staff reviewed the chart.~Reviewed interim history and current functioning. Reviewed vital signs,~Labs/ Radiology~and current medications noted below. Continue current treatment with the changes noted in the dictated addendum note Assessment: Vital Signs/I&O: Vital Signs Date Time Temp Pulse Resp B/P (MAP) Pulse Ox O2 Delivery O2 Flow Rate FiO2 07/02/20 20:15 99 07/02/20 20:12 90 125/79 07/02/20 16:05 98.9 18 07/01/20 16:03 Room Air I & O 07/01/20 07/01/20 07/02/20 15:00 23:00 07:00 Intake Total 240 ml 1680 ml Balance 240 ml 1680 ml Current Medications: Meds: Current Medications Medications (Trade) Dose Ordered Sig/Jasmeet Route PRN Reason Start Time Stop Time Status Last Admin Dose Admin Acetaminophen (Tylenol) 650 mg PRN Q4HRS PRN PO MILD PAIN / TEMP > 100.3'F 06/15/20 18:00 06/26/20 15:15 Amlodipine Besylate (Norvasc) 2.5 mg BID PO 06/15/20 21:00 07/02/20 20:12 Cetirizine HCl (ZyrTEC) 10 mg HS PO 06/15/20 21:00 07/02/20 20:12 Docusate Sodium (Colace) 100 mg PRN BID PRN PO CONSTIPATION 06/15/20 18:00 Multivit/Ca Carb/ B Cmplx/FA/Prenat (Nephro-Marilyn) 1 tab DAILY PO 06/16/20 09:00 07/02/20 08:55 Acetaminophen/ Hydrocodone Bitart (Lortab 7.5/325) 1 tab BID PO 06/15/20 21:00 07/02/20 20:15 Lorazepam (Ativan) 0.5 mg BID PO 06/15/20 21:00 06/26/20 18:20 DC 06/26/20 09:39 Al Hydroxide/Mg Hydroxide (Mylanta Plus Xs) 30 ml PRN DAILY PRN PO DYSPEPSIA 06/15/20 18:00 06/25/20 20:44 Al Hydroxide/Mg Hydroxide (Mylanta Plus Xs) 355 ml DAILY PO 06/16/20 09:00 UNV Quetiapine Fumarate (SEROquel) 25 mg HS PO 06/15/20 21:00 06/16/20 16:15 DC 06/15/20 20:09 Thiamine HCl (Vitamin B-1) 100 mg BID PO 06/15/20 21:00 07/02/20 20:13 Trazodone HCl (Desyrel) 100 mg BID PO 06/15/20 21:00 06/23/20 17:55 DC 06/23/20 07:54 Pantoprazole Sodium (Protonix) 40 mg DAILY PO 06/16/20 09:00 07/02/20 08:56 Olanzapine (ZyPREXA ZYDIS) 5 mg PRN Q2HR PRN PO PSYCHOSIS 06/15/20 18:00 06/21/20 20:03 Quetiapine Fumarate (SEROquel) 25 mg TIDAC PO 06/17/20 09:00 06/24/20 14:08 DC 06/24/20 11:37 Mirtazapine (Remeron) 7.5 mg QHS PO 06/16/20 21:00 06/18/20 20:59 DC 06/17/20 18:34 Sertraline HCl (Zoloft) 25 mg DAILY PO 06/19/20 09:00 06/21/20 09:00 DC 06/21/20 09:01 Mirtazapine (Remeron) 7.5 mg QHS PO 06/18/20 21:00 06/18/20 20:59 DC Mirtazapine (Remeron) 15 mg QHS PO 06/18/20 21:00 06/26/20 18:20 DC 06/25/20 20:43 Divalproex Sodium (Depakote Sprinkles) 250 mg 0900,2100 PO 06/19/20 21:00 07/02/20 20:13 Al Hydroxide/Mg Hydroxide (Mylanta Plus Xs) 30 ml 1X ONCE PO 06/20/20 16:00 06/20/20 16:02 DC 06/20/20 16:00 Sertraline HCl (Zoloft) 50 mg DAILY PO 06/22/20 09:00 07/02/20 08:56 Melatonin (Melatonin) 3 mg PRN QHS PRN PO INSOMNIA 06/20/20 18:30 06/23/20 23:37 Al Hydroxide/Mg Hydroxide (Mylanta Plus Xs) 30 ml DAILY08 PO 06/23/20 08:00 06/22/20 14:58 DC Al Hydroxide/Mg Hydroxide (Mylanta Plus Xs) 30 ml 0800,1300,1700 PO 06/22/20 15:00 07/02/20 17:40 Trazodone HCl (Desyrel) 200 mg HS PO 06/23/20 21:00 07/02/20 20:13 Quetiapine Fumarate (SEROquel) 25 mg DAILY PO 06/25/20 09:00 07/02/20 08:56 Quetiapine Fumarate (SEROquel) 75 mg QHS PO 06/24/20 21:00 07/02/20 20:13 Lorazepam (Ativan) 0.5 mg QHS PO 06/26/20 21:00 07/02/20 20:15 Amitriptyline HCl (Elavil) 25 mg QHS PO 06/26/20 21:00 06/27/20 18:48 DC 06/26/20 21:29 Amitriptyline HCl (Elavil) 50 mg QHS PO 06/27/20 21:00 07/02/20 20:13 I have reviewed the current psychotropics carefully including drug interactions. Risk benefit ratio favors no change other than as noted in my dictated progress note. Diagnosis: Problems: (1) Impulse control disorder, unspecified (2) Anxiety disorder, unspecified (3) Dementia, vascular, with depression (4) Dementia, vascular, with delusions (5) Dementia in Alzheimer's disease with depression (6) Dementia in Alzheimer's disease with delusions (7) Major neurocognitive disorder (8) Dementia associated with alcoholism with behavioral disturbance ARY PABLO MD Jul 02, 2020 21:57
--- NOTE | 2020-07-02 22:50 | NUR ---
Pt stating that he is leaving tomorrow and is requesting to talk with community mental health social worker. Compliant with whole medications. Social with peers and staff.
[2020-07-03 06:06] VITALS: BP 113/71
[2020-07-03] MEDS: amLODIPine BESYLATE 2.5 MG TABLET PO SCH ×2 (07:39→19:59)
[2020-07-03] MEDS: MAG HYDROX/AL HYDROX/SIMETH 30 ML ORAL.SUSP PO SCH ×3 (07:39→16:45)
[2020-07-03] MEDS: PANTOPRAZOLE 40 MG TABLET. PO SCH (07:39)
[2020-07-03] MEDS: DIVALPROEX 125 MG CAP.SPRINK PO SCH ×2 (07:39→19:59)
[2020-07-03] MEDS: QUEtiapine 25 MG TABLET. PO SCH ×2 (07:40→19:58)
[2020-07-03] MEDS: SERTRALINE 50 MG TABLET. PO SCH (07:40)
[2020-07-03] MEDS: FOLIC/VIT B COMP W-C (RENAL) TABLET. PO SCH (07:43)
[2020-07-03] MEDS: THIAMINE 100 MG TABLET. PO SCH ×2 (07:43→19:58)
[2020-07-03] MEDS: HYDROcodone/APAP 7.5/325MG 1 TAB TABLET PO SCH ×2 (07:43→19:59)
--- NOTE | 2020-07-03 10:46 | NUR ---
Pt cooperative and complaint for the most part. In the morning he initially refused to take his scheduled medications d/t them being crushed and mixed with vanilla Ensure (per report sheet instructions). He attempted to debate and argue concerning the crushing of medications and stated he would not take them. This nurse briefly defended the purpose of safe medication administration and stated that he has the choice to refuse medications, however I won't debate him and I would let his SW know of his decision. Pt then agreed to take the medications. Pt has been absent of SI/HI behaviors, appropriate with his interactions with others. Absent of distraction/distress from possible VH/AH. Will pass on to the next shift.
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
[2020-07-03 16:04] VITALS: BP 134/76
--- NOTE | 2020-07-03 16:04 | NUR ---
GAVIN returned call to [facility] to discuss admission with a Medicaid recipient. Pt will have to be private pay for at least a year before being able to accept pt Medicaid, as GAVIN previously stated to pt sister. GAVIN will contact pt sister and let her know of this status.
[2020-07-03] MEDS: LORazepam 0.5 MG TABLET PO SCH (19:58)
[2020-07-03] MEDS: AMITRIPTYLINE HCL 50 MG TABLET PO SCH (19:58)
[2020-07-03] MEDS: MELATONIN 3 MG TABLET PO PRN (19:58)
[2020-07-03] MEDS: CETIRIZINE HCL 10 MG TABLET PO SCH (19:59)
[2020-07-03] MEDS: traZODone 100 MG TABLET. PO SCH (19:59)
--- NOTE | 2020-07-03 21:05 | PDOC ---
Exam Note: Srini Note: Please also refer to the separate dictated note~for this date of service dictated separately.~Patient seen individually. Discussed the patient with Nursing staff reviewed the chart.~Reviewed interim history and current functioning. Reviewed vital signs,~Labs/ Radiology~and current medications noted below. Continue current treatment with the changes noted in the dictated addendum note Assessment: Vital Signs/I&O: Vital Signs Date Time Temp Pulse Resp B/P (MAP) Pulse Ox O2 Delivery O2 Flow Rate FiO2 07/03/20 19:59 98 07/03/20 19:59 93 134/76 07/03/20 16:04 98.7 16 07/03/20 07:43 Room Air I & O 07/02/20 07/02/20 07/03/20 15:00 23:00 07:00 Intake Total 1020 ml 960 ml Balance 1020 ml 960 ml Current Medications: Meds: Current Medications Medications (Trade) Dose Ordered Sig/Jasmeet Route PRN Reason Start Time Stop Time Status Last Admin Dose Admin Acetaminophen (Tylenol) 650 mg PRN Q4HRS PRN PO MILD PAIN / TEMP > 100.3'F 06/15/20 18:00 06/26/20 15:15 Amlodipine Besylate (Norvasc) 2.5 mg BID PO 06/15/20 21:00 07/03/20 19:59 Cetirizine HCl (ZyrTEC) 10 mg HS PO 06/15/20 21:00 07/03/20 19:59 Docusate Sodium (Colace) 100 mg PRN BID PRN PO CONSTIPATION 06/15/20 18:00 Multivit/Ca Carb/ B Cmplx/FA/Prenat (Nephro-Marilyn) 1 tab DAILY PO 06/16/20 09:00 07/02/20 08:55 Acetaminophen/ Hydrocodone Bitart (Lortab 7.5/325) 1 tab BID PO 06/15/20 21:00 07/03/20 19:59 Lorazepam (Ativan) 0.5 mg BID PO 06/15/20 21:00 06/26/20 18:20 DC 06/26/20 09:39 Al Hydroxide/Mg Hydroxide (Mylanta Plus Xs) 30 ml PRN DAILY PRN PO DYSPEPSIA 06/15/20 18:00 06/25/20 20:44 Al Hydroxide/Mg Hydroxide (Mylanta Plus Xs) 355 ml DAILY PO 06/16/20 09:00 UNV Quetiapine Fumarate (SEROquel) 25 mg HS PO 06/15/20 21:00 06/16/20 16:15 DC 06/15/20 20:09 Thiamine HCl (Vitamin B-1) 100 mg BID PO 06/15/20 21:00 07/03/20 19:58 Trazodone HCl (Desyrel) 100 mg BID PO 06/15/20 21:00 06/23/20 17:55 DC 06/23/20 07:54 Pantoprazole Sodium (Protonix) 40 mg DAILY PO 06/16/20 09:00 07/03/20 07:39 Olanzapine (ZyPREXA ZYDIS) 5 mg PRN Q2HR PRN PO PSYCHOSIS 06/15/20 18:00 06/21/20 20:03 Quetiapine Fumarate (SEROquel) 25 mg TIDAC PO 06/17/20 09:00 06/24/20 14:08 DC 06/24/20 11:37 Mirtazapine (Remeron) 7.5 mg QHS PO 06/16/20 21:00 06/18/20 20:59 DC 06/17/20 18:34 Sertraline HCl (Zoloft) 25 mg DAILY PO 06/19/20 09:00 06/21/20 09:00 DC 06/21/20 09:01 Mirtazapine (Remeron) 7.5 mg QHS PO 06/18/20 21:00 06/18/20 20:59 DC Mirtazapine (Remeron) 15 mg QHS PO 06/18/20 21:00 06/26/20 18:20 DC 06/25/20 20:43 Divalproex Sodium (Depakote Sprinkles) 250 mg 0900,2100 PO 06/19/20 21:00 07/03/20 19:59 Al Hydroxide/Mg Hydroxide (Mylanta Plus Xs) 30 ml 1X ONCE PO 06/20/20 16:00 06/20/20 16:02 DC 06/20/20 16:00 Sertraline HCl (Zoloft) 50 mg DAILY PO 06/22/20 09:00 07/03/20 07:40 Melatonin (Melatonin) 3 mg PRN QHS PRN PO INSOMNIA 06/20/20 18:30 07/03/20 19:58 Al Hydroxide/Mg Hydroxide (Mylanta Plus Xs) 30 ml DAILY08 PO 06/23/20 08:00 06/22/20 14:58 DC Al Hydroxide/Mg Hydroxide (Mylanta Plus Xs) 30 ml 0800,1300,1700 PO 06/22/20 15:00 07/03/20 16:45 Trazodone HCl (Desyrel) 200 mg HS PO 06/23/20 21:00 07/03/20 19:59 Quetiapine Fumarate (SEROquel) 25 mg DAILY PO 06/25/20 09:00 07/03/20 07:40 Quetiapine Fumarate (SEROquel) 75 mg QHS PO 06/24/20 21:00 07/03/20 19:58 Lorazepam (Ativan) 0.5 mg QHS PO 06/26/20 21:00 07/03/20 19:58 Amitriptyline HCl (Elavil) 25 mg QHS PO 06/26/20 21:00 06/27/20 18:48 DC 06/26/20 21:29 Amitriptyline HCl (Elavil) 50 mg QHS PO 06/27/20 21:00 07/03/20 19:58 I have reviewed the current psychotropics carefully including drug interactions. Risk benefit ratio favors no change other than as noted in my dictated progress note. Diagnosis: Problems: (1) Impulse control disorder, unspecified (2) Anxiety disorder, unspecified (3) Dementia, vascular, with depression (4) Dementia, vascular, with delusions (5) Dementia in Alzheimer's disease with depression (6) Dementia in Alzheimer's disease with delusions (7) Major neurocognitive disorder (8) Dementia associated with alcoholism with behavioral disturbance ARY PABLO MD Jul 03, 2020 21:05
--- NOTE | 2020-07-03 22:25 | NUR ---
Pt sitting quietly in his room at shift change. Pt calm and interactive when approached. Pt cooperative with assessment and compliant with medications administered whole, no pocketing noted. Pt believes that he is taking too many medications and reported to me that when he leaves on Thursday that he will not be continuing all these meds and "I'm gonna drink me a Budweiser too".
[2020-07-04 06:10] VITALS: BP 133/78
[2020-07-04] MEDS: PANTOPRAZOLE 40 MG TABLET. PO SCH (07:58)
[2020-07-04] MEDS: MAG HYDROX/AL HYDROX/SIMETH 30 ML ORAL.SUSP PO SCH ×3 (07:58→16:57)
[2020-07-04] MEDS: QUEtiapine 25 MG TABLET. PO SCH ×2 (07:58→19:37)
[2020-07-04] MEDS: THIAMINE 100 MG TABLET. PO SCH ×2 (07:58→19:37)
[2020-07-04] MEDS: DIVALPROEX 125 MG CAP.SPRINK PO SCH ×2 (07:58→19:37)
[2020-07-04] MEDS: SERTRALINE 50 MG TABLET. PO SCH (07:58)
[2020-07-04] MEDS: amLODIPine BESYLATE 2.5 MG TABLET PO SCH ×2 (07:59→19:37)
[2020-07-04] MEDS: HYDROcodone/APAP 7.5/325MG 1 TAB TABLET PO SCH ×2 (08:01→19:38)
[2020-07-04] MEDS: FOLIC/VIT B COMP W-C (RENAL) TABLET. PO SCH (08:01)
--- NOTE | 2020-07-04 10:04 | PDOC ---
Exam Note: Srini Note: This note is a late entry for 07/02/2020 covers elements not covered in my initial note. Subjective: The patient was seen face to face in the evening of 07/02/2020 with Lynda LY, discussed and reviewed the chart. The patient slept just 6 hours previous night. He has been anxious, restless, confused, very limited insight into circumstances prompting admission, wanting to return home to assist her who was unable to take care of him. Review of Systems: No CV, , pulmonary, eye, ENT system symptoms on review. Mental Status Exam: The patient is oriented to himself and situation. He was hyperverbal. Speech has some latency, coherent. Abstraction is fair. Computation impaired. Language function is intact. Mood and affect is improved. Laboratory Data: Reviewed. Impression: Major neurocognitive disorder Alzheimer vascular with delusion, depression, behavioral disturbance. Anxiety disorder unspecified. Impulse control disorder unspecified. Plan: No change from initial note. Assessment: Vital Signs/I&O: Vital Signs Date Time Temp Pulse Resp B/P (MAP) Pulse Ox O2 Delivery O2 Flow Rate FiO2 07/04/20 09:29 22 Nasal Cannula 2.5 07/04/20 07:59 95 133/78 07/04/20 06:10 98.3 98 I & O 07/03/20 07/03/20 07/04/20 15:00 23:00 07:00 Intake Total 960 ml 840 ml Balance 960 ml 840 ml Current Medications: Meds: Current Medications Medications (Trade) Dose Ordered Sig/Jasmeet Route PRN Reason Start Time Stop Time Status Last Admin Dose Admin Acetaminophen (Tylenol) 650 mg PRN Q4HRS PRN PO MILD PAIN / TEMP > 100.3'F 06/15/20 18:00 06/26/20 15:15 Amlodipine Besylate (Norvasc) 2.5 mg BID PO 06/15/20 21:00 07/04/20 07:59 Cetirizine HCl (ZyrTEC) 10 mg HS PO 06/15/20 21:00 07/03/20 19:59 Docusate Sodium (Colace) 100 mg PRN BID PRN PO CONSTIPATION 06/15/20 18:00 Multivit/Ca Carb/ B Cmplx/FA/Prenat (Nephro-Marilyn) 1 tab DAILY PO 06/16/20 09:00 07/04/20 08:01 Acetaminophen/ Hydrocodone Bitart (Lortab 7.5/325) 1 tab BID PO 06/15/20 21:00 07/04/20 08:01 Lorazepam (Ativan) 0.5 mg BID PO 06/15/20 21:00 06/26/20 18:20 DC 06/26/20 09:39 Al Hydroxide/Mg Hydroxide (Mylanta Plus Xs) 30 ml PRN DAILY PRN PO DYSPEPSIA 06/15/20 18:00 06/25/20 20:44 Al Hydroxide/Mg Hydroxide (Mylanta Plus Xs) 355 ml DAILY PO 06/16/20 09:00 UNV Quetiapine Fumarate (SEROquel) 25 mg HS PO 06/15/20 21:00 06/16/20 16:15 DC 06/15/20 20:09 Thiamine HCl (Vitamin B-1) 100 mg BID PO 06/15/20 21:00 07/04/20 07:58 Trazodone HCl (Desyrel) 100 mg BID PO 06/15/20 21:00 06/23/20 17:55 DC 06/23/20 07:54 Pantoprazole Sodium (Protonix) 40 mg DAILY PO 06/16/20 09:00 07/04/20 07:58 Olanzapine (ZyPREXA ZYDIS) 5 mg PRN Q2HR PRN PO PSYCHOSIS 06/15/20 18:00 06/21/20 20:03 Quetiapine Fumarate (SEROquel) 25 mg TIDAC PO 06/17/20 09:00 06/24/20 14:08 DC 06/24/20 11:37 Mirtazapine (Remeron) 7.5 mg QHS PO 06/16/20 21:00 06/18/20 20:59 DC 06/17/20 18:34 Sertraline HCl (Zoloft) 25 mg DAILY PO 06/19/20 09:00 06/21/20 09:00 DC 06/21/20 09:01 Mirtazapine (Remeron) 7.5 mg QHS PO 06/18/20 21:00 06/18/20 20:59 DC Mirtazapine (Remeron) 15 mg QHS PO 06/18/20 21:00 06/26/20 18:20 DC 06/25/20 20:43 Divalproex Sodium (Depakote Sprinkles) 250 mg 0900,2100 PO 06/19/20 21:00 07/04/20 07:58 Al Hydroxide/Mg Hydroxide (Mylanta Plus Xs) 30 ml 1X ONCE PO 06/20/20 16:00 06/20/20 16:02 DC 06/20/20 16:00 Sertraline HCl (Zoloft) 50 mg DAILY PO 06/22/20 09:00 07/04/20 07:58 Melatonin (Melatonin) 3 mg PRN QHS PRN PO INSOMNIA 06/20/20 18:30 07/03/20 19:58 Al Hydroxide/Mg Hydroxide (Mylanta Plus Xs) 30 ml DAILY08 PO 06/23/20 08:00 06/22/20 14:58 DC Al Hydroxide/Mg Hydroxide (Mylanta Plus Xs) 30 ml 0800,1300,1700 PO 06/22/20 15:00 07/04/20 07:58 Trazodone HCl (Desyrel) 200 mg HS PO 06/23/20 21:00 07/03/20 19:59 Quetiapine Fumarate (SEROquel) 25 mg DAILY PO 06/25/20 09:00 07/04/20 07:58 Quetiapine Fumarate (SEROquel) 75 mg QHS PO 06/24/20 21:00 07/03/20 19:58 Lorazepam (Ativan) 0.5 mg QHS PO 06/26/20 21:00 07/03/20 19:58 Amitriptyline HCl (Elavil) 25 mg QHS PO 06/26/20 21:00 06/27/20 18:48 DC 06/26/20 21:29 Amitriptyline HCl (Elavil) 50 mg QHS PO 06/27/20 21:00 07/03/20 19:58 I have reviewed the current psychotropics carefully including drug interactions. Risk benefit ratio favors no change other than as noted in my dictated progress note. Diagnosis: Problems: (1) Impulse control disorder, unspecified (2) Anxiety disorder, unspecified (3) Dementia, vascular, with depression (4) Dementia, vascular, with delusions (5) Dementia in Alzheimer's disease with depression (6) Dementia in Alzheimer's disease with delusions (7) Major neurocognitive disorder (8) Dementia associated with alcoholism with behavioral disturbance ARY PABLO MD Jul 04, 2020 10:04
--- NOTE | 2020-07-04 10:29 | PDOC ---
Exam Note: Srini Note: This note is a late entry for 07/03/2020 covers elements not covered in my initial note. Subjective: The patient was seen face to face in the morning of 07/03/2020 for a treatment team meeting with Cassie Vazquez and Judy (social work coordinator), Krysten Schroeder and Lupe, activity therapy and Julia RN, discussed and reviewed the chart. The patient slept just 4-1/2 hours previous night. He has been less abrasive. He takes his medications crushed. Review of Systems: No CV, , pulmonary, eye, ENT system symptoms on review. Mental Status Exam: The patient is oriented to himself and situation. Speech is coherent, less pressured. Abstraction is fair. Computation impaired. Language function is intact. Mood and affect less anxious, labile. Laboratory Data: Reviewed. Impression: Major neurocognitive disorder Alzheimer vascular with delusion, depression, behavioral disturbance. Anxiety disorder unspecified. Impulse control disorder unspecified. Plan: No change from initial note. Assessment: Vital Signs/I&O: Vital Signs Date Time Temp Pulse Resp B/P (MAP) Pulse Ox O2 Delivery O2 Flow Rate FiO2 07/04/20 09:29 22 Nasal Cannula 2.5 07/04/20 07:59 95 133/78 07/04/20 06:10 98.3 98 I & O 07/03/20 07/03/20 07/04/20 15:00 23:00 07:00 Intake Total 960 ml 840 ml Balance 960 ml 840 ml Current Medications: Meds: Current Medications Medications (Trade) Dose Ordered Sig/Jasmeet Route PRN Reason Start Time Stop Time Status Last Admin Dose Admin Acetaminophen (Tylenol) 650 mg PRN Q4HRS PRN PO MILD PAIN / TEMP > 100.3'F 06/15/20 18:00 06/26/20 15:15 Amlodipine Besylate (Norvasc) 2.5 mg BID PO 06/15/20 21:00 07/04/20 07:59 Cetirizine HCl (ZyrTEC) 10 mg HS PO 06/15/20 21:00 07/03/20 19:59 Docusate Sodium (Colace) 100 mg PRN BID PRN PO CONSTIPATION 06/15/20 18:00 Multivit/Ca Carb/ B Cmplx/FA/Prenat (Nephro-Marilyn) 1 tab DAILY PO 06/16/20 09:00 07/04/20 08:01 Acetaminophen/ Hydrocodone Bitart (Lortab 7.5/325) 1 tab BID PO 06/15/20 21:00 07/04/20 08:01 Lorazepam (Ativan) 0.5 mg BID PO 06/15/20 21:00 06/26/20 18:20 DC 06/26/20 09:39 Al Hydroxide/Mg Hydroxide (Mylanta Plus Xs) 30 ml PRN DAILY PRN PO DYSPEPSIA 06/15/20 18:00 06/25/20 20:44 Al Hydroxide/Mg Hydroxide (Mylanta Plus Xs) 355 ml DAILY PO 06/16/20 09:00 UNV Quetiapine Fumarate (SEROquel) 25 mg HS PO 06/15/20 21:00 06/16/20 16:15 DC 06/15/20 20:09 Thiamine HCl (Vitamin B-1) 100 mg BID PO 06/15/20 21:00 07/04/20 07:58 Trazodone HCl (Desyrel) 100 mg BID PO 06/15/20 21:00 06/23/20 17:55 DC 06/23/20 07:54 Pantoprazole Sodium (Protonix) 40 mg DAILY PO 06/16/20 09:00 07/04/20 07:58 Olanzapine (ZyPREXA ZYDIS) 5 mg PRN Q2HR PRN PO PSYCHOSIS 06/15/20 18:00 06/21/20 20:03 Quetiapine Fumarate (SEROquel) 25 mg TIDAC PO 06/17/20 09:00 06/24/20 14:08 DC 06/24/20 11:37 Mirtazapine (Remeron) 7.5 mg QHS PO 06/16/20 21:00 06/18/20 20:59 DC 06/17/20 18:34 Sertraline HCl (Zoloft) 25 mg DAILY PO 06/19/20 09:00 06/21/20 09:00 DC 06/21/20 09:01 Mirtazapine (Remeron) 7.5 mg QHS PO 06/18/20 21:00 06/18/20 20:59 DC Mirtazapine (Remeron) 15 mg QHS PO 06/18/20 21:00 06/26/20 18:20 DC 06/25/20 20:43 Divalproex Sodium (Depakote Sprinkles) 250 mg 0900,2100 PO 06/19/20 21:00 07/04/20 07:58 Al Hydroxide/Mg Hydroxide (Mylanta Plus Xs) 30 ml 1X ONCE PO 06/20/20 16:00 06/20/20 16:02 DC 06/20/20 16:00 Sertraline HCl (Zoloft) 50 mg DAILY PO 06/22/20 09:00 07/04/20 07:58 Melatonin (Melatonin) 3 mg PRN QHS PRN PO INSOMNIA 06/20/20 18:30 07/03/20 19:58 Al Hydroxide/Mg Hydroxide (Mylanta Plus Xs) 30 ml DAILY08 PO 06/23/20 08:00 06/22/20 14:58 DC Al Hydroxide/Mg Hydroxide (Mylanta Plus Xs) 30 ml 0800,1300,1700 PO 06/22/20 15:00 07/04/20 07:58 Trazodone HCl (Desyrel) 200 mg HS PO 06/23/20 21:00 07/03/20 19:59 Quetiapine Fumarate (SEROquel) 25 mg DAILY PO 06/25/20 09:00 07/04/20 07:58 Quetiapine Fumarate (SEROquel) 75 mg QHS PO 06/24/20 21:00 07/03/20 19:58 Lorazepam (Ativan) 0.5 mg QHS PO 06/26/20 21:00 07/03/20 19:58 Amitriptyline HCl (Elavil) 25 mg QHS PO 06/26/20 21:00 06/27/20 18:48 DC 06/26/20 21:29 Amitriptyline HCl (Elavil) 50 mg QHS PO 06/27/20 21:00 07/03/20 19:58 I have reviewed the current psychotropics carefully including drug interactions. Risk benefit ratio favors no change other than as noted in my dictated progress note. Diagnosis: Problems: (1) Impulse control disorder, unspecified (2) Anxiety disorder, unspecified (3) Dementia, vascular, with depression (4) Dementia, vascular, with delusions (5) Dementia in Alzheimer's disease with depression (6) Dementia in Alzheimer's disease with delusions (7) Major neurocognitive disorder (8) Dementia associated with alcoholism with behavioral disturbance ARY PABLO MD Jul 04, 2020 10:29
--- NOTE | 2020-07-04 12:08 | NUR ---
Pt has been cooperative this shift, calm, med complaint. Pt has been absent of SI/HI behaviors, appropriate with his interactions with others. Absent of distraction/distress from possible VH/AH. Will pass on to the next shift.
[2020-07-04 15:36] VITALS: BP 120/78
[2020-07-04] MEDS: CETIRIZINE HCL 10 MG TABLET PO SCH (19:37)
[2020-07-04] MEDS: MELATONIN 3 MG TABLET PO PRN (19:37)
[2020-07-04] MEDS: traZODone 100 MG TABLET. PO SCH (19:37)
[2020-07-04] MEDS: AMITRIPTYLINE HCL 50 MG TABLET PO SCH (19:38)
[2020-07-04] MEDS: LORazepam 0.5 MG TABLET PO SCH (19:38)
--- NOTE | 2020-07-04 21:08 | PDOC ---
Exam Note: Srini Note: Please also refer to the separate dictated note~for this date of service dictated separately.~Patient seen individually. Discussed the patient with Nursing staff reviewed the chart.~Reviewed interim history and current functioning. Reviewed vital signs,~Labs/ Radiology~and current medications noted below. Continue current treatment with the changes noted in the dictated addendum note Assessment: Vital Signs/I&O: Vital Signs Date Time Temp Pulse Resp B/P (MAP) Pulse Ox O2 Delivery O2 Flow Rate FiO2 07/04/20 20:38 99 07/04/20 19:37 94 120/78 07/04/20 15:36 97.4 17 07/04/20 09:29 Nasal Cannula 2.5 I & O 07/03/20 07/03/20 07/04/20 14:59 22:59 06:59 Intake Total 960 ml 840 ml Balance 960 ml 840 ml Current Medications: Meds: Current Medications Medications (Trade) Dose Ordered Sig/Jasmeet Route PRN Reason Start Time Stop Time Status Last Admin Dose Admin Acetaminophen (Tylenol) 650 mg PRN Q4HRS PRN PO MILD PAIN / TEMP > 100.3'F 06/15/20 18:00 06/26/20 15:15 Amlodipine Besylate (Norvasc) 2.5 mg BID PO 06/15/20 21:00 07/04/20 19:37 Cetirizine HCl (ZyrTEC) 10 mg HS PO 06/15/20 21:00 07/04/20 19:37 Docusate Sodium (Colace) 100 mg PRN BID PRN PO CONSTIPATION 06/15/20 18:00 Multivit/Ca Carb/ B Cmplx/FA/Prenat (Nephro-Marilyn) 1 tab DAILY PO 06/16/20 09:00 07/04/20 08:01 Acetaminophen/ Hydrocodone Bitart (Lortab 7.5/325) 1 tab BID PO 06/15/20 21:00 07/04/20 19:38 Lorazepam (Ativan) 0.5 mg BID PO 06/15/20 21:00 06/26/20 18:20 DC 06/26/20 09:39 Al Hydroxide/Mg Hydroxide (Mylanta Plus Xs) 30 ml PRN DAILY PRN PO DYSPEPSIA 06/15/20 18:00 06/25/20 20:44 Al Hydroxide/Mg Hydroxide (Mylanta Plus Xs) 355 ml DAILY PO 06/16/20 09:00 UNV Quetiapine Fumarate (SEROquel) 25 mg HS PO 06/15/20 21:00 06/16/20 16:15 DC 06/15/20 20:09 Thiamine HCl (Vitamin B-1) 100 mg BID PO 06/15/20 21:00 07/04/20 19:37 Trazodone HCl (Desyrel) 100 mg BID PO 06/15/20 21:00 06/23/20 17:55 DC 06/23/20 07:54 Pantoprazole Sodium (Protonix) 40 mg DAILY PO 06/16/20 09:00 07/04/20 07:58 Olanzapine (ZyPREXA ZYDIS) 5 mg PRN Q2HR PRN PO PSYCHOSIS 06/15/20 18:00 06/21/20 20:03 Quetiapine Fumarate (SEROquel) 25 mg TIDAC PO 06/17/20 09:00 06/24/20 14:08 DC 06/24/20 11:37 Mirtazapine (Remeron) 7.5 mg QHS PO 06/16/20 21:00 06/18/20 20:59 DC 06/17/20 18:34 Sertraline HCl (Zoloft) 25 mg DAILY PO 06/19/20 09:00 06/21/20 09:00 DC 06/21/20 09:01 Mirtazapine (Remeron) 7.5 mg QHS PO 06/18/20 21:00 06/18/20 20:59 DC Mirtazapine (Remeron) 15 mg QHS PO 06/18/20 21:00 06/26/20 18:20 DC 06/25/20 20:43 Divalproex Sodium (Depakote Sprinkles) 250 mg 0900,2100 PO 06/19/20 21:00 07/04/20 19:37 Al Hydroxide/Mg Hydroxide (Mylanta Plus Xs) 30 ml 1X ONCE PO 06/20/20 16:00 06/20/20 16:02 DC 06/20/20 16:00 Sertraline HCl (Zoloft) 50 mg DAILY PO 06/22/20 09:00 07/04/20 07:58 Melatonin (Melatonin) 3 mg PRN QHS PRN PO INSOMNIA 06/20/20 18:30 07/04/20 19:37 Al Hydroxide/Mg Hydroxide (Mylanta Plus Xs) 30 ml DAILY08 PO 06/23/20 08:00 06/22/20 14:58 DC Al Hydroxide/Mg Hydroxide (Mylanta Plus Xs) 30 ml 0800,1300,1700 PO 06/22/20 15:00 07/04/20 16:57 Trazodone HCl (Desyrel) 200 mg HS PO 06/23/20 21:00 07/04/20 19:37 Quetiapine Fumarate (SEROquel) 25 mg DAILY PO 06/25/20 09:00 07/04/20 07:58 Quetiapine Fumarate (SEROquel) 75 mg QHS PO 06/24/20 21:00 07/04/20 19:37 Lorazepam (Ativan) 0.5 mg QHS PO 06/26/20 21:00 07/04/20 19:38 Amitriptyline HCl (Elavil) 25 mg QHS PO 06/26/20 21:00 06/27/20 18:48 DC 06/26/20 21:29 Amitriptyline HCl (Elavil) 50 mg QHS PO 06/27/20 21:00 07/04/20 19:38 I have reviewed the current psychotropics carefully including drug interactions. Risk benefit ratio favors no change other than as noted in my dictated progress note. Diagnosis: Problems: (1) Impulse control disorder, unspecified (2) Anxiety disorder, unspecified (3) Dementia, vascular, with depression (4) Dementia, vascular, with delusions (5) Dementia in Alzheimer's disease with depression (6) Dementia in Alzheimer's disease with delusions (7) Major neurocognitive disorder (8) Dementia associated with alcoholism with behavioral disturbance ARY PABLO MD Jul 04, 2020 21:08
--- NOTE | 2020-07-04 22:19 | NUR ---
Pt sitting in day room at shift change. Pt calm, cooperative, and interactive. Pt cooperative with assessment and compliant with medications administered whole, no evidence of pocketing pills. Vanilla ensure and tri crackers provided as requested.
[2020-07-05] MEDS: FOLIC/VIT B COMP W-C (RENAL) TABLET. PO SCH (07:27)
[2020-07-05] MEDS: DIVALPROEX 125 MG CAP.SPRINK PO SCH ×2 (07:27→19:39)
[2020-07-05] MEDS: MAG HYDROX/AL HYDROX/SIMETH 30 ML ORAL.SUSP PO SCH ×3 (07:27→17:31)
[2020-07-05] MEDS: THIAMINE 100 MG TABLET. PO SCH ×2 (07:28→19:39)
[2020-07-05] MEDS: SERTRALINE 50 MG TABLET. PO SCH (07:28)
[2020-07-05] MEDS: PANTOPRAZOLE 40 MG TABLET. PO SCH (07:28)
[2020-07-05] MEDS: HYDROcodone/APAP 7.5/325MG 1 TAB TABLET PO SCH ×2 (07:28→19:40)
[2020-07-05] MEDS: QUEtiapine 25 MG TABLET. PO SCH ×2 (07:29→19:39)
[2020-07-05] MEDS: amLODIPine BESYLATE 2.5 MG TABLET PO SCH ×2 (07:29→19:39)
--- NOTE | 2020-07-05 07:41 | PDOC ---
Exam Note: Srini Note: This note is a late entry for 07/04/2020 covers elements not covered in my initial note. Subjective: The patient was seen face to face in the evening of 07/04/2020 with Julia LY, discussed and reviewed the chart. The patient slept just 6-1/4 hours previous night. Overall he is compliant, still somewhat obsessed that he can live on his own, does not want to go to a nursing facility. I addressed this with him individually. Review of Systems: No CV, , pulmonary, eye, ENT system symptoms on review. Mental Status Exam: The patient is oriented to himself and situation. Speech is coherent, less pressured. Abstraction is fair. Computation impaired. Language function is intact. Mood and affect less anxious, labile. Laboratory Data: Reviewed. Impression: Major neurocognitive disorder Alzheimer vascular with delusion, depression, behavioral disturbance. Anxiety disorder unspecified. Impulse control disorder unspecified. Plan: No change from initial note. Assessment: Vital Signs/I&O: Vital Signs Date Time Temp Pulse Resp B/P (MAP) Pulse Ox O2 Delivery O2 Flow Rate FiO2 07/05/20 07:29 94 120/78 07/05/20 07:28 20 91 07/04/20 15:36 97.4 07/04/20 09:29 Nasal Cannula 2.5 I & O 07/04/20 07/04/20 07/05/20 15:00 23:00 07:00 Intake Total 840 ml 1140 ml Balance 840 ml 1140 ml Current Medications: Meds: Current Medications Medications (Trade) Dose Ordered Sig/Jasmeet Route PRN Reason Start Time Stop Time Status Last Admin Dose Admin Acetaminophen (Tylenol) 650 mg PRN Q4HRS PRN PO MILD PAIN / TEMP > 100.3'F 06/15/20 18:00 06/26/20 15:15 Amlodipine Besylate (Norvasc) 2.5 mg BID PO 06/15/20 21:00 07/05/20 07:29 Cetirizine HCl (ZyrTEC) 10 mg HS PO 06/15/20 21:00 07/04/20 19:37 Docusate Sodium (Colace) 100 mg PRN BID PRN PO CONSTIPATION 06/15/20 18:00 Multivit/Ca Carb/ B Cmplx/FA/Prenat (Nephro-Marilyn) 1 tab DAILY PO 06/16/20 09:00 07/05/20 07:27 Acetaminophen/ Hydrocodone Bitart (Lortab 7.5/325) 1 tab BID PO 06/15/20 21:00 07/05/20 07:28 Lorazepam (Ativan) 0.5 mg BID PO 06/15/20 21:00 06/26/20 18:20 DC 06/26/20 09:39 Al Hydroxide/Mg Hydroxide (Mylanta Plus Xs) 30 ml PRN DAILY PRN PO DYSPEPSIA 06/15/20 18:00 06/25/20 20:44 Al Hydroxide/Mg Hydroxide (Mylanta Plus Xs) 355 ml DAILY PO 06/16/20 09:00 UNV Quetiapine Fumarate (SEROquel) 25 mg HS PO 06/15/20 21:00 06/16/20 16:15 DC 06/15/20 20:09 Thiamine HCl (Vitamin B-1) 100 mg BID PO 06/15/20 21:00 07/05/20 07:28 Trazodone HCl (Desyrel) 100 mg BID PO 06/15/20 21:00 06/23/20 17:55 DC 06/23/20 07:54 Pantoprazole Sodium (Protonix) 40 mg DAILY PO 06/16/20 09:00 07/05/20 07:28 Olanzapine (ZyPREXA ZYDIS) 5 mg PRN Q2HR PRN PO PSYCHOSIS 06/15/20 18:00 06/21/20 20:03 Quetiapine Fumarate (SEROquel) 25 mg TIDAC PO 06/17/20 09:00 06/24/20 14:08 DC 06/24/20 11:37 Mirtazapine (Remeron) 7.5 mg QHS PO 06/16/20 21:00 06/18/20 20:59 DC 06/17/20 18:34 Sertraline HCl (Zoloft) 25 mg DAILY PO 06/19/20 09:00 06/21/20 09:00 DC 06/21/20 09:01 Mirtazapine (Remeron) 7.5 mg QHS PO 06/18/20 21:00 06/18/20 20:59 DC Mirtazapine (Remeron) 15 mg QHS PO 06/18/20 21:00 06/26/20 18:20 DC 06/25/20 20:43 Divalproex Sodium (Depakote Sprinkles) 250 mg 0900,2100 PO 06/19/20 21:00 07/05/20 07:27 Al Hydroxide/Mg Hydroxide (Mylanta Plus Xs) 30 ml 1X ONCE PO 06/20/20 16:00 06/20/20 16:02 DC 06/20/20 16:00 Sertraline HCl (Zoloft) 50 mg DAILY PO 06/22/20 09:00 07/05/20 07:28 Melatonin (Melatonin) 3 mg PRN QHS PRN PO INSOMNIA 06/20/20 18:30 07/04/20 19:37 Al Hydroxide/Mg Hydroxide (Mylanta Plus Xs) 30 ml DAILY08 PO 06/23/20 08:00 06/22/20 14:58 DC Al Hydroxide/Mg Hydroxide (Mylanta Plus Xs) 30 ml 0800,1300,1700 PO 06/22/20 15:00 07/05/20 07:27 Trazodone HCl (Desyrel) 200 mg HS PO 06/23/20 21:00 07/04/20 19:37 Quetiapine Fumarate (SEROquel) 25 mg DAILY PO 06/25/20 09:00 07/05/20 07:29 Quetiapine Fumarate (SEROquel) 75 mg QHS PO 06/24/20 21:00 07/04/20 19:37 Lorazepam (Ativan) 0.5 mg QHS PO 06/26/20 21:00 07/04/20 19:38 Amitriptyline HCl (Elavil) 25 mg QHS PO 06/26/20 21:00 06/27/20 18:48 DC 06/26/20 21:29 Amitriptyline HCl (Elavil) 50 mg QHS PO 06/27/20 21:00 07/04/20 19:38 I have reviewed the current psychotropics carefully including drug interactions. Risk benefit ratio favors no change other than as noted in my dictated progress note. Diagnosis: Problems: (1) Impulse control disorder, unspecified (2) Anxiety disorder, unspecified (3) Dementia, vascular, with depression (4) Dementia, vascular, with delusions (5) Dementia in Alzheimer's disease with depression (6) Dementia in Alzheimer's disease with delusions (7) Major neurocognitive disorder (8) Dementia associated with alcoholism with behavioral disturbance ARY PABLO MD Jul 05, 2020 07:41
--- NOTE | 2020-07-05 11:09 | NUR ---
Pt has been appropriate and complaint this shift with a brief episode of staff intervention. During morning snack time he attempted on 2 occasions to obtain/solomon multiple food items, which required staff intervention. He is complaint with medications and assessment, A&O to self and year only. Absent of SI/HI behaviors, appropriate with his interactions with others. Will pass on to the next shift.
--- NOTE | 2020-07-05 15:44 | NUR ---
GAVIN contacted pt sister/DPOA, Ruth, to discuss pt going to [facility] on Thursday. Ruth was not thrilled about pt going to [facility]; however, GAVIN explained that with [facility], they want out of pocket pay for the first year which is $3500 plus care fees for the first month before they are willing to accept Medicaid. In the event that pt cannot do this, they will have to look at LTC/Memory Care or pt will need to come home with community resources. Pt sister does not believe that pt will thrive in Memory Care or a "fci setting" stating that he "needs to be able to be allowed to get out from time to time and not being around those who aren't as active as he is". GAVIN reiterated with pt sister that pt needs to be moved [facility] and reminded her that she is currently going to be billed for the last 4 days as Medicaid sent a denial letter. Pt sister has a couple more places to call and will follow up with GAVIN tomorrow.
[2020-07-05 17:41] VITALS: BP 107/67
[2020-07-05] MEDS: MELATONIN 3 MG TABLET PO PRN (19:38)
[2020-07-05] MEDS: CETIRIZINE HCL 10 MG TABLET PO SCH (19:39)
[2020-07-05] MEDS: LORazepam 0.5 MG TABLET PO SCH (19:39)
[2020-07-05] MEDS: traZODone 100 MG TABLET. PO SCH (19:39)
[2020-07-05] MEDS: AMITRIPTYLINE HCL 50 MG TABLET PO SCH (19:39)
--- NOTE | 2020-07-05 21:06 | PDOC ---
Exam Note: Srini Note: Please also refer to the separate dictated note~for this date of service dictated separately.~Patient seen individually. Discussed the patient with Nursing staff reviewed the chart.~Reviewed interim history and current functioning. Reviewed vital signs,~Labs/ Radiology~and current medications noted below. Continue current treatment with the changes noted in the dictated addendum note Assessment: Vital Signs/I&O: Vital Signs Date Time Temp Pulse Resp B/P (MAP) Pulse Ox O2 Delivery O2 Flow Rate FiO2 07/05/20 20:40 99 07/05/20 19:39 90 107/67 07/05/20 17:41 99.1 16 07/04/20 09:29 Nasal Cannula 2.5 I & O 07/04/20 07/04/20 07/05/20 15:00 23:00 07:00 Intake Total 840 ml 1140 ml Balance 840 ml 1140 ml Current Medications: Meds: Current Medications Medications (Trade) Dose Ordered Sig/Jasmeet Route PRN Reason Start Time Stop Time Status Last Admin Dose Admin Acetaminophen (Tylenol) 650 mg PRN Q4HRS PRN PO MILD PAIN / TEMP > 100.3'F 06/15/20 18:00 06/26/20 15:15 Amlodipine Besylate (Norvasc) 2.5 mg BID PO 06/15/20 21:00 07/05/20 19:39 Cetirizine HCl (ZyrTEC) 10 mg HS PO 06/15/20 21:00 07/05/20 19:39 Docusate Sodium (Colace) 100 mg PRN BID PRN PO CONSTIPATION 06/15/20 18:00 Multivit/Ca Carb/ B Cmplx/FA/Prenat (Nephro-Marilyn) 1 tab DAILY PO 06/16/20 09:00 07/05/20 07:27 Acetaminophen/ Hydrocodone Bitart (Lortab 7.5/325) 1 tab BID PO 06/15/20 21:00 07/05/20 19:40 Lorazepam (Ativan) 0.5 mg BID PO 06/15/20 21:00 06/26/20 18:20 DC 06/26/20 09:39 Al Hydroxide/Mg Hydroxide (Mylanta Plus Xs) 30 ml PRN DAILY PRN PO DYSPEPSIA 06/15/20 18:00 06/25/20 20:44 Al Hydroxide/Mg Hydroxide (Mylanta Plus Xs) 355 ml DAILY PO 06/16/20 09:00 UNV Quetiapine Fumarate (SEROquel) 25 mg HS PO 06/15/20 21:00 06/16/20 16:15 DC 06/15/20 20:09 Thiamine HCl (Vitamin B-1) 100 mg BID PO 06/15/20 21:00 07/05/20 19:39 Trazodone HCl (Desyrel) 100 mg BID PO 06/15/20 21:00 06/23/20 17:55 DC 06/23/20 07:54 Pantoprazole Sodium (Protonix) 40 mg DAILY PO 06/16/20 09:00 07/05/20 07:28 Olanzapine (ZyPREXA ZYDIS) 5 mg PRN Q2HR PRN PO PSYCHOSIS 06/15/20 18:00 06/21/20 20:03 Quetiapine Fumarate (SEROquel) 25 mg TIDAC PO 06/17/20 09:00 06/24/20 14:08 DC 06/24/20 11:37 Mirtazapine (Remeron) 7.5 mg QHS PO 06/16/20 21:00 06/18/20 20:59 DC 06/17/20 18:34 Sertraline HCl (Zoloft) 25 mg DAILY PO 06/19/20 09:00 06/21/20 09:00 DC 06/21/20 09:01 Mirtazapine (Remeron) 7.5 mg QHS PO 06/18/20 21:00 06/18/20 20:59 DC Mirtazapine (Remeron) 15 mg QHS PO 06/18/20 21:00 06/26/20 18:20 DC 06/25/20 20:43 Divalproex Sodium (Depakote Sprinkles) 250 mg 0900,2100 PO 06/19/20 21:00 07/05/20 19:39 Al Hydroxide/Mg Hydroxide (Mylanta Plus Xs) 30 ml 1X ONCE PO 06/20/20 16:00 06/20/20 16:02 DC 06/20/20 16:00 Sertraline HCl (Zoloft) 50 mg DAILY PO 06/22/20 09:00 07/05/20 07:28 Melatonin (Melatonin) 3 mg PRN QHS PRN PO INSOMNIA 06/20/20 18:30 07/05/20 19:38 Al Hydroxide/Mg Hydroxide (Mylanta Plus Xs) 30 ml DAILY08 PO 06/23/20 08:00 06/22/20 14:58 DC Al Hydroxide/Mg Hydroxide (Mylanta Plus Xs) 30 ml 0800,1300,1700 PO 06/22/20 15:00 07/05/20 17:31 Trazodone HCl (Desyrel) 200 mg HS PO 06/23/20 21:00 07/05/20 19:39 Quetiapine Fumarate (SEROquel) 25 mg DAILY PO 06/25/20 09:00 07/05/20 07:29 Quetiapine Fumarate (SEROquel) 75 mg QHS PO 06/24/20 21:00 07/05/20 19:39 Lorazepam (Ativan) 0.5 mg QHS PO 06/26/20 21:00 07/05/20 19:39 Amitriptyline HCl (Elavil) 25 mg QHS PO 06/26/20 21:00 06/27/20 18:48 DC 06/26/20 21:29 Amitriptyline HCl (Elavil) 50 mg QHS PO 06/27/20 21:00 07/05/20 19:39 I have reviewed the current psychotropics carefully including drug interactions. Risk benefit ratio favors no change other than as noted in my dictated progress note. Diagnosis: Problems: (1) Impulse control disorder, unspecified (2) Anxiety disorder, unspecified (3) Dementia, vascular, with depression (4) Dementia, vascular, with delusions (5) Dementia in Alzheimer's disease with depression (6) Dementia in Alzheimer's disease with delusions (7) Major neurocognitive disorder (8) Dementia associated with alcoholism with behavioral disturbance ARY PABLO MD Jul 05, 2020 21:06
[2020-07-06 06:00] VITALS: BP 95/57
[2020-07-06] MEDS: DIVALPROEX 125 MG CAP.SPRINK PO SCH ×2 (08:00→20:02)
[2020-07-06] MEDS: PANTOPRAZOLE 40 MG TABLET. PO SCH (08:01)
[2020-07-06] MEDS: THIAMINE 100 MG TABLET. PO SCH ×2 (08:01→20:02)
[2020-07-06] MEDS: QUEtiapine 25 MG TABLET. PO SCH ×2 (08:01→20:02)
[2020-07-06] MEDS: SERTRALINE 50 MG TABLET. PO SCH (08:02)
[2020-07-06] MEDS: FOLIC/VIT B COMP W-C (RENAL) TABLET. PO SCH (08:02)
[2020-07-06] MEDS: amLODIPine BESYLATE 2.5 MG TABLET PO SCH ×2 (08:02→20:00)
[2020-07-06] MEDS: MAG HYDROX/AL HYDROX/SIMETH 30 ML ORAL.SUSP PO SCH ×3 (08:03→17:05)
[2020-07-06] MEDS: HYDROcodone/APAP 7.5/325MG 1 TAB TABLET PO SCH ×2 (08:04→20:00)
--- NOTE | 2020-07-06 08:05 | PDOC ---
Exam Note: Srini Note: This note is a late entry for 07/05/2020 covers elements not covered in my initial note. Subjective: The patient was seen individually in the evening of 07/05/2020 with Julia LY, discussed and reviewed the chart. The patient slept just 5-3/4 hours previous night. He is compliant with medications at night. He was fairly appropriate in the morning, hoarding food around lunchtime. Review of Systems: No CV, , pulmonary, eye, ENT system symptoms on review. Mental Status Exam: The patient is oriented to himself and situation. Speech is coherent, less pressured. Abstraction is fair. Computation impaired. Language function is intact. Mood and affect less anxious, labile. Laboratory Data: Reviewed. Impression: Major neurocognitive disorder Alzheimer vascular with delusion, depression, behavioral disturbance. Anxiety disorder unspecified. Impulse control disorder unspecified. Plan: No change from initial note. Assessment: Vital Signs/I&O: Vital Signs Date Time Temp Pulse Resp B/P (MAP) Pulse Ox O2 Delivery O2 Flow Rate FiO2 07/06/20 08:02 84 95/57 07/06/20 06:00 98.6 18 97 07/04/20 09:29 Nasal Cannula 2.5 I & O 07/05/20 07/05/20 07/06/20 15:00 23:00 07:00 Intake Total 560 ml 480 ml Balance 560 ml 480 ml Current Medications: Meds: Current Medications Medications (Trade) Dose Ordered Sig/Jasmeet Route PRN Reason Start Time Stop Time Status Last Admin Dose Admin Acetaminophen (Tylenol) 650 mg PRN Q4HRS PRN PO MILD PAIN / TEMP > 100.3'F 06/15/20 18:00 06/26/20 15:15 Amlodipine Besylate (Norvasc) 2.5 mg BID PO 06/15/20 21:00 07/05/20 19:39 Cetirizine HCl (ZyrTEC) 10 mg HS PO 06/15/20 21:00 07/05/20 19:39 Docusate Sodium (Colace) 100 mg PRN BID PRN PO CONSTIPATION 06/15/20 18:00 Multivit/Ca Carb/ B Cmplx/FA/Prenat (Nephro-Marilyn) 1 tab DAILY PO 06/16/20 09:00 07/06/20 08:02 Acetaminophen/ Hydrocodone Bitart (Lortab 7.5/325) 1 tab BID PO 06/15/20 21:00 07/05/20 19:40 Lorazepam (Ativan) 0.5 mg BID PO 06/15/20 21:00 06/26/20 18:20 DC 06/26/20 09:39 Al Hydroxide/Mg Hydroxide (Mylanta Plus Xs) 30 ml PRN DAILY PRN PO DYSPEPSIA 06/15/20 18:00 06/25/20 20:44 Al Hydroxide/Mg Hydroxide (Mylanta Plus Xs) 355 ml DAILY PO 06/16/20 09:00 UNV Quetiapine Fumarate (SEROquel) 25 mg HS PO 06/15/20 21:00 06/16/20 16:15 DC 06/15/20 20:09 Thiamine HCl (Vitamin B-1) 100 mg BID PO 06/15/20 21:00 07/06/20 08:01 Trazodone HCl (Desyrel) 100 mg BID PO 06/15/20 21:00 06/23/20 17:55 DC 06/23/20 07:54 Pantoprazole Sodium (Protonix) 40 mg DAILY PO 06/16/20 09:00 07/06/20 08:01 Olanzapine (ZyPREXA ZYDIS) 5 mg PRN Q2HR PRN PO PSYCHOSIS 06/15/20 18:00 06/21/20 20:03 Quetiapine Fumarate (SEROquel) 25 mg TIDAC PO 06/17/20 09:00 06/24/20 14:08 DC 06/24/20 11:37 Mirtazapine (Remeron) 7.5 mg QHS PO 06/16/20 21:00 06/18/20 20:59 DC 06/17/20 18:34 Sertraline HCl (Zoloft) 25 mg DAILY PO 06/19/20 09:00 06/21/20 09:00 DC 06/21/20 09:01 Mirtazapine (Remeron) 7.5 mg QHS PO 06/18/20 21:00 06/18/20 20:59 DC Mirtazapine (Remeron) 15 mg QHS PO 06/18/20 21:00 06/26/20 18:20 DC 06/25/20 20:43 Divalproex Sodium (Depakote Sprinkles) 250 mg 0900,2100 PO 06/19/20 21:00 07/06/20 08:00 Al Hydroxide/Mg Hydroxide (Mylanta Plus Xs) 30 ml 1X ONCE PO 06/20/20 16:00 06/20/20 16:02 DC 06/20/20 16:00 Sertraline HCl (Zoloft) 50 mg DAILY PO 06/22/20 09:00 07/06/20 08:02 Melatonin (Melatonin) 3 mg PRN QHS PRN PO INSOMNIA 06/20/20 18:30 07/05/20 19:38 Al Hydroxide/Mg Hydroxide (Mylanta Plus Xs) 30 ml DAILY08 PO 06/23/20 08:00 06/22/20 14:58 DC Al Hydroxide/Mg Hydroxide (Mylanta Plus Xs) 30 ml 0800,1300,1700 PO 06/22/20 15:00 07/05/20 17:31 Trazodone HCl (Desyrel) 200 mg HS PO 06/23/20 21:00 07/05/20 19:39 Quetiapine Fumarate (SEROquel) 25 mg DAILY PO 06/25/20 09:00 07/06/20 08:01 Quetiapine Fumarate (SEROquel) 75 mg QHS PO 06/24/20 21:00 07/05/20 19:39 Lorazepam (Ativan) 0.5 mg QHS PO 06/26/20 21:00 07/05/20 19:39 Amitriptyline HCl (Elavil) 25 mg QHS PO 06/26/20 21:00 06/27/20 18:48 DC 06/26/20 21:29 Amitriptyline HCl (Elavil) 50 mg QHS PO 06/27/20 21:00 07/05/20 19:39 I have reviewed the current psychotropics carefully including drug interactions. Risk benefit ratio favors no change other than as noted in my dictated progress note. Diagnosis: Problems: (1) Impulse control disorder, unspecified (2) Anxiety disorder, unspecified (3) Dementia, vascular, with depression (4) Dementia, vascular, with delusions (5) Dementia in Alzheimer's disease with depression (6) Dementia in Alzheimer's disease with delusions (7) Major neurocognitive disorder (8) Dementia associated with alcoholism with behavioral disturbance ARY PABLO MD Jul 06, 2020 08:05
--- NOTE | 2020-07-06 11:52 | NUR ---
GAVIN returned call to pt Ruth meyer about not liking their options as they all want money up front and pt does not have the money to pay for EFE. The family refuses to place pt in a detention or a Memory Care setting. SW will plan to have pt transported via Medicaid to his sister's house in which pt would then stay with his brother until they can figure out an "appropriate Medicaid placement" to their standard. Pt sister continued to request Thursday for discharge, to prevent potential for pt to have trouble over the weekend. GAVIN will call Medicaid to set up transport time and get back to [place]. GAVIN will also set up at least a nurse to aid in medication set up and a primary care follow-up as pt will only get a 30 day refill.
--- NOTE | 2020-07-06 12:34 | NUR ---
[facility] Social Work Discharge Planning Form Patient Name ABHI PAGAN Admit Date: 15 June 2020 DISCHARGE PLAN Discharge Destination: Pt to discharge home with family. Care Assessment: N/A Level II Assessment: N/A Transportation: Medicaid transport is scheduled to pick pt up at 10:00 Special Instructions/Notes: Please fax discharge orders, discharge medication and discharge orders to the fax number listed below. DISCHARGE TO HOME: Address: [address] [place] [address], [facility] [address]; [place] [address] Responsible [employer]: Ruth Burt Pharmacy: [facility] Contact Information: [address] [facility] [place]: [place], [place] [address] Psychiatrist/Mental Health Follow Up: [facility] -- walk in clinic and crisis center if needed Contact Information: [address] [place] [address], [place] [address] Primary Care Follow Up: Dr. Rudy Royal Contact Information: [address] [facility], [place] [address] Appointment: Friday, July 10, 2020
[2020-07-06 16:19] VITALS: BP 112/71
--- NOTE | 2020-07-06 16:44 | NUR ---
Pt has been up adl to meals and groups. Pleasant and compliant with meds and cares. Very social.
[2020-07-06] MEDS: LORazepam 0.5 MG TABLET PO SCH (19:59)
[2020-07-06] MEDS: AMITRIPTYLINE HCL 50 MG TABLET PO SCH (20:00)
[2020-07-06] MEDS: CETIRIZINE HCL 10 MG TABLET PO SCH (20:01)
[2020-07-06] MEDS: traZODone 100 MG TABLET. PO SCH (20:01)
--- NOTE | 2020-07-06 20:55 | PDOC ---
Exam Note: Srini Note: Please also refer to the separate dictated note~for this date of service dictated separately.~Patient seen individually. Discussed the patient with Nursing staff reviewed the chart.~Reviewed interim history and current functioning. Reviewed vital signs,~Labs/ Radiology~and current medications noted below. Continue current treatment with the changes noted in the dictated addendum note Assessment: Vital Signs/I&O: Vital Signs Date Time Temp Pulse Resp B/P (MAP) Pulse Ox O2 Delivery O2 Flow Rate FiO2 07/06/20 20:00 99 07/06/20 20:00 91 112/71 07/06/20 16:19 98.8 16 Room Air 07/04/20 09:29 2.5 I & O 07/05/20 07/05/20 07/06/20 15:00 23:00 07:00 Intake Total 560 ml 480 ml Balance 560 ml 480 ml Current Medications: Meds: Current Medications Medications (Trade) Dose Ordered Sig/Jasmeet Route PRN Reason Start Time Stop Time Status Last Admin Dose Admin Acetaminophen (Tylenol) 650 mg PRN Q4HRS PRN PO MILD PAIN / TEMP > 100.3'F 06/15/20 18:00 06/26/20 15:15 Amlodipine Besylate (Norvasc) 2.5 mg BID PO 06/15/20 21:00 07/06/20 20:00 Cetirizine HCl (ZyrTEC) 10 mg HS PO 06/15/20 21:00 07/06/20 20:01 Docusate Sodium (Colace) 100 mg PRN BID PRN PO CONSTIPATION 06/15/20 18:00 Multivit/Ca Carb/ B Cmplx/FA/Prenat (Nephro-Marilyn) 1 tab DAILY PO 06/16/20 09:00 07/06/20 08:02 Acetaminophen/ Hydrocodone Bitart (Lortab 7.5/325) 1 tab BID PO 06/15/20 21:00 07/06/20 20:00 Lorazepam (Ativan) 0.5 mg BID PO 06/15/20 21:00 06/26/20 18:20 DC 06/26/20 09:39 Al Hydroxide/Mg Hydroxide (Mylanta Plus Xs) 30 ml PRN DAILY PRN PO DYSPEPSIA 06/15/20 18:00 06/25/20 20:44 Al Hydroxide/Mg Hydroxide (Mylanta Plus Xs) 355 ml DAILY PO 06/16/20 09:00 UNV Quetiapine Fumarate (SEROquel) 25 mg HS PO 06/15/20 21:00 06/16/20 16:15 DC 06/15/20 20:09 Thiamine HCl (Vitamin B-1) 100 mg BID PO 06/15/20 21:00 07/06/20 20:02 Trazodone HCl (Desyrel) 100 mg BID PO 06/15/20 21:00 06/23/20 17:55 DC 06/23/20 07:54 Pantoprazole Sodium (Protonix) 40 mg DAILY PO 06/16/20 09:00 07/06/20 08:01 Olanzapine (ZyPREXA ZYDIS) 5 mg PRN Q2HR PRN PO PSYCHOSIS 06/15/20 18:00 06/21/20 20:03 Quetiapine Fumarate (SEROquel) 25 mg TIDAC PO 06/17/20 09:00 06/24/20 14:08 DC 06/24/20 11:37 Mirtazapine (Remeron) 7.5 mg QHS PO 06/16/20 21:00 06/18/20 20:59 DC 06/17/20 18:34 Sertraline HCl (Zoloft) 25 mg DAILY PO 06/19/20 09:00 06/21/20 09:00 DC 06/21/20 09:01 Mirtazapine (Remeron) 7.5 mg QHS PO 06/18/20 21:00 06/18/20 20:59 DC Mirtazapine (Remeron) 15 mg QHS PO 06/18/20 21:00 06/26/20 18:20 DC 06/25/20 20:43 Divalproex Sodium (Depakote Sprinkles) 250 mg 0900,2100 PO 06/19/20 21:00 07/06/20 20:02 Al Hydroxide/Mg Hydroxide (Mylanta Plus Xs) 30 ml 1X ONCE PO 06/20/20 16:00 06/20/20 16:02 DC 06/20/20 16:00 Sertraline HCl (Zoloft) 50 mg DAILY PO 06/22/20 09:00 07/06/20 08:02 Melatonin (Melatonin) 3 mg PRN QHS PRN PO INSOMNIA 06/20/20 18:30 07/05/20 19:38 Al Hydroxide/Mg Hydroxide (Mylanta Plus Xs) 30 ml DAILY08 PO 06/23/20 08:00 06/22/20 14:58 DC Al Hydroxide/Mg Hydroxide (Mylanta Plus Xs) 30 ml 0800,1300,1700 PO 06/22/20 15:00 07/06/20 17:05 Trazodone HCl (Desyrel) 200 mg HS PO 06/23/20 21:00 07/06/20 20:01 Quetiapine Fumarate (SEROquel) 25 mg DAILY PO 06/25/20 09:00 07/06/20 08:01 Quetiapine Fumarate (SEROquel) 75 mg QHS PO 06/24/20 21:00 07/06/20 20:02 Lorazepam (Ativan) 0.5 mg QHS PO 06/26/20 21:00 07/06/20 19:59 Amitriptyline HCl (Elavil) 25 mg QHS PO 06/26/20 21:00 06/27/20 18:48 DC 06/26/20 21:29 Amitriptyline HCl (Elavil) 50 mg QHS PO 06/27/20 21:00 07/06/20 20:00 I have reviewed the current psychotropics carefully including drug interactions. Risk benefit ratio favors no change other than as noted in my dictated progress note. Diagnosis: Problems: (1) Impulse control disorder, unspecified (2) Anxiety disorder, unspecified (3) Dementia, vascular, with depression (4) Dementia, vascular, with delusions (5) Dementia in Alzheimer's disease with depression (6) Dementia in Alzheimer's disease with delusions (7) Major neurocognitive disorder (8) Dementia associated with alcoholism with behavioral disturbance ARY PABLO MD Jul 06, 2020 20:55
--- NOTE | 2020-07-06 23:45 | NUR ---
Patient is sitting outside the [facility] nurses station on assumption of care, socializing with a peer. He is in pleasant spirits. Looking forward to discharging home. No agitation. Denies any pain or discomfort. He appear to be sleeping comfortably at present time. Will continue to monitor.
[2020-07-07 06:16] VITALS: BP 110/64
[2020-07-07] MEDS: amLODIPine BESYLATE 2.5 MG TABLET PO SCH ×2 (08:35→19:41)
[2020-07-07] MEDS: FOLIC/VIT B COMP W-C (RENAL) TABLET. PO SCH (08:35)
[2020-07-07] MEDS: MAG HYDROX/AL HYDROX/SIMETH 30 ML ORAL.SUSP PO SCH ×3 (08:35→17:18)
[2020-07-07] MEDS: PANTOPRAZOLE 40 MG TABLET. PO SCH (08:35)
[2020-07-07] MEDS: QUEtiapine 25 MG TABLET. PO SCH ×2 (08:35→19:38)
[2020-07-07] MEDS: THIAMINE 100 MG TABLET. PO SCH ×2 (08:35→19:39)
[2020-07-07] MEDS: DIVALPROEX 125 MG CAP.SPRINK PO SCH ×2 (08:35→19:40)
[2020-07-07] MEDS: SERTRALINE 50 MG TABLET. PO SCH (08:35)
[2020-07-07] MEDS: HYDROcodone/APAP 7.5/325MG 1 TAB TABLET PO SCH ×2 (08:37→19:40)
[2020-07-07 16:17] VITALS: BP 131/84
--- NOTE | 2020-07-07 18:53 | NUR ---
Pt up adl to meals and out to day room. Compliant with meds and cares.
[2020-07-07] MEDS: LORazepam 0.5 MG TABLET PO SCH (19:40)
[2020-07-07] MEDS: CETIRIZINE HCL 10 MG TABLET PO SCH (19:41)
[2020-07-07] MEDS: AMITRIPTYLINE HCL 50 MG TABLET PO SCH (19:41)
[2020-07-07] MEDS: traZODone 100 MG TABLET. PO SCH (19:42)
--- NOTE | 2020-07-07 21:37 | PDOC ---
Exam Note: Srini Note: Please also refer to the separate dictated note~for this date of service dictated separately.~Patient seen individually. Discussed the patient with Nursing staff reviewed the chart.~Reviewed interim history and current functioning. Reviewed vital signs,~Labs/ Radiology~and current medications noted below. Continue current treatment with the changes noted in the dictated addendum note Assessment: Vital Signs/I&O: Vital Signs Date Time Temp Pulse Resp B/P (MAP) Pulse Ox O2 Delivery O2 Flow Rate FiO2 07/07/20 19:41 101 131/84 07/07/20 19:40 98 07/07/20 16:17 97.9 17 07/07/20 06:16 Room Air 07/04/20 09:29 2.5 I & O 07/06/20 07/06/20 07/07/20 15:00 23:00 07:00 Intake Total 600 ml 360 ml 240 ml Balance 600 ml 360 ml 240 ml Current Medications: Meds: Current Medications Medications (Trade) Dose Ordered Sig/Jasmeet Route PRN Reason Start Time Stop Time Status Last Admin Dose Admin Acetaminophen (Tylenol) 650 mg PRN Q4HRS PRN PO MILD PAIN / TEMP > 100.3'F 06/15/20 18:00 06/26/20 15:15 Amlodipine Besylate (Norvasc) 2.5 mg BID PO 06/15/20 21:00 07/07/20 19:41 Cetirizine HCl (ZyrTEC) 10 mg HS PO 06/15/20 21:00 07/07/20 19:41 Docusate Sodium (Colace) 100 mg PRN BID PRN PO CONSTIPATION 06/15/20 18:00 Multivit/Ca Carb/ B Cmplx/FA/Prenat (Nephro-Marilyn) 1 tab DAILY PO 06/16/20 09:00 07/07/20 08:35 Acetaminophen/ Hydrocodone Bitart (Lortab 7.5/325) 1 tab BID PO 06/15/20 21:00 07/07/20 19:40 Lorazepam (Ativan) 0.5 mg BID PO 06/15/20 21:00 06/26/20 18:20 DC 06/26/20 09:39 Al Hydroxide/Mg Hydroxide (Mylanta Plus Xs) 30 ml PRN DAILY PRN PO DYSPEPSIA 06/15/20 18:00 06/25/20 20:44 Al Hydroxide/Mg Hydroxide (Mylanta Plus Xs) 355 ml DAILY PO 06/16/20 09:00 UNV Quetiapine Fumarate (SEROquel) 25 mg HS PO 06/15/20 21:00 06/16/20 16:15 DC 06/15/20 20:09 Thiamine HCl (Vitamin B-1) 100 mg BID PO 06/15/20 21:00 07/07/20 19:39 Trazodone HCl (Desyrel) 100 mg BID PO 06/15/20 21:00 06/23/20 17:55 DC 06/23/20 07:54 Pantoprazole Sodium (Protonix) 40 mg DAILY PO 06/16/20 09:00 07/07/20 08:35 Olanzapine (ZyPREXA ZYDIS) 5 mg PRN Q2HR PRN PO PSYCHOSIS 06/15/20 18:00 06/21/20 20:03 Quetiapine Fumarate (SEROquel) 25 mg TIDAC PO 06/17/20 09:00 06/24/20 14:08 DC 06/24/20 11:37 Mirtazapine (Remeron) 7.5 mg QHS PO 06/16/20 21:00 06/18/20 20:59 DC 06/17/20 18:34 Sertraline HCl (Zoloft) 25 mg DAILY PO 06/19/20 09:00 06/21/20 09:00 DC 06/21/20 09:01 Mirtazapine (Remeron) 7.5 mg QHS PO 06/18/20 21:00 06/18/20 20:59 DC Mirtazapine (Remeron) 15 mg QHS PO 06/18/20 21:00 06/26/20 18:20 DC 06/25/20 20:43 Divalproex Sodium (Depakote Sprinkles) 250 mg 0900,2100 PO 06/19/20 21:00 07/07/20 19:40 Al Hydroxide/Mg Hydroxide (Mylanta Plus Xs) 30 ml 1X ONCE PO 06/20/20 16:00 06/20/20 16:02 DC 06/20/20 16:00 Sertraline HCl (Zoloft) 50 mg DAILY PO 06/22/20 09:00 07/07/20 08:35 Melatonin (Melatonin) 3 mg PRN QHS PRN PO INSOMNIA 06/20/20 18:30 07/05/20 19:38 Al Hydroxide/Mg Hydroxide (Mylanta Plus Xs) 30 ml DAILY08 PO 06/23/20 08:00 06/22/20 14:58 DC Al Hydroxide/Mg Hydroxide (Mylanta Plus Xs) 30 ml 0800,1300,1700 PO 06/22/20 15:00 07/07/20 17:18 Trazodone HCl (Desyrel) 200 mg HS PO 06/23/20 21:00 07/07/20 19:42 Quetiapine Fumarate (SEROquel) 25 mg DAILY PO 06/25/20 09:00 07/07/20 08:35 Quetiapine Fumarate (SEROquel) 75 mg QHS PO 06/24/20 21:00 07/07/20 19:38 Lorazepam (Ativan) 0.5 mg QHS PO 06/26/20 21:00 07/07/20 19:40 Amitriptyline HCl (Elavil) 25 mg QHS PO 06/26/20 21:00 06/27/20 18:48 DC 06/26/20 21:29 Amitriptyline HCl (Elavil) 50 mg QHS PO 06/27/20 21:00 07/07/20 19:41 I have reviewed the current psychotropics carefully including drug interactions. Risk benefit ratio favors no change other than as noted in my dictated progress note. Diagnosis: Problems: (1) Impulse control disorder, unspecified (2) Anxiety disorder, unspecified (3) Dementia, vascular, with depression (4) Dementia, vascular, with delusions (5) Dementia in Alzheimer's disease with depression (6) Dementia in Alzheimer's disease with delusions (7) Major neurocognitive disorder (8) Dementia associated with alcoholism with behavioral disturbance ARY PABLO MD Jul 07, 2020 21:37
--- NOTE | 2020-07-07 21:53 | NUR ---
Patient is in the day room on assumption of care, watching a movie with his peers. He is in pleasant spirits. Looking forward to discharging home. No agitation. Denies any pain or discomfort. He appear to be sleeping comfortably at present time. Will continue to monitor.
[2020-07-08 06:38] VITALS: BP 133/91
[2020-07-08 06:54] LABS: BASO # 0.1 x10^3/uL (0.0-0.2); BASO % 1 % (0-3); EOS # 0.2 x10^3/uL (0.0-0.7); EOS % 3 % (0-3); HEMOGLOBIN 9.5 g/dL (13.0-17.5); LYMPH # 1.6 x10^3/uL (1.0-4.8); LYMPH % 26 % (24-48); MEAN CORPUSCULAR HEMOGLOBIN 27 pg (25-35); MEAN CORPUSCULAR HGB CONC 32 g/dL (31-37); MEAN CORPUSCULAR VOLUME 84 fL (79-100); MONO # 0.8 x10^3/uL (0.0-1.1); MONO % 14 % (0-9); NEUT # 3.4 x10^3uL (1.8-7.7); NEUT % 56 % (31-73); PLATELET COUNT 219 x10^3/uL (140-400); RED BLOOD COUNT 3.56 x10^6/uL (4.30-5.70); RED CELL DISTRIBUTION WIDTH 14.1 % (11.5-14.5); WHITE BLOOD COUNT 6.1 x10^3/uL (4.0-11.0)
[2020-07-08 07:08] LABS: ALBUMIN/GLOBULIN RATIO 0.9 (1.0-1.7); CALCIUM 8.5 mg/dL (8.5-10.1); CREATININE 0.9 mg/dL (0.7-1.3); GFR 101.5; POTASSIUM 4.2 mmol/L (3.5-5.1); TOTAL BILIRUBIN 0.2 mg/dL (0.2-1.0); TOTAL PROTEIN 6.5 g/dL (6.4-8.2)
--- NOTE | 2020-07-08 07:45 | PDOC ---
Exam Note: Srini Note: This note is a late entry for 07/06/2020 covers elements not covered in my initial note. Subjective: The patient was seen individually in the evening of 07/06/2020 with Hayley LY, discussed and reviewed the chart. The patient slept just 5-3/4 hours previous night. He remains confused, but less anxious, restless, less agitated. He is pleasant, smiling as I met with him. He is pleased with discharge plans. He has discussed with Cassie Vazquez, manager social services. Review of Systems: No CV, , pulmonary, eye system symptoms on review. Mental Status Exam: The patient is oriented to himself and situation. Speech is coherent, less pressured. Abstraction is fair. Computation impaired. Language function is intact. Mood and affect less anxious. Laboratory Data: Reviewed. Impression: Major neurocognitive disorder Alzheimer vascular with delusion, depression, behavioral disturbance. Anxiety disorder unspecified. Impulse control disorder unspecified. Plan: No change from initial note. Assessment: Vital Signs/I&O: Vital Signs Date Time Temp Pulse Resp B/P (MAP) Pulse Ox O2 Delivery O2 Flow Rate FiO2 07/08/20 06:38 97.6 78 20 133/91 (105) 93 Room Air 07/04/20 09:29 2.5 I & O 07/07/20 07/07/20 07/08/20 15:00 23:00 07:00 Intake Total 1080 ml 720 ml Balance 1080 ml 720 ml Labs: Laboratory Tests Test 07/08/20 06:37 White Blood Count 6.1 x10^3/uL (4.0-11.0) Red Blood Count 3.56 x10^6/uL (4.30-5.70) L Hemoglobin 9.5 g/dL (13.0-17.5) L Hematocrit 30.0 % (39.0-53.0) L Mean Corpuscular Volume 84 fL (79-100) Mean Corpuscular Hemoglobin 27 pg (25-35) Mean Corpuscular Hemoglobin Concent 32 g/dL (31-37) Red Cell Distribution Width 14.1 % (11.5-14.5) Platelet Count 219 x10^3/uL (140-400) Neutrophils (%) (Auto) 56 % (31-73) Lymphocytes (%) (Auto) 26 % (24-48) Monocytes (%) (Auto) 14 % (0-9) H Eosinophils (%) (Auto) 3 % (0-3) Basophils (%) (Auto) 1 % (0-3) Neutrophils # (Auto) 3.4 x10^3uL (1.8-7.7) Lymphocytes # (Auto) 1.6 x10^3/uL (1.0-4.8) Monocytes # (Auto) 0.8 x10^3/uL (0.0-1.1) Eosinophils # (Auto) 0.2 x10^3/uL (0.0-0.7) Basophils # (Auto) 0.1 x10^3/uL (0.0-0.2) Sodium Level 142 mmol/L (136-145) Potassium Level 4.2 mmol/L (3.5-5.1) Chloride Level 104 mmol/L (98-107) Carbon Dioxide Level 31 mmol/L (21-32) Anion Gap 7 (6-14) Blood Urea Nitrogen 14 mg/dL (8-26) Creatinine 0.9 mg/dL (0.7-1.3) Estimated GFR (Cockcroft-Gault) 101.5 BUN/Creatinine Ratio 16 (6-20) Glucose Level 75 mg/dL (70-99) Calcium Level 8.5 mg/dL (8.5-10.1) Total Bilirubin 0.2 mg/dL (0.2-1.0) Aspartate Amino Transferase (AST) 11 U/L (15-37) L Alanine Aminotransferase (ALT) 18 U/L (16-63) Alkaline Phosphatase 99 U/L (46-116) Total Protein 6.5 g/dL (6.4-8.2) Albumin 3.0 g/dL (3.4-5.0) L Albumin/Globulin Ratio 0.9 (1.0-1.7) L Current Medications: Meds: Laboratory Tests Test 07/08/20 06:37 White Blood Count 6.1 x10^3/uL Red Blood Count 3.56 x10^6/uL Hemoglobin 9.5 g/dL Hematocrit 30.0 % Mean Corpuscular Volume 84 fL Mean Corpuscular Hemoglobin 27 pg Mean Corpuscular Hemoglobin Concent 32 g/dL Red Cell Distribution Width 14.1 % Platelet Count 219 x10^3/uL Neutrophils (%) (Auto) 56 % Lymphocytes (%) (Auto) 26 % Monocytes (%) (Auto) 14 % Eosinophils (%) (Auto) 3 % Basophils (%) (Auto) 1 % Neutrophils # (Auto) 3.4 x10^3uL Lymphocytes # (Auto) 1.6 x10^3/uL Monocytes # (Auto) 0.8 x10^3/uL Eosinophils # (Auto) 0.2 x10^3/uL Basophils # (Auto) 0.1 x10^3/uL Sodium Level 142 mmol/L Potassium Level 4.2 mmol/L Chloride Level 104 mmol/L Carbon Dioxide Level 31 mmol/L Anion Gap 7 Blood Urea Nitrogen 14 mg/dL Creatinine 0.9 mg/dL Estimated GFR (Cockcroft-Gault) 101.5 BUN/Creatinine Ratio 16 Glucose Level 75 mg/dL Calcium Level 8.5 mg/dL Total Bilirubin 0.2 mg/dL Aspartate Amino Transf (AST/SGOT) 11 U/L Alanine Aminotransferase (ALT/SGPT) 18 U/L Alkaline Phosphatase 99 U/L Total Protein 6.5 g/dL Albumin 3.0 g/dL Albumin/Globulin Ratio 0.9 Current Medications Medications (Trade) Dose Ordered Sig/Jasmeet Route PRN Reason Start Time Stop Time Status Last Admin Dose Admin Acetaminophen (Tylenol) 650 mg PRN Q4HRS PRN PO MILD PAIN / TEMP > 100.3'F 06/15/20 18:00 06/26/20 15:15 Amlodipine Besylate (Norvasc) 2.5 mg BID PO 06/15/20 21:00 07/07/20 19:41 Cetirizine HCl (ZyrTEC) 10 mg HS PO 06/15/20 21:00 07/07/20 19:41 Docusate Sodium (Colace) 100 mg PRN BID PRN PO CONSTIPATION 06/15/20 18:00 Multivit/Ca Carb/ B Cmplx/FA/Prenat (Nephro-Marilyn) 1 tab DAILY PO 06/16/20 09:00 07/07/20 08:35 Acetaminophen/ Hydrocodone Bitart (Lortab 7.5/325) 1 tab BID PO 06/15/20 21:00 07/07/20 19:40 Lorazepam (Ativan) 0.5 mg BID PO 06/15/20 21:00 06/26/20 18:20 DC 06/26/20 09:39 Al Hydroxide/Mg Hydroxide (Mylanta Plus Xs) 30 ml PRN DAILY PRN PO DYSPEPSIA 06/15/20 18:00 06/25/20 20:44 Al Hydroxide/Mg Hydroxide (Mylanta Plus Xs) 355 ml DAILY PO 06/16/20 09:00 UNV Quetiapine Fumarate (SEROquel) 25 mg HS PO 06/15/20 21:00 06/16/20 16:15 DC 06/15/20 20:09 Thiamine HCl (Vitamin B-1) 100 mg BID PO 06/15/20 21:00 07/07/20 19:39 Trazodone HCl (Desyrel) 100 mg BID PO 06/15/20 21:00 06/23/20 17:55 DC 06/23/20 07:54 Pantoprazole Sodium (Protonix) 40 mg DAILY PO 06/16/20 09:00 07/07/20 08:35 Olanzapine (ZyPREXA ZYDIS) 5 mg PRN Q2HR PRN PO PSYCHOSIS 06/15/20 18:00 06/21/20 20:03 Quetiapine Fumarate (SEROquel) 25 mg TIDAC PO 06/17/20 09:00 06/24/20 14:08 DC 06/24/20 11:37 Mirtazapine (Remeron) 7.5 mg QHS PO 06/16/20 21:00 06/18/20 20:59 DC 06/17/20 18:34 Sertraline HCl (Zoloft) 25 mg DAILY PO 06/19/20 09:00 06/21/20 09:00 DC 06/21/20 09:01 Mirtazapine (Remeron) 7.5 mg QHS PO 06/18/20 21:00 06/18/20 20:59 DC Mirtazapine (Remeron) 15 mg QHS PO 06/18/20 21:00 06/26/20 18:20 DC 06/25/20 20:43 Divalproex Sodium (Depakote Sprinkles) 250 mg 0900,2100 PO 06/19/20 21:00 07/07/20 19:40 Al Hydroxide/Mg Hydroxide (Mylanta Plus Xs) 30 ml 1X ONCE PO 06/20/20 16:00 06/20/20 16:02 DC 06/20/20 16:00 Sertraline HCl (Zoloft) 50 mg DAILY PO 06/22/20 09:00 07/07/20 08:35 Melatonin (Melatonin) 3 mg PRN QHS PRN PO INSOMNIA 06/20/20 18:30 07/05/20 19:38 Al Hydroxide/Mg Hydroxide (Mylanta Plus Xs) 30 ml DAILY08 PO 06/23/20 08:00 06/22/20 14:58 DC Al Hydroxide/Mg Hydroxide (Mylanta Plus Xs) 30 ml 0800,1300,1700 PO 06/22/20 15:00 07/07/20 17:18 Trazodone HCl (Desyrel) 200 mg HS PO 06/23/20 21:00 07/07/20 19:42 Quetiapine Fumarate (SEROquel) 25 mg DAILY PO 06/25/20 09:00 07/07/20 08:35 Quetiapine Fumarate (SEROquel) 75 mg QHS PO 06/24/20 21:00 07/07/20 19:38 Lorazepam (Ativan) 0.5 mg QHS PO 06/26/20 21:00 07/07/20 19:40 Amitriptyline HCl (Elavil) 25 mg QHS PO 06/26/20 21:00 06/27/20 18:48 DC 06/26/20 21:29 Amitriptyline HCl (Elavil) 50 mg QHS PO 06/27/20 21:00 07/07/20 19:41 I have reviewed the current psychotropics carefully including drug interactions. Risk benefit ratio favors no change other than as noted in my dictated progress note. Diagnosis: Problems: (1) Impulse control disorder, unspecified (2) Anxiety disorder, unspecified (3) Dementia, vascular, with depression (4) Dementia, vascular, with delusions (5) Dementia in Alzheimer's disease with depression (6) Dementia in Alzheimer's disease with delusions (7) Major neurocognitive disorder (8) Dementia associated with alcoholism with behavioral disturbance ARY PABLO MD Jul 08, 2020 07:45
[2020-07-08] MEDS: PANTOPRAZOLE 40 MG TABLET. PO SCH (08:00)
[2020-07-08] MEDS: DIVALPROEX 125 MG CAP.SPRINK PO SCH ×2 (08:00→19:33)
[2020-07-08] MEDS: QUEtiapine 25 MG TABLET. PO SCH ×2 (08:00→19:33)
[2020-07-08] MEDS: SERTRALINE 50 MG TABLET. PO SCH (08:00)
[2020-07-08] MEDS: amLODIPine BESYLATE 2.5 MG TABLET PO SCH ×2 (08:00→19:35)
[2020-07-08] MEDS: THIAMINE 100 MG TABLET. PO SCH ×2 (08:00→19:33)
[2020-07-08] MEDS: MAG HYDROX/AL HYDROX/SIMETH 30 ML ORAL.SUSP PO SCH ×3 (08:01→17:13)
[2020-07-08] MEDS: HYDROcodone/APAP 7.5/325MG 1 TAB TABLET PO SCH ×2 (08:02→19:34)
--- NOTE | 2020-07-08 08:02 | PDOC ---
Exam Note: Srini Note: This note is a late entry for 07/07/2020 covers elements not covered in my initial note. Subjective: The patient was seen individually in the evening of 07/07/2020 with Hayley LY, discussed and reviewed the chart. The patient slept just 5-3/4 hours previous night. Overall he is doing reasonably well. He remains confused. Review of Systems: No CV, , pulmonary, eye, ENT system symptoms on review. Mental Status Exam: The patient is oriented to himself and situation. Speech is coherent, less pressured. Abstraction is fair. Computation impaired. Language function is intact. Mood and affect less anxious, confused. Laboratory Data: Reviewed. Impression: Major neurocognitive disorder Alzheimer vascular with delusion, depression, behavioral disturbance. Anxiety disorder unspecified. Impulse control disorder unspecified. Plan: No change from initial note. Assessment: Vital Signs/I&O: Vital Signs Date Time Temp Pulse Resp B/P (MAP) Pulse Ox O2 Delivery O2 Flow Rate FiO2 07/08/20 06:38 97.6 78 20 133/91 (105) 93 Room Air 07/04/20 09:29 2.5 I & O 07/07/20 07/07/20 07/08/20 15:00 23:00 07:00 Intake Total 1080 ml 720 ml Balance 1080 ml 720 ml Labs: Laboratory Tests Test 07/08/20 06:37 White Blood Count 6.1 x10^3/uL (4.0-11.0) Red Blood Count 3.56 x10^6/uL (4.30-5.70) L Hemoglobin 9.5 g/dL (13.0-17.5) L Hematocrit 30.0 % (39.0-53.0) L Mean Corpuscular Volume 84 fL (79-100) Mean Corpuscular Hemoglobin 27 pg (25-35) Mean Corpuscular Hemoglobin Concent 32 g/dL (31-37) Red Cell Distribution Width 14.1 % (11.5-14.5) Platelet Count 219 x10^3/uL (140-400) Neutrophils (%) (Auto) 56 % (31-73) Lymphocytes (%) (Auto) 26 % (24-48) Monocytes (%) (Auto) 14 % (0-9) H Eosinophils (%) (Auto) 3 % (0-3) Basophils (%) (Auto) 1 % (0-3) Neutrophils # (Auto) 3.4 x10^3uL (1.8-7.7) Lymphocytes # (Auto) 1.6 x10^3/uL (1.0-4.8) Monocytes # (Auto) 0.8 x10^3/uL (0.0-1.1) Eosinophils # (Auto) 0.2 x10^3/uL (0.0-0.7) Basophils # (Auto) 0.1 x10^3/uL (0.0-0.2) Sodium Level 142 mmol/L (136-145) Potassium Level 4.2 mmol/L (3.5-5.1) Chloride Level 104 mmol/L (98-107) Carbon Dioxide Level 31 mmol/L (21-32) Anion Gap 7 (6-14) Blood Urea Nitrogen 14 mg/dL (8-26) Creatinine 0.9 mg/dL (0.7-1.3) Estimated GFR (Cockcroft-Gault) 101.5 BUN/Creatinine Ratio 16 (6-20) Glucose Level 75 mg/dL (70-99) Calcium Level 8.5 mg/dL (8.5-10.1) Total Bilirubin 0.2 mg/dL (0.2-1.0) Aspartate Amino Transferase (AST) 11 U/L (15-37) L Alanine Aminotransferase (ALT) 18 U/L (16-63) Alkaline Phosphatase 99 U/L (46-116) Total Protein 6.5 g/dL (6.4-8.2) Albumin 3.0 g/dL (3.4-5.0) L Albumin/Globulin Ratio 0.9 (1.0-1.7) L Current Medications: Meds: Laboratory Tests Test 07/08/20 06:37 White Blood Count 6.1 x10^3/uL Red Blood Count 3.56 x10^6/uL Hemoglobin 9.5 g/dL Hematocrit 30.0 % Mean Corpuscular Volume 84 fL Mean Corpuscular Hemoglobin 27 pg Mean Corpuscular Hemoglobin Concent 32 g/dL Red Cell Distribution Width 14.1 % Platelet Count 219 x10^3/uL Neutrophils (%) (Auto) 56 % Lymphocytes (%) (Auto) 26 % Monocytes (%) (Auto) 14 % Eosinophils (%) (Auto) 3 % Basophils (%) (Auto) 1 % Neutrophils # (Auto) 3.4 x10^3uL Lymphocytes # (Auto) 1.6 x10^3/uL Monocytes # (Auto) 0.8 x10^3/uL Eosinophils # (Auto) 0.2 x10^3/uL Basophils # (Auto) 0.1 x10^3/uL Sodium Level 142 mmol/L Potassium Level 4.2 mmol/L Chloride Level 104 mmol/L Carbon Dioxide Level 31 mmol/L Anion Gap 7 Blood Urea Nitrogen 14 mg/dL Creatinine 0.9 mg/dL Estimated GFR (Cockcroft-Gault) 101.5 BUN/Creatinine Ratio 16 Glucose Level 75 mg/dL Calcium Level 8.5 mg/dL Total Bilirubin 0.2 mg/dL Aspartate Amino Transf (AST/SGOT) 11 U/L Alanine Aminotransferase (ALT/SGPT) 18 U/L Alkaline Phosphatase 99 U/L Total Protein 6.5 g/dL Albumin 3.0 g/dL Albumin/Globulin Ratio 0.9 Current Medications Medications (Trade) Dose Ordered Sig/Jasmeet Route PRN Reason Start Time Stop Time Status Last Admin Dose Admin Acetaminophen (Tylenol) 650 mg PRN Q4HRS PRN PO MILD PAIN / TEMP > 100.3'F 06/15/20 18:00 06/26/20 15:15 Amlodipine Besylate (Norvasc) 2.5 mg BID PO 06/15/20 21:00 07/07/20 19:41 Cetirizine HCl (ZyrTEC) 10 mg HS PO 06/15/20 21:00 07/07/20 19:41 Docusate Sodium (Colace) 100 mg PRN BID PRN PO CONSTIPATION 06/15/20 18:00 Multivit/Ca Carb/ B Cmplx/FA/Prenat (Nephro-Marilyn) 1 tab DAILY PO 06/16/20 09:00 07/07/20 08:35 Acetaminophen/ Hydrocodone Bitart (Lortab 7.5/325) 1 tab BID PO 06/15/20 21:00 07/07/20 19:40 Lorazepam (Ativan) 0.5 mg BID PO 06/15/20 21:00 06/26/20 18:20 DC 06/26/20 09:39 Al Hydroxide/Mg Hydroxide (Mylanta Plus Xs) 30 ml PRN DAILY PRN PO DYSPEPSIA 06/15/20 18:00 06/25/20 20:44 Al Hydroxide/Mg Hydroxide (Mylanta Plus Xs) 355 ml DAILY PO 06/16/20 09:00 UNV Quetiapine Fumarate (SEROquel) 25 mg HS PO 06/15/20 21:00 06/16/20 16:15 DC 06/15/20 20:09 Thiamine HCl (Vitamin B-1) 100 mg BID PO 06/15/20 21:00 07/07/20 19:39 Trazodone HCl (Desyrel) 100 mg BID PO 06/15/20 21:00 06/23/20 17:55 DC 06/23/20 07:54 Pantoprazole Sodium (Protonix) 40 mg DAILY PO 06/16/20 09:00 07/07/20 08:35 Olanzapine (ZyPREXA ZYDIS) 5 mg PRN Q2HR PRN PO PSYCHOSIS 06/15/20 18:00 06/21/20 20:03 Quetiapine Fumarate (SEROquel) 25 mg TIDAC PO 06/17/20 09:00 06/24/20 14:08 DC 06/24/20 11:37 Mirtazapine (Remeron) 7.5 mg QHS PO 06/16/20 21:00 06/18/20 20:59 DC 06/17/20 18:34 Sertraline HCl (Zoloft) 25 mg DAILY PO 06/19/20 09:00 06/21/20 09:00 DC 06/21/20 09:01 Mirtazapine (Remeron) 7.5 mg QHS PO 06/18/20 21:00 06/18/20 20:59 DC Mirtazapine (Remeron) 15 mg QHS PO 06/18/20 21:00 06/26/20 18:20 DC 06/25/20 20:43 Divalproex Sodium (Depakote Sprinkles) 250 mg 0900,2100 PO 06/19/20 21:00 07/07/20 19:40 Al Hydroxide/Mg Hydroxide (Mylanta Plus Xs) 30 ml 1X ONCE PO 06/20/20 16:00 06/20/20 16:02 DC 06/20/20 16:00 Sertraline HCl (Zoloft) 50 mg DAILY PO 06/22/20 09:00 07/07/20 08:35 Melatonin (Melatonin) 3 mg PRN QHS PRN PO INSOMNIA 06/20/20 18:30 07/05/20 19:38 Al Hydroxide/Mg Hydroxide (Mylanta Plus Xs) 30 ml DAILY08 PO 06/23/20 08:00 06/22/20 14:58 DC Al Hydroxide/Mg Hydroxide (Mylanta Plus Xs) 30 ml 0800,1300,1700 PO 06/22/20 15:00 07/07/20 17:18 Trazodone HCl (Desyrel) 200 mg HS PO 06/23/20 21:00 07/07/20 19:42 Quetiapine Fumarate (SEROquel) 25 mg DAILY PO 06/25/20 09:00 07/07/20 08:35 Quetiapine Fumarate (SEROquel) 75 mg QHS PO 06/24/20 21:00 07/07/20 19:38 Lorazepam (Ativan) 0.5 mg QHS PO 06/26/20 21:00 07/07/20 19:40 Amitriptyline HCl (Elavil) 25 mg QHS PO 06/26/20 21:00 06/27/20 18:48 DC 06/26/20 21:29 Amitriptyline HCl (Elavil) 50 mg QHS PO 06/27/20 21:00 07/07/20 19:41 I have reviewed the current psychotropics carefully including drug interactions. Risk benefit ratio favors no change other than as noted in my dictated progress note. Diagnosis: Problems: (1) Impulse control disorder, unspecified (2) Anxiety disorder, unspecified (3) Dementia, vascular, with depression (4) Dementia, vascular, with delusions (5) Dementia in Alzheimer's disease with depression (6) Dementia in Alzheimer's disease with delusions (7) Major neurocognitive disorder (8) Dementia associated with alcoholism with behavioral disturbance ARY PABLO MD Jul 08, 2020 08:02
[2020-07-08] MEDS: FOLIC/VIT B COMP W-C (RENAL) TABLET. PO SCH (08:03)
--- NOTE | 2020-07-08 16:02 | NUR ---
Pt up adl to meals. Has been pleasant. Compliant with meds and cares.
[2020-07-08 16:25] VITALS: BP 123/76
[2020-07-08] MEDS: AMITRIPTYLINE HCL 50 MG TABLET PO SCH (19:34)
[2020-07-08] MEDS: LORazepam 0.5 MG TABLET PO SCH (19:34)
[2020-07-08] MEDS: CETIRIZINE HCL 10 MG TABLET PO SCH (19:35)
[2020-07-08] MEDS: traZODone 100 MG TABLET. PO SCH (19:35)
--- NOTE | 2020-07-08 21:06 | PDOC ---
Exam Note: Srini Note: Please also refer to the separate dictated note~for this date of service dictated separately.~Patient seen individually. Discussed the patient with Nursing staff reviewed the chart.~Reviewed interim history and current functioning. Reviewed vital signs,~Labs/ Radiology~and current medications noted below. Continue current treatment with the changes noted in the dictated addendum note Assessment: Vital Signs/I&O: Vital Signs Date Time Temp Pulse Resp B/P (MAP) Pulse Ox O2 Delivery O2 Flow Rate FiO2 07/08/20 20:39 98 07/08/20 19:35 92 123/76 07/08/20 16:25 98.0 20 Room Air 07/04/20 09:29 2.5 I & O 07/07/20 07/07/20 07/08/20 14:59 22:59 06:59 Intake Total 1080 ml 720 ml Balance 1080 ml 720 ml Labs: Laboratory Tests Test 07/08/20 06:37 White Blood Count 6.1 x10^3/uL (4.0-11.0) Red Blood Count 3.56 x10^6/uL (4.30-5.70) L Hemoglobin 9.5 g/dL (13.0-17.5) L Hematocrit 30.0 % (39.0-53.0) L Mean Corpuscular Volume 84 fL (79-100) Mean Corpuscular Hemoglobin 27 pg (25-35) Mean Corpuscular Hemoglobin Concent 32 g/dL (31-37) Red Cell Distribution Width 14.1 % (11.5-14.5) Platelet Count 219 x10^3/uL (140-400) Neutrophils (%) (Auto) 56 % (31-73) Lymphocytes (%) (Auto) 26 % (24-48) Monocytes (%) (Auto) 14 % (0-9) H Eosinophils (%) (Auto) 3 % (0-3) Basophils (%) (Auto) 1 % (0-3) Neutrophils # (Auto) 3.4 x10^3uL (1.8-7.7) Lymphocytes # (Auto) 1.6 x10^3/uL (1.0-4.8) Monocytes # (Auto) 0.8 x10^3/uL (0.0-1.1) Eosinophils # (Auto) 0.2 x10^3/uL (0.0-0.7) Basophils # (Auto) 0.1 x10^3/uL (0.0-0.2) Sodium Level 142 mmol/L (136-145) Potassium Level 4.2 mmol/L (3.5-5.1) Chloride Level 104 mmol/L (98-107) Carbon Dioxide Level 31 mmol/L (21-32) Anion Gap 7 (6-14) Blood Urea Nitrogen 14 mg/dL (8-26) Creatinine 0.9 mg/dL (0.7-1.3) Estimated GFR (Cockcroft-Gault) 101.5 BUN/Creatinine Ratio 16 (6-20) Glucose Level 75 mg/dL (70-99) Calcium Level 8.5 mg/dL (8.5-10.1) Total Bilirubin 0.2 mg/dL (0.2-1.0) Aspartate Amino Transferase (AST) 11 U/L (15-37) L Alanine Aminotransferase (ALT) 18 U/L (16-63) Alkaline Phosphatase 99 U/L (46-116) Total Protein 6.5 g/dL (6.4-8.2) Albumin 3.0 g/dL (3.4-5.0) L Albumin/Globulin Ratio 0.9 (1.0-1.7) L Current Medications: Meds: Laboratory Tests Test 07/08/20 06:37 White Blood Count 6.1 x10^3/uL Red Blood Count 3.56 x10^6/uL Hemoglobin 9.5 g/dL Hematocrit 30.0 % Mean Corpuscular Volume 84 fL Mean Corpuscular Hemoglobin 27 pg Mean Corpuscular Hemoglobin Concent 32 g/dL Red Cell Distribution Width 14.1 % Platelet Count 219 x10^3/uL Neutrophils (%) (Auto) 56 % Lymphocytes (%) (Auto) 26 % Monocytes (%) (Auto) 14 % Eosinophils (%) (Auto) 3 % Basophils (%) (Auto) 1 % Neutrophils # (Auto) 3.4 x10^3uL Lymphocytes # (Auto) 1.6 x10^3/uL Monocytes # (Auto) 0.8 x10^3/uL Eosinophils # (Auto) 0.2 x10^3/uL Basophils # (Auto) 0.1 x10^3/uL Sodium Level 142 mmol/L Potassium Level 4.2 mmol/L Chloride Level 104 mmol/L Carbon Dioxide Level 31 mmol/L Anion Gap 7 Blood Urea Nitrogen 14 mg/dL Creatinine 0.9 mg/dL Estimated GFR (Cockcroft-Gault) 101.5 BUN/Creatinine Ratio 16 Glucose Level 75 mg/dL Calcium Level 8.5 mg/dL Total Bilirubin 0.2 mg/dL Aspartate Amino Transf (AST/SGOT) 11 U/L Alanine Aminotransferase (ALT/SGPT) 18 U/L Alkaline Phosphatase 99 U/L Total Protein 6.5 g/dL Albumin 3.0 g/dL Albumin/Globulin Ratio 0.9 Current Medications Medications (Trade) Dose Ordered Sig/Jasmeet Route PRN Reason Start Time Stop Time Status Last Admin Dose Admin Acetaminophen (Tylenol) 650 mg PRN Q4HRS PRN PO MILD PAIN / TEMP > 100.3'F 06/15/20 18:00 06/26/20 15:15 Amlodipine Besylate (Norvasc) 2.5 mg BID PO 06/15/20 21:00 07/08/20 19:35 Cetirizine HCl (ZyrTEC) 10 mg HS PO 06/15/20 21:00 07/08/20 19:35 Docusate Sodium (Colace) 100 mg PRN BID PRN PO CONSTIPATION 06/15/20 18:00 Multivit/Ca Carb/ B Cmplx/FA/Prenat (Nephro-Marilyn) 1 tab DAILY PO 06/16/20 09:00 07/08/20 08:03 Acetaminophen/ Hydrocodone Bitart (Lortab 7.5/325) 1 tab BID PO 06/15/20 21:00 07/08/20 19:34 Lorazepam (Ativan) 0.5 mg BID PO 06/15/20 21:00 06/26/20 18:20 DC 06/26/20 09:39 Al Hydroxide/Mg Hydroxide (Mylanta Plus Xs) 30 ml PRN DAILY PRN PO DYSPEPSIA 06/15/20 18:00 06/25/20 20:44 Al Hydroxide/Mg Hydroxide (Mylanta Plus Xs) 355 ml DAILY PO 06/16/20 09:00 UNV Quetiapine Fumarate (SEROquel) 25 mg HS PO 06/15/20 21:00 06/16/20 16:15 DC 06/15/20 20:09 Thiamine HCl (Vitamin B-1) 100 mg BID PO 06/15/20 21:00 07/08/20 19:33 Trazodone HCl (Desyrel) 100 mg BID PO 06/15/20 21:00 06/23/20 17:55 DC 06/23/20 07:54 Pantoprazole Sodium (Protonix) 40 mg DAILY PO 06/16/20 09:00 07/08/20 08:00 Olanzapine (ZyPREXA ZYDIS) 5 mg PRN Q2HR PRN PO PSYCHOSIS 06/15/20 18:00 06/21/20 20:03 Quetiapine Fumarate (SEROquel) 25 mg TIDAC PO 06/17/20 09:00 06/24/20 14:08 DC 06/24/20 11:37 Mirtazapine (Remeron) 7.5 mg QHS PO 06/16/20 21:00 06/18/20 20:59 DC 06/17/20 18:34 Sertraline HCl (Zoloft) 25 mg DAILY PO 06/19/20 09:00 06/21/20 09:00 DC 06/21/20 09:01 Mirtazapine (Remeron) 7.5 mg QHS PO 06/18/20 21:00 06/18/20 20:59 DC Mirtazapine (Remeron) 15 mg QHS PO 06/18/20 21:00 06/26/20 18:20 DC 06/25/20 20:43 Divalproex Sodium (Depakote Sprinkles) 250 mg 0900,2100 PO 06/19/20 21:00 07/08/20 19:33 Al Hydroxide/Mg Hydroxide (Mylanta Plus Xs) 30 ml 1X ONCE PO 06/20/20 16:00 06/20/20 16:02 DC 06/20/20 16:00 Sertraline HCl (Zoloft) 50 mg DAILY PO 06/22/20 09:00 07/08/20 08:00 Melatonin (Melatonin) 3 mg PRN QHS PRN PO INSOMNIA 06/20/20 18:30 07/05/20 19:38 Al Hydroxide/Mg Hydroxide (Mylanta Plus Xs) 30 ml DAILY08 PO 06/23/20 08:00 06/22/20 14:58 DC Al Hydroxide/Mg Hydroxide (Mylanta Plus Xs) 30 ml 0800,1300,1700 PO 06/22/20 15:00 07/08/20 17:13 Trazodone HCl (Desyrel) 200 mg HS PO 06/23/20 21:00 07/08/20 19:35 Quetiapine Fumarate (SEROquel) 25 mg DAILY PO 06/25/20 09:00 07/08/20 08:00 Quetiapine Fumarate (SEROquel) 75 mg QHS PO 06/24/20 21:00 07/08/20 19:33 Lorazepam (Ativan) 0.5 mg QHS PO 06/26/20 21:00 07/08/20 19:34 Amitriptyline HCl (Elavil) 25 mg QHS PO 06/26/20 21:00 06/27/20 18:48 DC 06/26/20 21:29 Amitriptyline HCl (Elavil) 50 mg QHS PO 06/27/20 21:00 07/08/20 19:34 I have reviewed the current psychotropics carefully including drug interactions. Risk benefit ratio favors no change other than as noted in my dictated progress note. Diagnosis: Problems: (1) Impulse control disorder, unspecified (2) Anxiety disorder, unspecified (3) Dementia, vascular, with depression (4) Dementia, vascular, with delusions (5) Dementia in Alzheimer's disease with depression (6) Dementia in Alzheimer's disease with delusions (7) Major neurocognitive disorder (8) Dementia associated with alcoholism with behavioral disturbance ARY PABLO MD Jul 08, 2020 21:06
[2020-07-08] MEDS ORDERED: DIVA125C2 PO (22:06)
[2020-07-08] MEDS ORDERED: AMIT50TA PO (22:07)
[2020-07-08] MEDS ORDERED: SERT50TA PO (22:08)
[2020-07-08] MEDS ORDERED: OLAN5TAB3 PO (22:12)
[2020-07-08] MEDS ORDERED: OLAN5TAB7 PO (22:14)
[2020-07-08] MEDS ORDERED: QUET25TA5 PO (22:17)
[2020-07-08] MEDS ORDERED: MELA3TAB4 PO (22:20)
[2020-07-09 06:30] VITALS: BP 109/68
[2020-07-09] MEDS: MAG HYDROX/AL HYDROX/SIMETH 30 ML ORAL.SUSP PO SCH (08:11)
[2020-07-09] MEDS: SERTRALINE 50 MG TABLET. PO SCH (08:11)
[2020-07-09 08:12] VITALS: BP 109/68
[2020-07-09] MEDS: THIAMINE 100 MG TABLET. PO SCH (08:12)
[2020-07-09] MEDS: amLODIPine BESYLATE 2.5 MG TABLET PO SCH (08:12)
[2020-07-09] MEDS: PANTOPRAZOLE 40 MG TABLET. PO SCH (08:12)
[2020-07-09] MEDS: HYDROcodone/APAP 7.5/325MG 1 TAB TABLET PO SCH (08:12)
[2020-07-09] MEDS: QUEtiapine 25 MG TABLET. PO SCH (08:12)
[2020-07-09] MEDS: DIVALPROEX 125 MG CAP.SPRINK PO SCH (08:12)
[2020-07-09] MEDS: FOLIC/VIT B COMP W-C (RENAL) TABLET. PO SCH (08:13)
--- NOTE | 2020-07-09 08:36 | PDOC ---
Exam Note: Srini Note: This note is a late entry for 07/08/2020 covers elements not covered in my initial note. Subjective: The patient was seen individually in the evening of 07/08/2020 with Hayley LY, discussed and reviewed the chart. The patient slept just 4 hours previous night. He remains withdrawn to his room, but otherwise less angry, irritable, labile, pleasant. We discussed discharge plans for tomorrow. Review of Systems: No CV, , pulmonary, eye, ENT system symptoms on review. Mental Status Exam: The patient is oriented to himself and situation. Speech is coherent less. Abstraction is fair. Computation impaired. Language function is intact. Mood and affect less anxious, confused. Laboratory Data: Reviewed. Impression: Major neurocognitive disorder Alzheimer vascular with delusion, depression, behavioral disturbance. Anxiety disorder unspecified. Impulse control disorder unspecified. Plan: No change from initial note. Assessment: Vital Signs/I&O: Vital Signs Date Time Temp Pulse Resp B/P (MAP) Pulse Ox O2 Delivery O2 Flow Rate FiO2 07/09/20 08:12 82 109/68 07/09/20 06:30 97.8 20 97 Room Air 07/04/20 09:29 2.5 I & O 07/08/20 07/08/20 07/09/20 14:59 22:59 06:59 Intake Total 1260 ml 600 ml Balance 1260 ml 600 ml Current Medications: Meds: Current Medications Medications (Trade) Dose Ordered Sig/Jasmeet Route PRN Reason Start Time Stop Time Status Last Admin Dose Admin Acetaminophen (Tylenol) 650 mg PRN Q4HRS PRN PO MILD PAIN / TEMP > 100.3'F 06/15/20 18:00 06/26/20 15:15 Amlodipine Besylate (Norvasc) 2.5 mg BID PO 06/15/20 21:00 07/09/20 08:12 Cetirizine HCl (ZyrTEC) 10 mg HS PO 06/15/20 21:00 07/08/20 19:35 Docusate Sodium (Colace) 100 mg PRN BID PRN PO CONSTIPATION 06/15/20 18:00 Multivit/Ca Carb/ B Cmplx/FA/Prenat (Nephro-Marilyn) 1 tab DAILY PO 06/16/20 09:00 07/09/20 08:13 Acetaminophen/ Hydrocodone Bitart (Lortab 7.5/325) 1 tab BID PO 06/15/20 21:00 07/09/20 08:12 Lorazepam (Ativan) 0.5 mg BID PO 06/15/20 21:00 06/26/20 18:20 DC 06/26/20 09:39 Al Hydroxide/Mg Hydroxide (Mylanta Plus Xs) 30 ml PRN DAILY PRN PO DYSPEPSIA 06/15/20 18:00 06/25/20 20:44 Al Hydroxide/Mg Hydroxide (Mylanta Plus Xs) 355 ml DAILY PO 06/16/20 09:00 UNV Quetiapine Fumarate (SEROquel) 25 mg HS PO 06/15/20 21:00 06/16/20 16:15 DC 06/15/20 20:09 Thiamine HCl (Vitamin B-1) 100 mg BID PO 06/15/20 21:00 07/09/20 08:12 Trazodone HCl (Desyrel) 100 mg BID PO 06/15/20 21:00 06/23/20 17:55 DC 06/23/20 07:54 Pantoprazole Sodium (Protonix) 40 mg DAILY PO 06/16/20 09:00 07/09/20 08:12 Olanzapine (ZyPREXA ZYDIS) 5 mg PRN Q2HR PRN PO PSYCHOSIS 06/15/20 18:00 06/21/20 20:03 Quetiapine Fumarate (SEROquel) 25 mg TIDAC PO 06/17/20 09:00 06/24/20 14:08 DC 06/24/20 11:37 Mirtazapine (Remeron) 7.5 mg QHS PO 06/16/20 21:00 06/18/20 20:59 DC 06/17/20 18:34 Sertraline HCl (Zoloft) 25 mg DAILY PO 06/19/20 09:00 06/21/20 09:00 DC 06/21/20 09:01 Mirtazapine (Remeron) 7.5 mg QHS PO 06/18/20 21:00 06/18/20 20:59 DC Mirtazapine (Remeron) 15 mg QHS PO 06/18/20 21:00 06/26/20 18:20 DC 06/25/20 20:43 Divalproex Sodium (Depakote Sprinkles) 250 mg 0900,2100 PO 06/19/20 21:00 07/09/20 08:12 Al Hydroxide/Mg Hydroxide (Mylanta Plus Xs) 30 ml 1X ONCE PO 06/20/20 16:00 06/20/20 16:02 DC 06/20/20 16:00 Sertraline HCl (Zoloft) 50 mg DAILY PO 06/22/20 09:00 07/09/20 08:11 Melatonin (Melatonin) 3 mg PRN QHS PRN PO INSOMNIA 06/20/20 18:30 07/05/20 19:38 Al Hydroxide/Mg Hydroxide (Mylanta Plus Xs) 30 ml DAILY08 PO 06/23/20 08:00 06/22/20 14:58 DC Al Hydroxide/Mg Hydroxide (Mylanta Plus Xs) 30 ml 0800,1300,1700 PO 06/22/20 15:00 07/09/20 08:11 Trazodone HCl (Desyrel) 200 mg HS PO 06/23/20 21:00 07/08/20 19:35 Quetiapine Fumarate (SEROquel) 25 mg DAILY PO 06/25/20 09:00 07/09/20 08:12 Quetiapine Fumarate (SEROquel) 75 mg QHS PO 06/24/20 21:00 07/08/20 19:33 Lorazepam (Ativan) 0.5 mg QHS PO 06/26/20 21:00 07/08/20 19:34 Amitriptyline HCl (Elavil) 25 mg QHS PO 06/26/20 21:00 06/27/20 18:48 DC 06/26/20 21:29 Amitriptyline HCl (Elavil) 50 mg QHS PO 06/27/20 21:00 07/08/20 19:34 I have reviewed the current psychotropics carefully including drug interactions. Risk benefit ratio favors no change other than as noted in my dictated progress note. Diagnosis: Problems: (1) Impulse control disorder, unspecified (2) Anxiety disorder, unspecified (3) Dementia, vascular, with depression (4) Dementia, vascular, with delusions (5) Dementia in Alzheimer's disease with depression (6) Dementia in Alzheimer's disease with delusions (7) Major neurocognitive disorder (8) Dementia associated with alcoholism with behavioral disturbance ARY PABLO MD Jul 09, 2020 08:36
--- NOTE | 2020-07-09 10:10 | NUR ---
Transition Record was faxed to follow-up provider with the following elements: Reason for admission, procedures, tests, principal diagnosis, pending studies, patient instructions, 24/11 contact information for unit, phone number to obtain pending test results, plan for follow-up care, physician follow-up, advanced directive information, and medication list with dose, duration and instructions. This information was included in the following documents: History and physical, lab results, study results, progress notes, social work planning form, DC instruction form, patient visit summary, and medication reconciliation form. Date & time record faxed: 07/08/2020 Record faxed to: [phone] Record discussed with/ report given to: None-Patient picked p by [facility] D/C information given to patient. Written Instructions/labs and last notes given.
--- NOTE | 2020-07-09 21:29 | PDOC ---
Exam Note: Srini Note: Please also refer to the separate dictated note~for this date of service dictated separately.~Patient seen individually. Discussed the patient with Nursing staff reviewed the chart.~Reviewed interim history and current functioning. Reviewed vital signs,~Labs/ Radiology~and current medications noted below. Continue current treatment with the changes noted in the dictated addendum note Assessment: Vital Signs/I&O: Vital Signs Date Time Temp Pulse Resp B/P (MAP) Pulse Ox O2 Delivery O2 Flow Rate FiO2 07/09/20 08:12 82 109/68 07/09/20 06:30 97.8 20 97 Room Air 07/04/20 09:29 2.5 I & O 07/08/20 07/08/20 07/09/20 15:00 23:00 07:00 Intake Total 1260 ml 600 ml Balance 1260 ml 600 ml Current Medications: Meds: Current Medications Medications (Trade) Dose Ordered Sig/Jasmeet Route PRN Reason Start Time Stop Time Status Last Admin Dose Admin Acetaminophen (Tylenol) 650 mg PRN Q4HRS PRN PO MILD PAIN / TEMP > 100.3'F 06/15/20 18:00 07/09/20 10:16 DC 06/26/20 15:15 Amlodipine Besylate (Norvasc) 2.5 mg BID PO 06/15/20 21:00 07/09/20 10:16 DC 07/09/20 08:12 Cetirizine HCl (ZyrTEC) 10 mg HS PO 06/15/20 21:00 07/09/20 10:16 DC 07/08/20 19:35 Docusate Sodium (Colace) 100 mg PRN BID PRN PO CONSTIPATION 06/15/20 18:00 07/09/20 10:16 DC Multivit/Ca Carb/ B Cmplx/FA/Prenat (Nephro-Marilyn) 1 tab DAILY PO 06/16/20 09:00 07/09/20 10:16 DC 07/09/20 08:13 Acetaminophen/ Hydrocodone Bitart (Lortab 7.5/325) 1 tab BID PO 06/15/20 21:00 07/09/20 10:16 DC 07/09/20 08:12 Lorazepam (Ativan) 0.5 mg BID PO 06/15/20 21:00 06/26/20 18:20 DC 06/26/20 09:39 Al Hydroxide/Mg Hydroxide (Mylanta Plus Xs) 30 ml PRN DAILY PRN PO DYSPEPSIA 06/15/20 18:00 07/09/20 10:16 DC 06/25/20 20:44 Al Hydroxide/Mg Hydroxide (Mylanta Plus Xs) 355 ml DAILY PO 06/16/20 09:00 UNV Quetiapine Fumarate (SEROquel) 25 mg HS PO 06/15/20 21:00 06/16/20 16:15 DC 06/15/20 20:09 Thiamine HCl (Vitamin B-1) 100 mg BID PO 06/15/20 21:00 07/09/20 10:16 DC 07/09/20 08:12 Trazodone HCl (Desyrel) 100 mg BID PO 06/15/20 21:00 06/23/20 17:55 DC 06/23/20 07:54 Pantoprazole Sodium (Protonix) 40 mg DAILY PO 06/16/20 09:00 07/09/20 10:16 DC 07/09/20 08:12 Olanzapine (ZyPREXA ZYDIS) 5 mg PRN Q2HR PRN PO PSYCHOSIS 06/15/20 18:00 07/09/20 10:16 DC 06/21/20 20:03 Quetiapine Fumarate (SEROquel) 25 mg TIDAC PO 06/17/20 09:00 06/24/20 14:08 DC 06/24/20 11:37 Mirtazapine (Remeron) 7.5 mg QHS PO 06/16/20 21:00 06/18/20 20:59 DC 06/17/20 18:34 Sertraline HCl (Zoloft) 25 mg DAILY PO 06/19/20 09:00 06/21/20 09:00 DC 06/21/20 09:01 Mirtazapine (Remeron) 7.5 mg QHS PO 06/18/20 21:00 06/18/20 20:59 DC Mirtazapine (Remeron) 15 mg QHS PO 06/18/20 21:00 06/26/20 18:20 DC 06/25/20 20:43 Divalproex Sodium (Depakote Sprinkles) 250 mg 0900,2100 PO 06/19/20 21:00 07/09/20 10:16 DC 07/09/20 08:12 Al Hydroxide/Mg Hydroxide (Mylanta Plus Xs) 30 ml 1X ONCE PO 06/20/20 16:00 06/20/20 16:02 DC 06/20/20 16:00 Sertraline HCl (Zoloft) 50 mg DAILY PO 06/22/20 09:00 07/09/20 10:16 DC 07/09/20 08:11 Melatonin (Melatonin) 3 mg PRN QHS PRN PO INSOMNIA 06/20/20 18:30 07/09/20 10:16 DC 07/05/20 19:38 Al Hydroxide/Mg Hydroxide (Mylanta Plus Xs) 30 ml DAILY08 PO 06/23/20 08:00 06/22/20 14:58 DC Al Hydroxide/Mg Hydroxide (Mylanta Plus Xs) 30 ml 0800,1300,1700 PO 06/22/20 15:00 07/09/20 10:16 DC 07/09/20 08:11 Trazodone HCl (Desyrel) 200 mg HS PO 06/23/20 21:00 07/09/20 10:16 DC 07/08/20 19:35 Quetiapine Fumarate (SEROquel) 25 mg DAILY PO 06/25/20 09:00 07/09/20 10:16 DC 07/09/20 08:12 Quetiapine Fumarate (SEROquel) 75 mg QHS PO 06/24/20 21:00 07/09/20 10:16 DC 07/08/20 19:33 Lorazepam (Ativan) 0.5 mg QHS PO 06/26/20 21:00 07/09/20 10:16 DC 07/08/20 19:34 Amitriptyline HCl (Elavil) 25 mg QHS PO 06/26/20 21:00 06/27/20 18:48 DC 06/26/20 21:29 Amitriptyline HCl (Elavil) 50 mg QHS PO 06/27/20 21:00 07/09/20 10:16 DC 07/08/20 19:34 I have reviewed the current psychotropics carefully including drug interactions. Risk benefit ratio favors no change other than as noted in my dictated progress note. Diagnosis: Problems: (1) Impulse control disorder, unspecified (2) Anxiety disorder, unspecified (3) Dementia, vascular, with depression (4) Dementia, vascular, with delusions (5) Dementia in Alzheimer's disease with depression (6) Dementia in Alzheimer's disease with delusions (7) Major neurocognitive disorder (8) Dementia associated with alcoholism with behavioral disturbance ARY PABLO MD Jul 09, 2020 21:29
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
== END 2020-07-09 10:16 | disposition home or self-care (01) | DRG 885 ==
LOC: GEROPSY 15:24
PROVIDERS: ADMIT Psychiatry & Neurology Psychiatry; ATTEND Psychiatry & Neurology Psychiatry
DX: F32.4 Major depressive disorder, single episode, in partial remission (principal); F01.50 Vascular dementia, unspecified severity, without behavioral disturbance, psychotic disturbance, mood disturbance, and anxiety; F10.27 Alcohol dependence with alcohol-induced persisting dementia; G89.29 Other chronic pain; K21.9 Gastro-esophageal reflux disease without esophagitis; F41.9 Anxiety disorder, unspecified; F63.9 Impulse disorder, unspecified; D64.9 Anemia, unspecified; E78.5 Hyperlipidemia, unspecified; F02.80 Dementia in other diseases classified elsewhere, unspecified severity, without behavioral disturbance, psychotic disturbance, mood disturbance, and anxiety; F10.26 Alcohol dependence with alcohol-induced persisting amnestic disorder; F20.9 Schizophrenia, unspecified; G30.9 Alzheimer's disease, unspecified; G47.00 Insomnia, unspecified; I10 Essential (primary) hypertension; R13.10 Dysphagia, unspecified; Z79.899 Other long term (current) drug therapy; Z20.822 Contact with and (suspected) exposure to COVID-19
CPT/HCPCS: 36415; 73562; 80053; 80061; 80164; 81001; 82306; 82607; 83036; 83540; 83550; 83735; 84436; 84443; 84480; 85025; 86592; 93005; 93970; U0003; 92610